=== PATIENT | male | born 1990 | race American Indian/Alaskan Native ===

== ENCOUNTER 2021-04-01 15:13 | Emergency (ER) | payer SELFPAY ==
--- OUTSIDE RECORDS SUMMARY | 2021-04-01 15:16 | XMS REPORT | Continuity of Care Document ---
:1990 Author Organization [facility] t Address [address] [place] [address] Care Team Providers Name Role Phone UNKNOWN, REFFERING Primary Care Physician Unavailable ADINA RYAN M.D., ADINA Ash M.D. Attending Clinician Unavailable ADINA RYAN M.D., ADINA Ash Admitting Clinician Lobo giang Problems This patient has no known problems. Allergies, Adverse Reactions, Alerts This patient has no known allergies or adverse reactions. Medications This patient has no known medications. Procedures This patient has no known procedures. Results Test Description Test Time Test Comments Results Result Comments Source Ceruloplasmin 2017-08-17 08:36:00 Test Item Value Reference Range Interpretation Comme nts Ceruloplasmin (test code = 496429) 24.9 mg/dL 16.0-31.0 N Treponema Pallidum [id number] 22:05:00 Test Item Value Reference Range Interpretation Comments Treponemal Antibody IgG (test Non-reactive Non-reactive N code = TREPAB) [id number] 07:39:00 Test Item Value Reference Range Interpretation Comments Phosphorus (test code = PO4) 4.2 mg/dL 2.70-4.50 N Thyroid Stimulating Hormone (TSH)2017-08-07 07:51:00 Test Item Value Reference Range Interpretation Comments TSH (test code = TSH) 1.33 mIU/mL 0.270-4.200 N Lipid [id number] 07:46:00 Test Item Value Reference Range Interpretation Comments Cholesterol (test 177 mg/dL 0-200 N code = CHOL) Triglycerides (test 71 mg/dL 9-200 N code = TRIG) HDL (test code = 39 mg/dL 40-60 L HDL) Chol/HDL (test code 4.5 Ratio 0.0-5.0 N = CHOLPHDL) LDL, Calculated 124 0-130 N (NOTE)RISK O F HEART (test code = LDLC) DISEASEPu blished by Russian Heart AssociationAnal yte Optim al Boderline Increased RiskC HOL <200 200-239 >240TRI G <150 150-199 >200HDL Male: >60 <40HDL Female: >60 <50 LDL < 100 130-15 9 >160 LDL NEAR OPTIMAL IS 100- 129 VLDL (test code = 14 mg/dL 5-40 N VLDL) LDL/HDL (test code = 3 LDLPHDL) RPR, [id number] 06:55:00 Test Item Value Reference Range Interpretation Comments RPR (test code = RPR) Non-Reactive Non-Reactive N [id number] 22:21:00 Test Item Value Reference Range Interpretation Comments Amphetamine (test Negative Negative N For diagno stic code = AMPH) purposes only, positive result s should always b e assessedin conjunctionwith the patient's medic al history,clinica l examination and otherfindings.T o fulfill legal requirements, a more specific altern ate chemical method must be used inorder to obtain a Confirmed aliyah lytical result. GC/MS i s the preferred confi rmatory method. Barbiturates (test Negative Negative N code = JESSE) Benzodiazepine (test Negative Negative N code = LOW) Cocaine (test code = Negative Negative N COCA) Methadone (test code Negative Negative N = MTHD) Opiates (test code = Negative Negative N OPIA) PCP (test code = PCP) Negative Negative N Propoxyphene (test Negative Negative N code = PROPOX) THC (test code = THC) Negative Negative N Alcohol, Urine (test <0.01 g/dL 0.00-0.01 N code = ETOHU) Urinalysis [id number] 22:13:00 Test Item Value Reference Range Interpretation Comments Color (test code = Yellow Yellow,Straw,Pl N COLOR) yellow Clarity (test code = Clear Clear N CLAR) Specific [place] (test 1.019 1.001-1.035 N code = SPGR) pH (test code = PH) 5.0 5.0-9.0 N Ketone (test code = 150 mg/dL Negative A KET) Glucose (test code = Negative mg/dL Negative N GLUCUR) Protein (test code = Negative mg/dL Negative N PROT) Bilirubin (test code = See IctoTest mg/dL Negative A BILI) Occult Blood (test code Small Negative A = UDOB) Urobilinogen (test code 0.2 mg/dL 0.2-1.0 N = UROB) Nitrite (test code = Negative Negative N NIT) Leuk Esterase (test Negative Negative N code = LEUK) Ictotest (test code = Confirmed Negative Negative,Confirmed N ICTOTEST) Negative Micros Exam (test code Indicated = MEXAM) Epithelial Cells (test 0-2 /LPF 0-30 A code = EPI) WBC, Urine (test code = 0-5 /HPF 0-5 N UWBC) RBC, Urine (test code = 0-3 /HPF 0-5 A URBC) Mucous, Urine (test Few /HPF code = UMUC) Bacteria (test code = None /HPF BACT) Comprehensive Metabolic [id number] 20:50:00 Test Item Value Reference Range Interpretation Comments Sodium (test code = 133 mmol/L 135-145 L NA) Potassium (test 3.8 mmol/L 3.5-5.1 N code = K) Chloride (test code 96 mmol/L 98-105 L = CL) Carbon Dioxide 26 mmol/L 22-29 N (test code = CO2) Glucose (test code 88 mg/dL 70-115 N = GLU) Blood Urea Nitrogen 10 mg/dL 6-20 N (test code = BUN) Creatinine (test 0.9 mg/dL 0.7-1.2 N code = CREAT) Calcium (test code 9.8 mg/dL 8.3-10.5 N = CA) Prot Total (test 8.0 g/dL 6.4-8.3 N code = TP) Albumin (test code 4.5 g/dL 3.5-5.2 N = ALB) A/G Ratio (test 1.3 Ratio code = AGRATIO) Globulin (test code 3.5 2.9-3.1 H = GLOB) Bili Total (test 0.6 mg/dL 0.1-0.9 N code = TBIL) Alk Phos (test code 91 U/L 40-129 N = APHOS) AST (test code = 18 U/L 1-40 N AST) ALT (test code = 24 U/L 1-41 N ALT) BUN/Creatinine 11.1 Ratio (test code = BCRATIO) Anion Gap (test 11 mmol/L 7-16 N code = AGAP) Estimated GFR (test >60 eGFR (es timated code = GFR) mL/min/1.73m2 Glomerular Phong tration Rate) is an est imated value,calculate d from the patient's s noelle creatinine usin g the MDRD equation.I t is NOT the patient 's actual GFR. The eGFR provides a more clinicallyusefu l measure of kidn ey disease than se rum creatinine alone.This calculation rudolph es sex and race into account, if the informationis provided. If th e race is not provided , and the patient isAfrican-Ameri can, multiply by 1.2 12. If sex is not prov ided, and thepatient is female, multipl y by 0.742. Results for patients <18 ye ars ofage have not been validated by th e MDRD study and shoul d be interpretedwith caution.eGFR Re sult Interpretation: eGFR > or = 60 is in t he Normal RangeeGF R < 60 may mean kidney diseaseeGFR < 1 5 may mean kidney failureRange s recommended by the National Kidney Foundation,http ://nkd ep.nih.gov CBC with [id number] 20:36:00 Test Item Value Reference Range Interpretation Comments WBC (test code = WBC) 7.7 K/cumm 4.4-10.5 N RBC (test code = RBC) 5.64 M/cumm 4.10-5.70 N Hemoglobin (test code = HGB) 16.6 gm/dL 13.4-17.4 N Hematocrit (test code = HCT) 49.2 % 38.7-52.0 N MCV (test code = MCV) 87.2 fL 80-100 N MCH (test code = MCH) 29.4 pg 27.0-32.5 N MCHC (test code = MCHC) 33.8 g/dL 32.0-37.5 N RDW (test code = RDW) 12.3 % 11.5-14.5 N Platelet Count (test code = 184 K/cumm 140-440 N PLTCT) MPV (test code = MPV) 7.7 fL Diff Method (test code = DIFFM) Auto Neutrophil (test code = NEUT) 70.9 % 36-70 H Lymphocyte (test code = LYMPH) 19.1 % 12-44 N Monocyte (test code = MONO) 8.8 % 0-11 N Eosinophil (test code = EOS) 0.8 % 0-7 N Basophil (test code = BASO) 0.4 % 0-2 N Neutro Abs (test code = ANEUT) 5.4 K/cumm 1.6-7.4 N Lymph Abs (test code = ALYMPH) 1.5 K/cumm 0.5-4.6 N Webb Abs (test code = AMONO) 0.7 K/cumm 0.0-1.2 N Eos Abs (test code = AEOS) 0.06 K/cumm 0.00-0.74 N Baso Abs (test code = ABASO) 0.0 K/cumm 0.00-0.21 N
[2021-04-01 15:46] LABS: Absolute Lymphocytes (CBC) 2.5 K/uL (0.7-4.9); Basophils % 0.5 % (0-1.3); Hematocrit 53.8 % (39.6-49.0); Lymphocytes % 26.9 % (15.3-44.8); MPV 8.9 fL (7.6-11.3)
[2021-04-01 16:06] LABS: ALT/SGPT 39 U/L (12-78); AST/SGOT 19 U/L (15-37); Albumin 3.9 g/dL (3.4-5.0); Alkaline Phosphatase 97 U/L (45-117); BUN Blood Urea Nitrogen 13 mg/dL (7-18); Bicarbonate 26 mmol/L (21-32); Bilirubin Direct 0.2 mg/dL (0-0.2); Bilirubin Total 0.6 mg/dL (0.2-1.0); Glucose Level 94 mg/dL (74-106); Lipase 64 U/L (73-393); Potassium 4.6 mmol/L (3.5-5.1); Protein, Total 7.7 g/dL (6.4-8.2); Sodium Level 140 mmol/L (136-145)
[2021-04-01] MEDS ORDERED: ONDANSETRON 4 MG/2 ML VIAL ONE (16:16)
[2021-04-01] MEDS ORDERED: NA CHLORIDE 0.9% 1,000 ML ONE (16:17)
[2021-04-01] MEDS ORDERED: FAMOTIDINE 20 MG/2 ML VIAL IV ONE (16:17)
--- NOTE | 2021-04-01 17:06 | RAD REPORT ---
EXAM DESCRIPTION: US - Abdomen Exam Limited - 04/01/2021 4:30 pm CLINICAL HISTORY: abdominal pain COMPARISON: CT ABD PELVIS W CONTRAST dated 07/07/2014 FINDINGS: The gallbladder demonstrates no gallstones. No pericholecystic fluid or gallbladder wall t hickening. The common bile duct is normal measuring 4 mm. The liver demonstrates no findings of intrahepatic biliary dilatation. IMPRESSION: Negative for cholelithiasis or sonographic evidence of acute cholecystitis.
--- NOTE | 2021-04-01 17:16 | EDPHYS ---
Physician Documentation [facility] Name: Brad Recinos Jr Age: 30 yrs Sex: Male : 1990 Arrival Date: 04/01/2021 Time: 15:14 Bed 12 Private MD: ED Physician Jomar Haro HPI: 04/01 15:45 This 30 yrs old Other Male presents to ER via Ambulatory with complaints of Abdominal cp Pain. 15:45 The patient presents with abdominal pain mid abdomen. cp 15:45 Onset: The symptoms/episode began/occurred 1 month(s) ago. cp 15:45 The symptoms do not radiate. Associated signs and symptoms: Pertinent positives: nausea cp and vomiting, Pertinent negatives: chest pain, constipation, diarrhea, dysuria, fever, testicular pain. The symptoms are described as sharp. 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 - Social history:: Smoking status: Patient reports the use of cigarette tobacco products, smokes one-half pack cigarettes per day, Patient uses alcohol, occasionally. ROS: 15:50 Constitutional: Negative for body aches, chills, fever, poor PO intake. cp 15:50 Eyes: Negative for injury, pain, redness, and discharge. cp 15:50 Abdomen/GI: Positive for abdominal pain, Negative for vomiting, diarrhea, constipation, anorexia. Exam: 15:55 Constitutional: The patient appears in no acute distress, alert, awake, non-toxic, well cp developed, well nourished, obese. 15:55 Head/Face: Normocephalic, atraumatic. cp 15:55 Eyes: Periorbital structures: appear normal, Conjunctiva: normal, no exudate, no injection, Sclera: no appreciated abnormality, Lids and lashes: appear normal, bilaterally. 15:55 ENT: External ear(s): are unremarkable, Nose: is normal, Mouth: Lips: moist, Oral mucosa: moist, Posterior pharynx: Airway: no evidence of obstruction, patent. 15:55 Neck: ROM/movement: is normal, is supple, without pain, no range of motions limitations. 15:55 Chest/axilla: Inspection: normal. 15:55 Cardiovascular: Rate: normal, Rhythm: regular. 15:55 Respiratory: the patient does not display signs of respiratory distress, Respirations: normal, no use of accessory muscles, no retractions, labored breathing, is not present, Breath sounds: are clear throughout, no decreased breath sounds, no stridor, no wheezing. 15:55 Abdomen/GI: Inspection: abdomen appears normal, Bowel sounds: active, all quadrants, Palpation: soft, in all quadrants, moderate abdominal tenderness, in the epigastric area, umbilical area and right upper quadrant, rebound tenderness, is not appreciated, involuntary guarding, is not appreciated. 15:55 Back: pain, is absent, ROM is normal. Vital Signs: 15:27 BP 119 / 80; Pulse 88; Resp 20; Temp 97.5(TE); Pulse Ox 99% on R/A; Weight 113.4 kg kg (R); Height 6 ft. 0 in. (182.88 cm) (R); Pain 6/10; 15:27 Body Mass Index 33.91 (113.40 kg, 182.88 cm) kg MDM: 15:40 Patient medically screened. 17:15 Data reviewed: vital signs, nurses notes, lab test result(s), radiologic studies, cp ultrasound. 04/01 15:33 Order name: Basic Metabolic Panel; Complete Time: 16:07 kg 04/01 16:07 Interpretation: Normal except: CL 110. 04/01 15:33 Order name: CBC with Diff; Complete Time: 16:07 kg 04/01 16:07 Interpretation: Normal except: RBC 6.10; HGB 18.2; HCT 53.8. 04/01 15:33 Order name: Hepatic Function; Complete Time: 16:07 kg 04/01 16:07 Interpretation: Normal except: GLOB 3.8; A/G 1.0. 04/01 15:33 Order name: Lipase; Complete Time: 16:07 kg 04/01 16:07 Interpretation: LIP 64; Reviewed. 04/01 15:44 Order name: US Abdomen Limited: epigastric/RUQ; Complete Time: 17:11 cp 04/01 17:11 Interpretation: Report reviewed. cp 04/01 15:33 Order name: IV Saline Lock; Complete Time: 15:52 kg 04/01 15:33 Order name: Labs collected and sent; Complete Time: 15:52 kg 04/01 17:12 Order name: PO challenge; Complete Time: 17:27 cp Administered Medications: 16:01 Drug: NS 0.9% 1000 ml Route: IV; Rate: 1 bolus; Site: right antecubital; ss 17:24 Follow up: IV Status: Completed infusion; IV Intake: 1000ml vg1 16:02 Drug: Pepcid (famotidine) 20 mg Route: IVP; Site: right antecubital; ss 16:55 Follow up: Response: No adverse reaction; Marked relief of symptoms vg1 16:04 Drug: Zofran (Ondansetron) 4 mg Route: IVP; Site: right antecubital; ss 16:55 Follow up: Response: No adverse reaction; Marked relief of symptoms vg1 Disposition: 18:06 Co-signature as Attending Physician, Jomar Haro MD. rn Disposition Summary: 04/01/21 17:16 Discharge Ordered Location: Home cp Problem: an ongoing problem cp Symptoms: have improved cp Condition: Stable cp Diagnosis - Abdominal pain, unspecified cp Followup: cp - With: Private Physician - When: 1 - 2 days - Reason: Recheck today's complaints Discharge Instructions: - Discharge Summary Sheet cp - Abdominal Pain, Adult cp - Gallbladder Nuclear Scan cp Forms: - Medication Reconciliation Form cp - Thank You Letter cp - Antibiotic Education cp - Prescription Opioid Use cp Prescriptions: - Protonix 40 mg Oral Tablet - take 1 tablet by ORAL route once daily; 30 tablet; Refills: 0, Product cp Selection Permitted - Zofran 4 mg Oral Tablet - take 1 tablet by ORAL route every 12 hours As needed; 20 tablet; Refills: 0, cp Product Selection Permitted Signatures: Dispatcher [employer] Jomar Hood MD MD rn Smirch, Shelby, RN RN ss Page, Corey, PA PA cp Sia Kellogg RN RN kg Garcia, Victoria RN vg1
--- NOTE | 2021-04-01 17:16 | ER ---
Nurse's Notes [facility] Name: Brad Recinos Jr Age: 30 yrs Sex: Male : 1990 Arrival Date: 04/01/2021 Time: 15:14 Bed 12 Private MD: Diagnosis: Abdominal pain, unspecified Presentation: 04/01 15:27 Chief complaint: Patient states: Abdominal pain. Pt stated, " My stomach is hurting and kg has been for a long time." Pt stated that he has been to ER before and they told him he has gallbladder problems. Coronavirus screen: Client denies travel out of the [place] in the last 14 days. At this time, unable to obtain information related to travel outside the [place] At this time, the client does not indicate any symptoms associated with coronavirus-19. Ebola Screen: Patient negative for fever greater than or equal to 101.5 degrees Fahrenheit, and additional compatible Ebola Virus Disease symptoms Patient denies exposure to infectious person. Patient denies travel to an Ebola-affected area in the 21 days before illness onset. Initial Sepsis Screen: Does the patient meet any 2 criteria? No. Patient's initial sepsis screen is negative. Does the patient have a suspected source of infection? No. Patient's initial sepsis screen is negative. Risk Assessment: Do you want to hurt yourself or someone else? Patient reports no desire to harm self or others. Onset of symptoms is unknown. 15:27 Method Of Arrival: Ambulatory kg 15:27 Acuity: ANABELLE 3 kg Triage Assessment: 15:30 General: Appears in no apparent distress. Behavior is calm, cooperative, appropriate kg for age, quiet. Pain: Complains of pain in epigastric area, umbilical area, right upper quadrant and left upper quadrant Pain currently is 6 out of 10 on a pain scale. at worst was 8 out of 10 on a pain scale. level that patient reports is acceptable is 3 out of 10 on a pain scale. Quality of pain is described as "tightening" Pain began Unknown. GI: Reports nausea. 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 - Social history:: Smoking status: Patient reports the use of cigarette tobacco products, smokes one-half pack cigarettes per day, Patient uses alcohol, occasionally. Screenin:03 Abuse screen: Denies threats or abuse. Nutritional screening: No deficits noted. vg1 Tuberculosis screening: No symptoms or risk factors identified. Fall Risk No fall in past 12 months (0 pts). No secondary diagnosis (0 pts). IV access (20 points). Ambulatory Aid- None/Bed Rest/Nurse Assist (0 pts). Gait- Normal/Bed Rest/Wheelchair (0 pts) Mental Status- Oriented to own ability (0 pts). Total Valdes Fall Scale indicates No Risk (0-24 pts). Assessment: 15:32 Pain:. ap3 15:50 General: Appears in no apparent distress. comfortable, Behavior is calm, cooperative. vg1 Pain: Complains of pain in epigastric area and right upper quadrant Pain currently is 6 out of 10 on a pain scale. Quality of pain is described as aching, Pain began about a week ago. Neuro: Level of Consciousness is awake, alert, obeys commands, Oriented to person, place, time, situation. Cardiovascular: Patient's skin is warm and dry. Respiratory: Airway is patent Respiratory effort is even, unlabored. GI: Bowel sounds present X 4 quads. Abdomen is tender to palpation in epigastric area and right upper quadrant Reports diarrhea, nausea, Patient currently denies vomiting. : No signs and/or symptoms were reported regarding the genitourinary system. EENT: No signs and/or symptoms were reported regarding the EENT system. Derm: Skin is intact, is healthy with good turgor. Musculoskeletal: Circulation, motion, and sensation intact. 16:55 Reassessment: Patient appears in no apparent distress at this time. No changes from vg1 previously documented assessment. Patient and/or family updated on plan of care and expected duration. Pain level reassessed. Patient is alert, oriented x 3, equal unlabored respirations, skin warm/dry/pink. 17:33 Reassessment: Patient appears in no apparent distress at this time. Patient and/or vg1 family updated on plan of care and expected duration. Pain level reassessed. Patient is alert, oriented x 3, equal unlabored respirations, skin warm/dry/pink. Vital Signs: 15:27 BP 119 / 80; Pulse 88; Resp 20; Temp 97.5(TE); Pulse Ox 99% on R/A; Weight 113.4 kg kg (R); Height 6 ft. 0 in. (182.88 cm) (R); Pain 6/10; 15:27 Body Mass Index 33.91 (113.40 kg, 182.88 cm) kg ED Course: 15:14 Patient arrived in ED. as 15:29 Triage completed. kg 15:30 Arm band placed on right wrist. kg 15:33 Inserted saline lock: 20 gauge in right antecubital area, using aseptic technique. kg ,using aseptic technique. BY Roula Blood collected. 15:34 Joce White PA is PHCP. cp 15:34 Jomar Haro MD is Attending Physician. cp 15:43 Hina Harris, AUGUST is Primary Nurse. ss 16:04 Patient has correct armband on for positive identification. Bed in low position. Call vg1 light in reach. 16:30 US Abdomen Limited: epigastric/RUQ In Process Unspecified. EDMS 16:55 No provider procedures requiring assistance completed. vg1 17:15 Diet: Patient given juice. Tolerated well. jp3 17:33 IV discontinued, intact, bleeding controlled, No redness/swelling at site. Pressure vg1 dressing applied. Administered Medications: 16:01 Drug: NS 0.9% 1000 ml Route: IV; Rate: 1 bolus; Site: right antecubital; ss 17:24 Follow up: IV Status: Completed infusion; IV Intake: 1000ml vg1 16:02 Drug: Pepcid (famotidine) 20 mg Route: IVP; Site: right antecubital; ss 16:55 Follow up: Response: No adverse reaction; Marked relief of symptoms vg1 16:04 Drug: Zofran (Ondansetron) 4 mg Route: IVP; Site: right antecubital; ss 16:55 Follow up: Response: No adverse reaction; Marked relief of symptoms vg1 Intake: 17:24 IV: 1000ml; Total: 1000ml. vg1 Outcome: 17:16 Discharge ordered by . cp 17:33 Discharged to home ambulatory. vg1 17:33 Condition: stable 17:33 Discharge instructions given to patient, Instructed on discharge instructions, follow up and referral plans. medication usage, Demonstrated understanding of instructions, follow-up care, medications, Prescriptions given X 2. 17:34 Patient left the ED. vg1 Signatures: Dispatcher [employer] EDMarian Patel Shelby, RN RN ss Joce White PA PA cp Prokisch, Amanda, RN RN ap3 Dharmesh Kenney jp3 Peyton Callaway RN RN vg1 Sia Kellogg, RN RN kg
[2021-04-01 17:41] VITALS: BP 119/80; TEMP 97.5; O2SAT 99
== END 2021-04-01 17:34 | disposition home or self-care (01) ==
LOC: ER 15:13
DX: R10.9 Unspecified abdominal pain (principal); Z87.820 Personal history of traumatic brain injury
CPT/HCPCS: 36415; 76705; 80048; 80076; 83690; 85025; 96361; 96374; 96375; 99284; J2405; J7030

== ENCOUNTER 2022-09-28 09:57 | Emergency (ER) | payer SELFPAY ==
--- OUTSIDE RECORDS SUMMARY | 2022-09-28 10:01 | XMS REPORT | Continuity of Care Document ---
:1990 Author Organization [facility] t Address [address] [place] [address] Care Team Providers Name Role Phone UNKNOWN, REFFERING Primary Care Physician Unavailable ADINA RYAN M.D., ADINA Ahs M.D. Attending Clinician Unavailable ADINA RYAN M.D., [...] Interpretation Comme nts Ceruloplasmin (test code = 398499) 24.9 mg/dL 16.0-31.0 N Treponema Pallidum [id number] 22:05:00 Test Item Value Reference Range Interpretation Comments Treponemal Antibody IgG (test Non-reactive Non-reactive N code = TREPAB) [id number] 07:39:00 Test Item Value Reference Range Interpretation Comments Phosphorus (test code = PO4) 4.2 mg/dL 2.70-4.50 N Thyroid Stimulating Hormone (TSH)2017-08-07 07:51:00 Test Item Value Reference Range Interpretation Comments TSH (test code = TSH) 1.33 mIU/mL 0.270-4.200 N Lipid [id number] 07:46:00 Test Item Value Reference Range Interpretation Comments Cholesterol (test 177 mg/dL 0-200 N code = CHOL) Triglycerides (test 71 mg/dL 9-200 N code = TRIG) HDL (test code = 39 mg/dL 40-60 L HDL) Chol/HDL (test code 4.5 Ratio 0.0-5.0 N = CHOLPHDL) LDL, Calculated 124 0-130 N (NOTE)RISK O F HEART (test code = LDLC) DISEASEPu blished by [place]wandan Heart AssociationAnal yte Optimal Boderli ne Increased RiskC HOL <200 200-239 >240TR IG <150 150-199 >200HDL Male: >60 <40HDL Fema le: >60 <50LDL < 100 130-159 >160LDL NEAR OPTIMAL IS 100- 129 VLDL (test code = 14 mg/dL 5-40 N VLDL) LDL/HDL (test code = 3 LDLPHDL) RPR, [id number] 06:55:00 Test Item Value Reference Range Interpretation Comments RPR (test code = RPR) Non-Reactive Non-Reactive N [id number] 22:21:00 Test Item Value Reference Range Interpretation [...] g/dL 0.00-0.01 N code = ETOHU) Urinalysis [id number] 22:13:00 Test Item Value Reference Range Interpretation Comments Color (test code = Yellow Yellow,Straw,Pl N COLOR) yellow Clarity (test code = Clear Clear N CLAR) Specific [place] (test 1.019 1.001-1.035 N code = SPGR) [...] code = None /HPF BACT) Comprehensive Metabolic [id number] 20:50:00 Test Item Value Reference Range Interpretation [...] National Kidney Foundation,http ://nkd ep.nih.gov CBC with [id number] 20:36:00 Test Item Value Reference Range Interpretation [...] code = ALYMPH) 1.5 K/cumm 0.5-4.6 N Jack Abs (test code = AMONO) 0.7 K/cumm 0.0-1.2 N Eos Abs (test code = AEOS) 0.06 K/cumm 0.00-0.74 N Baso Abs (test code = ABASO) 0.0 K/cumm 0.00-0.21 N
[2022-09-28] MEDS ORDERED: LORazepam 2 MG/ML VIAL ONE (12:46)
[2022-09-28] MEDS ORDERED: NA CHLORIDE 0.9% 1,000 ML ONE (12:46)
[2022-09-28 12:55] LABS: Absolute Lymphocytes (CBC) 2.5 K/uL (0.7-4.9); Hematocrit 47.5 % (39.6-49.0); Lymphocytes % 29.3 % (15.3-44.8); MCV 87.4 fL (80-100); MPV 9.4 fL (7.6-11.3); RBC Red Blood Cell Count 5.43 M/uL (4.33-5.43)
[2022-09-28 13:04] LABS: Potassium 4.3 mmol/L (3.5-5.1)
--- NOTE | 2022-09-28 14:03 | ER ---
Nurse's Notes [facility] Name: Brad Recinos Jr Age: 31 yrs Sex: Male : 1990 Arrival Date: 09/28/2022 Time: 10:01 Bed 11 Private MD: Diagnosis: Tinea cruris;Insomnia Presentation: 09/28 10:13 Chief complaint: Patient states: Unable to sleep x 1 week post nicotine patch and rash jl7 to groin area. Coronavirus screen: At this time, the client does not indicate any symptoms associated with coronavirus-19. Ebola Screen: No symptoms or risks identified at this time. Initial Sepsis Screen: Does the patient meet any 2 criteria? No. Patient's initial sepsis screen is negative. Does the patient have a suspected source of infection? No. Patient's initial sepsis screen is negative. Risk Assessment: Do you want to hurt yourself or someone else? Patient reports no desire to harm self or others. Onset of symptoms is unknown. 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 - Social history:: Smoking status: Patient reports the use of cigarette tobacco products. Screenin:14 [facility] ED Fall Risk Assessment (Adult) History of falling in the last 3 months, ss including since admission. Abuse screen: Denies threats or abuse. Denies injuries from another. Nutritional screening: No deficits noted. Tuberculosis screening: Never had TB. Assessment: 13:30 General: Appears in no apparent distress. comfortable, Behavior is calm, cooperative. ss Neuro: Level of Consciousness is awake, alert, obeys commands, Oriented to person, place, time, situation. Respiratory: Airway is patent Respiratory effort is even, unlabored, Respiratory pattern is regular, symmetrical. Derm: Skin is intact, is healthy with good turgor, Skin is dry, Skin is pink, warm \\T\\ dry. normal. Musculoskeletal: Circulation, motion, and sensation intact. Range of motion: intact in all extremities, Swelling absent. 14:14 Reassessment: Patient appears in no apparent distress at this time. Patient and/or ss family updated on plan of care and expected duration. Pain level reassessed. Patient is alert, oriented x 3, equal unlabored respirations, skin warm/dry/pink. Vital Signs: 10:13 BP 118 / 88; Pulse 84; Resp 17; Temp 97.9; Pulse Ox 97% ; jl7 ED Course: 10:01 Patient arrived in ED. rg4 10:02 Cristiana Davison FNP-C is PHCP. kb 10:02 Jomar Haro MD is Attending Physician. kb 10:14 Triage completed. jl7 10:14 Arm band placed on right wrist. Patient placed in waiting room, Patient notified of jl7 wait time. 12:45 Inserted saline lock: 20 gauge in right antecubital area, using aseptic technique. zm Blood collected. 12:45 Basic Metabolic Panel Sent. zm 12:45 CBC with Diff Sent. zm 13:30 Patient has correct armband on for positive identification. ss 13:30 No provider procedures requiring assistance completed. ss 14:14 Hina Harris, AUGUST is Primary Nurse. ss 14:15 IV discontinued, intact, bleeding controlled, No redness/swelling at site. Pressure ss dressing applied. Administered Medications: 12:45 Drug: Ativan (LORazepam) 0.5 mg Route: IVP; Site: right antecubital; ss 14:15 Follow up: Response: No adverse reaction ss 12:46 Drug: NS 0.9% 1000 ml Route: IV; Rate: 1000 ml; Site: right antecubital; ss 14:15 Follow up: IV Status: Completed infusion; IV Intake: 1000ml ss Medication: 14:14 VIS not applicable for this client. ss Intake: 14:15 IV: 1000ml; Total: 1000ml. ss Outcome: 14:03 Discharge ordered by . kb 14:15 Patient left the ED. ss 14:15 Discharged to home ambulatory. ss 14:15 Condition: good 14:15 Discharge instructions given to patient, family, Instructed on discharge instructions, follow up and referral plans. medication usage, Demonstrated understanding of instructions, follow-up care, medications. Signatures: Cristiana Davison FNP-C MOTHER TESTER-Ckb Hina Harris, RN RN Chelsea Barahona rg4 Austin Wilkerson, RN RN jl7 Nati Koenig zm
--- NOTE | 2022-09-28 14:03 | EDPHYS ---
Physician Documentation [facility] Name: Brad Recinos Jr Age: 31 yrs Sex: Male : 1990 Arrival Date: 09/28/2022 Time: 10:01 Bed 11 Private MD: ED Physician Jomar Haro HPI: 09/28 13:57 This 31 yrs old Male presents to ER via Ambulatory with complaints of Rash. kb 13:57 The patient's rash thought to be caused by an unknown cause. The rash is located on the kb groin. The rash can be described as erythematous. Onset: The symptoms/episode began/occurred 1 week(s) ago. Associated signs and symptoms: Pertinent positives: itching. Severity of symptoms: At their worst the symptoms were mild in the emergency department the symptoms are unchanged. The patient has not experienced similar symptoms in the past. The patient has not recently seen a physician. Patient is a 31-year-old male who presents for rash to genital area and insomnia for 2 days due to use of nicotine patch. States he feels dehydrated and shaky because he has not slept.. 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 - Social history:: Smoking status: Patient reports the use of cigarette tobacco products. ROS: 13:55 Constitutional: Negative for fever, chills, and weight loss. kb 13:55 Skin: Positive for rash, of the groin. 13:55 Psych: Positive for insomnia. 13:55 All other systems are negative. Exam: 13:56 Constitutional: This is a well developed, well nourished patient who is awake, alert, kb and in no acute distress. Head/Face: Normocephalic, atraumatic. ENT: Moist Mucous membranes Cardiovascular: Regular rate and rhythm with a normal S1 and S2. No gallops, murmurs, or rubs. No pulse deficits. Respiratory: Respirations even and unlabored. No increased work of breathing. Talking in full sentences Abdomen/GI: Soft, non-tender. No distention MS/ Extremity: Pulses equal, no cyanosis. Neurovascular intact. Full, normal range of motion. Neuro: Awake and alert, GCS 15, oriented to person, place, time, and situation. Moves all extremities. Normal gait. Psych: Awake, alert, with orientation to person, place and time. Behavior, mood, and affect are within normal limits. 13:56 Skin: rash a mild rash is noted, rash can be described as erythematous, on the groin. Vital Signs: 10:13 BP 118 / 88; Pulse 84; Resp 17; Temp 97.9; Pulse Ox 97% ; jl7 MDM: 10:11 Patient medically screened. 13:58 Differential diagnosis: Tinea cruris, contact dermatitis, candidiasis, adverse reaction kb to nicotine patch, insomnia. Data reviewed: vital signs, nurses notes. Counseling: I had a detailed discussion with the patient and/or guardian regarding: the historical points, exam findings, and any diagnostic results supporting the discharge/admit diagnosis, lab results, the need for outpatient follow up, a family practitioner, to return to the emergency department if symptoms worsen or persist or if there are any questions or concerns that arise at home. ED course: Patient is a 31-year-old male who presents for rash to groin, insomnia. Exam reveals rash consistent with tinea cruris. Patient complained of feeling extremely dehydrated so serum labs were obtained and reviewed, within normal limits. Patient educated to avoid nicotine patches and to use [id number] cream for rash. Verbal understanding received.. 14:03 I considered the following discharge prescriptions or medication management in the emergency department I discussed and recommended Over The Counter medications, Antibiotics: At this time antibiotics are not recommended. 09/28 11:42 Order name: CBC with Diff 09/28 11:42 Order name: Basic Metabolic Panel 09/28 13:04 Order name: Basic Metabolic Panel; Complete Time: 13:06 EDIA 09/28 13:26 Order name: CBC with Automated Diff; Complete Time: 13:29 EDIA 09/28 11:42 Order name: IV Start; Complete Time: 12:45 kb Administered Medications: 12:45 Drug: Ativan (LORazepam) 0.5 mg Route: IVP; Site: right antecubital; ss 14:15 Follow up: Response: No adverse reaction ss 12:46 Drug: NS 0.9% 1000 ml Route: IV; Rate: 1000 ml; Site: right antecubital; ss 14:15 Follow up: IV Status: Completed infusion; IV Intake: 1000ml ss Disposition: 15:46 Co-signature as Attending Physician, Jomar Haro MD I reviewed the patient's care rn provided by the Advanced Practice Provider and agree with the diagnosis and treatment plan. Disposition Summary: 09/28/22 14:03 Discharge Ordered Location: Home kb Condition: Stable kb Diagnosis - Tinea cruris kb - Insomnia kb Followup: kb - With: Emergency Department - When: As needed - Reason: Worsening of condition Followup: kb - With: Private Physician - When: 2 - 3 days - Reason: Recheck today's complaints, Continuance of care, Re-evaluation by your physician Discharge Instructions: - Discharge Summary Sheet kb - Insomnia kb - Jock Itch, [id number] kb Forms: - Medication Reconciliation Form kb - Thank You Letter kb - Antibiotic Education kb - Prescription Opioid Use kb Signatures: Dispatcher [employer] EDCristiana Gee, HYDRO PLANT SITE MANAGER-C HYDRO PLANT SITE MANAGER-Jomar Martin MD MD rn Smirch, Shelby, RN RN ss Leal, Jahala RN RN jl7
[2022-09-28 16:25] VITALS: BP 118/88; TEMP 97.9; O2SAT 97
== END 2022-09-28 14:15 | disposition home or self-care (01) ==
LOC: ER 09:57
DX: B35.6 Tinea cruris (principal); G47.00 Insomnia, unspecified; F17.210 Nicotine dependence, cigarettes, uncomplicated
CPT/HCPCS: 36415; 80048; 85025; 96361; 96374; 99283; J7030

== ENCOUNTER 2023-04-20 11:05 | Emergency (ER) | payer SELFPAY ==
--- OUTSIDE RECORDS SUMMARY | 2023-04-20 11:08 | XMS REPORT | Continuity of Care Document ---
:1990 Author Organization [facility] t Address [address] [facility] [address] [place] [id number] Care Team Providers Name Role Phone UNKNOWN, REFFERING Primary Care Physician Unavailable ADINA GOODRICH M.D., ADINA Ash M.D. Attending Clinician Unavailable ADINA GOODRICH M.D., ADINA Ash Admitting Clinician Lobo giang [...] Interpretation Comme nts Ceruloplasmin (test code = 137622) 24.9 mg/dL 16.0-31.0 N Treponema Pallidum [id number] 22:05:00 Test Item Value Reference Range Interpretation Comments Treponemal Antibody IgG (test Non-reactive Non-reactive N code = TREPAB) [id number] 07:39:00 Test Item Value Reference Range Interpretation Comments Phosphorus (test code = PO4) 4.2 mg/dL 2.70-4.50 N Thyroid Stimulating Hormone (TSH)2017-08-07 07:51:00 Test Item Value Reference Range Interpretation Comments TSH (test code = TSH) 1.33 mIU/mL 0.270-4.200 N Lipid [id number] 07:46:00 Test Item Value Reference Range Interpretation Comments Cholesterol (test 177 mg/dL 0-200 N code = CHOL) Triglycerides (test 71 mg/dL 9-200 N code = TRIG) HDL (test code = 39 mg/dL 40-60 L HDL) Chol/HDL (test code 4.5 Ratio 0.0-5.0 N = CHOLPHDL) LDL, Calculated 124 0-130 N (NOTE)RISK O F HEART (test code = LDLC) DISEASEPu blished by Spanish Heart AssociationAnal yte Optimal Boderli ne Increased RiskC HOL <200 200-239 >240TR IG <150 150-199 >200HDL Male: >60 <40HDL Fema le: >60 <50LDL <100 130 -159 >160LDL NEAR OP TIMAL IS 100-129 VLDL (test code = 14 mg/dL 5-40 N VLDL) LDL/HDL (test code = 3 LDLPHDL) RPR, [id number] 06:55:00 Test Item Value Reference Range Interpretation Comments RPR (test code = RPR) Non-Reactive Non-Reactive N [id number] 22:21:00 Test Item Value Reference Range Interpretation [...] g/dL 0.00-0.01 N code = ETOHU) Urinalysis [id number] 22:13:00 Test Item Value Reference Range Interpretation Comments Color (test code = Yellow Yellow,Straw,Pl N COLOR) yellow Clarity (test code = Clear Clear N CLAR) Specific [place] (test 1.019 1.001-1.035 N code = SPGR) [...] code = None /HPF BACT) Comprehensive Metabolic [id number] 20:50:00 Test Item Value Reference Range Interpretation [...] National Kidney Foundation,http ://nkd ep.nih.gov CBC with [id number] 20:36:00 Test Item Value Reference Range Interpretation [...] code = ALYMPH) 1.5 K/cumm 0.5-4.6 N Cross Abs (test code = AMONO) 0.7 K/cumm 0.0-1.2 N Eos Abs (test code = AEOS) 0.06 K/cumm 0.00-0.74 N Baso Abs (test code = ABASO) 0.0 K/cumm 0.00-0.21 N Notes Date/Time Note Provider Source 2017-09-08 17:53:42-00:00 [facility] Discharge Summary PATIENT NAME: IVELISSE SCHUMACHER PHYSICIAN: Deb Bianchi MD Admitted: MR NUMBER: [id number] DISCHARGED: 08/13/2017 02:0 2:00 REASON FOR ADMISSION: Mr. Schumacher is a 26-year-old male with n o past psychiatric history, presenting for a 5-day history of new onset para noia, confusion, labile mood and verbal aggression in the context of psychoso cial stressors (his left him 2 weeks ago and has cut off all communicatio n. He lives with his mom 1 to 2 weeks of the month. She recently lost her h ouse and they have been living now at a hotel). This is also in the cont ext of a UDS that is negative x9. He is positive for delusions, "I'm going to and have STDs". He thinks his sister is going to shoot him. He thinks the FBI put a tap on his phone. He is positive for confusion. He does not recognize his family members. He had agitation and started slamming t he cabinets. He was also verbally aggressive. He had a labile mood and wa s one minute crying, next minute irritable. He stated that he may have bee n on acid on 08/02/2017, the day before the onset of this presentation, but t hen he came back on this claim. He was evaluated at [facility] [place], got a CT head which was within normal limits, and a UDS which was ne guillermo x9. He was sent home. During my discussion with the patient, he was ed adrian, asking about some immigration services, if we had gotten rid of hi s Allyn, if the FBI was coming. He states he has been worried about the FBI for the last 3 weeks. Family states that he has been a slightl y more isolative and talking less with family since [place] which is about 1 month prior. Other than that, family denies any other delusio ns, AVH, disorganized speech, behavior or negative symptoms of schizophrenia. They state that his hygiene is good. He has a good heart. He is responsible. 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 ADMITTING DIAGNOSIS: Brief psychotic disorder with marked stressor ve rsus substance-induced psychotic disorder versus psychotic disorder sec ondary to medical condition. Most medical causes were ruled out as CT head sh owed no acute changes, CBC wnls, vital signs were stable throughout admissi on, CMP and phosphorus levels unremarkable. UDS was negative x9 making substan ce use less likely, though it did not test for LSD. Case was discussed with ne urology who did not believe there was a neurologic pathology such as complex partial seizures causing this presentation. RPR and FTA-AB S were non-reactive and patient denies transporting hazardous materials at work as assembler truck trailer. His presentation is in the context of stressors and is of duration less than one month making acute psychotic disorder possib le, we had resolution of paranoia with medications. There is some concern for negative symptoms of schizophrenia 1 month prior, this may be a first psychotic break and part of a larger picture of schizophreniform disorder or s chizophrenia, only time will help elucidate this picture. As there is inadequ ate information due to the timing of events and the dis ease processes considered, we gave this patient the diagnosis of unspecified dale izophrenia spectrum and other psychotic disorder as his final diagnosis. FINAL DIAGNOSES: AXIS I: Unspecified schizophrenia spectrum and o ther psychotic disorder. AXIS II: None. 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 AXIS IV: Lives with mother in [place]. 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 [place] who visit him on a daily basis while in the unit. LEGAL HISTORY: [facility] Discharge Summary PATIENT NAME: IVELISSE SCHUMACHER PHYSICIAN: Deb Bianchi MD Admitted: MR NUMBER: [id number] DISCHARGED: 08/13/2017 02:0 2:00 REASON FOR ADMISSION: Mr. Schumacher is a 26-year-old male with n o past psychiatric history, presenting for a 5-day history of new onset para noia, confusion, labile mood and verbal aggression in the context of psychoso cial stressors (his left him 2 weeks ago and has cut off all communicatio n. He lives with his mom 1 to 2 weeks of the month. She recently lost her h ouse and they have been living now at a hotel). This is also in the cont ext of a UDS that is negative x9. He is positive for delusions, "I'm going to and have STDs". He thinks his sister is going to shoot him. He thinks the FBI put a tap on his phone. He is positive for confusion. He does not recognize his family members. He had agitation and started slamming t he cabinets. He was also verbally aggressive. He had a labile mood and wa s one minute crying, next minute irritable. He stated that he may have bee n on acid on 08/02/2017, the day before the onset of this presentation, but t hen he came back on this claim. He was evaluated at [facility] [place], got a CT head which was within normal limits, and a UDS which was ne guillermo x9. He was sent home. During my discussion with the patient, he was ed adrian, asking about some immigration services, if we had gotten rid of hi s Allyn, if the FBI was coming. He states he has been worried about the FBI for the last 3 weeks. Family states that he has been a slightl y more isolative and talking less with family since Thanks which is about 1 month prior. Other than that, family denies any other delusio ns, AVH, disorganized speech, behavior or negative symptoms of schizophrenia. They state that his hygiene is good. He has a good heart. He is responsible. 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 ADMITTING DIAGNOSIS: Brief psychotic disorder with marked stressor ve rsus substance-induced psychotic disorder versus psychotic disorder sec ondary to medical condition. Most medical causes were ruled out as CT head sh owed no acute changes, CBC wnls, vital signs were stable throughout admissi on, CMP and phosphorus levels unremarkable. UDS was negative x9 making substan ce use less likely, though it did not test for LSD. Case was discussed with ne urology who did not believe there was a neurologic pathology such as complex partial seizures causing this presentation. RPR and FTA-AB S were non-reactive and patient denies transporting hazardous materials at work as assembler truck trailer. His presentation is in the context of stressors and is of duration less than one month making acute psychotic disorder possib le, we had resolution of paranoia with medications. There is some concern for negative symptoms of schizophrenia 1 month prior, this may be a first psychotic break and part of a larger picture of schizophreniform disorder or s chizophrenia, only time will help elucidate this picture. As there is inadequ ate information due to the timing of events and the dis ease processes considered, we gave this patient the diagnosis of unspecified dale izophrenia spectrum and other psychotic disorder as his final diagnosis. FINAL DIAGNOSES: AXIS I: Unspecified schizophrenia spectrum and o ther psychotic disorder. AXIS II: None. 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 AXIS IV: Lives with mother in [place]. 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 Has supportive family in the [facility] who visit him on a daily basis while in the unit. LEGAL HISTORY: [facility] Discharge Summary None. High school is his highest level of education. PRINCIPAL PROCEDURES: Psychopharmacotherapy. SPECIAL PROCEDURE: None. [facility] Discharge Summary None. High school is his highest level of education. PRINCIPAL PROCEDURES: Psychopharmacotherapy. SPECIAL PROCEDURE: None. [facility] Discharge Summary HOSPITAL COURSE: Mr. Ivelisse Schumacher is a 26-year-old male that was admitted to Dr. Goodrich's team from 08/05/2017 to 08/13/2017. The patient was on unit restriction along with elopement and standard PI CU precautions. The patient was started on Risperdal 2 mg p.o. at bedtime fo r his psychotic symptoms; however, he experienced nausea and vomiting. He was also started on Vistaril 50 mg p.o. at bedtime p.r.n. for anxiety and tra zodone 50 mg p.o. at bedtime p.r.n. for sleep. Since the patient did experien ce nausea and vomiting with the Risperdal, we changed him to Zyprexa 10 mg p .o. at bedtime. We eventually increased this to Zyprexa 10 mg p.o. q. 12 hours, as the patient was still psychotic and paranoid. The patient re ceived multiple emergency medications while on the unit. We will give him 10-2-50, (10 mg Haldol IM, 2 mg Ativan IM and 50 mg Benadryl IM). These were administered on 08/06/2017, 08/08/2017, 08/09/2017 and 08/11/2017. He would either be grabbing urine samples and trying to escape. Another time, he w as going into female patient's room and was not redirectable. He has been involved in taking chairs and throwing chairs. Another time, he kic ked the door that came off the hinges and ran down the torres. Due to the par anoia plus these acts of agitation and violence, we did file on the patie nt. We are granted the OPC. Eventually the patient became less paranoid. The patient was med-compliant. Family visited on a regular basis. Family confir med that he has a history of acting out, destroying property when he becomes mad. He is regretful after they say that all of the episodes that have occu rred on the unit are 100% his baseline. After this, staff realized that they c ould eventually redirect him and no more emergency medications were given at the request of the family. Some labs were ordered to rule out medical cause s. Neurology was called. They do not believe the presentation sounded lik e a neurologic pathology. They did not come and see the patient after we s poke and discussed that it was most likely not necessary at this time. The patient did show symptom improvement. He attended daily assessments. He a ttended group, but was distracted and would rarely participate. On the day of discharge, the patient was deemed suitable for discharge based on no SI, HI, AVH, paranoia, improved mood and affect. He was sleeping well w ith relief from the trazodone. His insight is poor, as he could not remember why or what caused the psychosis. He was regretful though of his mo re aggressive acts while on the unit. His judgment was fair to poor, but angelika adkins assured us that this was his baseline and they felt safe taking him home. The patient's affect became less blunted. His thought process became more or ganized and less limited. He was able to speak about his hobbies and his w ork and plans for work when he left. He became a little bit less agitated an d had fewer episodes of trying to escape. He was no longer paranoid on d ischarge. The patient's family visited him on a daily basis and stated t hat they thought he was back to his baseline as far as communication and cogn ition, that he was talking with them as normal, that he was no longer expre ssing any paranoid thoughts, that they felt safe taking him home and did not feel like him or they would be in danger. The patient plans to return home, continue his psychotropic medications and follow up with his outpatient ps ychiatrist. [facility] Discharge Summary HOSPITAL COURSE: Mr. Ennes Gigic is a 26-year-old male that was admitted to Dr. Goodrich's team from 08/05/2017 to 08/13/2017. The patient was on unit restriction along with elopement and standard PI CU precautions. The patient was started on Risperdal 2 mg p.o. at bedtime fo r his psychotic symptoms; however, he experienced nausea and vomiting. He was also started on Vistaril 50 mg p.o. at bedtime p.r.n. for anxiety and tra zodone 50 mg p.o. at bedtime p.r.n. for sleep. Since the patient did experien ce nausea and vomiting with the Risperdal, we changed him to Zyprexa 10 mg p .o. at bedtime. We eventually increased this to Zyprexa 10 mg p.o. q. 12 hours, as the patient was still psychotic and paranoid. The patient re ceived multiple emergency medications while on the unit. We will give him 10-2-50, (10 mg Haldol IM, 2 mg Ativan IM and 50 mg Benadryl IM). These were administered on 08/06/2017, 08/08/2017, 08/09/2017 and 08/11/2017. He would either be grabbing urine samples and trying to escape. Another time, he w as going into female patient's room and was not redirectable. He has been involved in taking chairs and throwing chairs. Another time, he kic ked the door that came off the hinges and ran down the torres. Due to the par anoia plus these acts of agitation and violence, we did file on the patie nt. We are granted the OPC. Eventually the patient became less paranoid. The patient was med-compliant. Family visited on a regular basis. Family confir med that he has a history of acting out, destroying property when he becomes mad. He is regretful after they say that all of the episodes that have occu rred on the unit are 100% his baseline. After this, staff realized that they c ould eventually redirect him and no more emergency medications were given at the request of the family. Some labs were ordered to rule out medical cause s. Neurology was called. They do not believe the presentation sounded lik e a neurologic pathology. They did not come and see the patient after we s poke and discussed that it was most likely not necessary at this time. The patient did show symptom improvement. He attended daily assessments. He a ttended group, but was distracted and would rarely participate. On the day of discharge, the patient was deemed suitable for discharge based on no SI, HI, AVH, paranoia, improved mood and affect. He was sleeping well w ith relief from the trazodone. His insight is poor, as he could not remember why or what caused the psychosis. He was regretful though of his mo re aggressive acts while on the unit. His judgment was fair to poor, but angelika adkins assured us that this was his baseline and they felt safe taking him home. The patient's affect became less blunted. His thought process became more or ganized and less limited. He was able to speak about his hobbies and his w ork and plans for work when he left. He became a little bit less agitated an d had fewer episodes of trying to escape. He was no longer paranoid on d ischarge. The patient's family visited him on a daily basis and stated t hat they thought he was back to his baseline as far as communication and cogn ition, that he was talking with them as normal, that he was no longer expre ssing any paranoid thoughts, that they felt safe taking him home and did not feel like him or they would be in danger. The patient plans to return home, continue his psychotropic medications and follow up with his outpatient ps ychiatrist. [facility] Discharge Summary MENTAL STATUS EXAMINATION ON DISCHARGE: The patient is well appearing and borderline field education coordinator perative with interview, as he continually asks to go home and will follow u s as we walk away from the interview, continuing to ask if he will go home. He does have good eye contact. No psychomotor retardation, activation, tics, tardive dyskinesia or tremor. His speech is regular rate, rhythm and v olume. His mood is "good". His affect is euthymic though still mildly const ricted. He denies any audiovisual hallucinations. His thought process is linear and goal directed though is still somewhat limited and focused on whether he was going to be able to leave or not. Thought content: The patie nt denies any SI, HI, paranoia. He does not think that the FBI is out to get him or that patients are out to get him. His insight is poor to fair as he is regretful of his violent acts. He states he will continue his med ications. His judgment is fair as he is able to stay more calm and not hav e any episodes of agitation overnight though he had some the day before. Cog nition: The patient is alert and oriented to person, place, time and ci rcumstance. Gait is normal. LABORATORY DATA: None relevant to discharge. DRUG REACTIONS AND INTERACTIONS: The patient did have some nausea and vomiting an d belly pain in response to Risperdal. DISCHARGE MEDICATIONS: 1. Zyprexa 10 mg p.o. q. 12 hours. 2. Vistaril 50 mg p.o. q. 6 hours p.r.n. for an xiety. 3. Trazodone 50 mg p.o. at bedtime p.r.n. for i nsomnia. DISCHARGE INSTRUCTIONS: Provided to the patient. PHYSICAL ACTIVITY: As tolerated. DRIVING RESTRICTIONS: Do not drive after taking sedating medications s uch as Zyprexa, Vistaril and trazodone. DIET RESTRICTIONS: None. FOLLOWUP: The patient has a followup appointment scheduled with [facility] in [place], [place] on 08/18/[address] Pappas. The patient has been given specific instructions on how to get to the appointment. [facility] Discharge Summary MENTAL STATUS EXAMINATION ON DISCHARGE: The patient is well appearing and borderline field education coordinator perative with interview, as he continually asks to go home and will follow u s as we walk away from the interview, continuing to ask if he will go home. He does have good eye contact. No psychomotor retardation, activation, tics, tardive dyskinesia or tremor. His speech is regular rate, rhythm and v olume. His mood is "good". His affect is euthymic though still mildly const ricted. He denies any audiovisual hallucinations. His thought process is linear and goal directed though is still somewhat limited and focused on whether he was going to be able to leave or not. Thought content: The patie nt denies any SI, HI, paranoia. He does not think that the FBI is out to get him or that patients are out to get him. His insight is poor to fair as he is regretful of his violent acts. He states he will continue his med ications. His judgment is fair as he is able to stay more calm and not hav e any episodes of agitation overnight though he had some the day before. Cog nition: The patient is alert and oriented to person, place, time and ci rcumstance. Gait is normal. LABORATORY DATA: None relevant to discharge. DRUG REACTIONS AND INTERACTIONS: The patient did have some nausea and vomiting an d belly pain in response to Risperdal. DISCHARGE MEDICATIONS: 1. Zyprexa 10 mg p.o. q. 12 hours. 2. Vistaril 50 mg p.o. q. 6 hours p.r.n. for an xiety. 3. Trazodone 50 mg p.o. at bedtime p.r.n. for i nsomnia. DISCHARGE INSTRUCTIONS: Provided to the patient. PHYSICAL ACTIVITY: As tolerated. DRIVING RESTRICTIONS: Do not drive after taking sedating medications s uch as Zyprexa, Vistaril and trazodone. DIET RESTRICTIONS: None. FOLLOWUP: The patient has a followup appointment scheduled with [facility] in [place], [place] on 08/18/[address] Pappas. The patient has been given specific instructions on how to get to the appointment. [facility] Discharge Summary DISPOSITION: Mr. Ivelisse Schumacher is currently stable and tolerati ng all his medications. We are discharging the patient to home with family. The patient's prognosis is poor, as he initially did not want to take his m edications and we are unsure if he will continue; however, if he is able to b e compliant with his psychotropic medications and consistent with his outpatient followup, he should do very well. He has been encouraged to a bstain from illicit drug use and to not discontinue any of his psychotropic m edications without the guidance of his outpatient psychiatrist. The pat fred has also met with his social service worker to obtain the appropriate followup paperwork. The importance of following through with this plan had been rev iewed with the patient, with the understanding that compliance would be cruci al to his recovery. He has been given the [facility] crisis hotline number and information about [facility] if he wishes to obtain therapy. MD Adina Knutson MD LK/SABA TD: 08/13/2017 21:44 CC:Adina Goodrich MD Electronically Authenticated and Edited by: Deb Bianchi MD On 08/16/2017 03:31 PM RADIOLOGIST CHIEF OF BREAST IMAGING [facility] Discharge Summary DISPOSITION: Mr. Ivelisse Schumacher is currently stable and tolerati ng all his medications. We are discharging the patient to home with family. The patient's prognosis is poor, as he initially did not want to take his m edications and we are unsure if he will continue; however, if he is able to b e compliant with his psychotropic medications and consistent with his outpatient followup, he should do very well. He has been encouraged to a bstain from illicit drug use and to not discontinue any of his psychotropic m edications without the guidance of his outpatient psychiatrist. The pat ient has also met with his social service worker to obtain the appropriate followup paperwork. The importance of following through with this plan had been rev iewed with the patient, with the understanding that compliance would be cruci al to his recovery. He has been given the [facility] crisis hotline number and information about [facility] if he wishes to obtain therapy. MD Adina Knutson MD LK/SABA TD: 08/13/2017 21:44 CC:Adina Goodrich MD Electronically Authenticated and Edited by: Deb Bianchi MD On 08/16/2017 03:31 PM RADIOLOGIST CHIEF OF BREAST IMAGING Electronically Authenticated by: Adina Goodrich MD On 09/08/2017 05:53 PM RADIOLOGIST CHIEF OF BREAST IMAGING 2017-09-08 17:53:18-00:00 [facility] Psych Eval PATIENT NAME: IVELISSE SCHUMACHER PHYSICIAN: Deb Bianchi MD Admitted: MR NUMBER: [id number] DISCHARGED: Psych Eval Patient Name: IVELISSE SCHUMACHER Date of Service: Date of : 1990 Clinician: eDb Bianchi MD User Field 1: J Encounter Visit: [facility] User Field 3: J Referring Adina Goodrich MD Clinician: ATTENDING PHYSICIAN: Adina Goodrich MD. The patient was admitted on 08/05/2017 to the in take and 08/06/2017 to the inpatient psych floor. INFORMANTS: Patient, the patient's family including the sist er-in-law and his mother as well as an EAD. CHIEF COMPLAINT: Per EAD, delusional, paranoid activity, behavior escalating to verbal aggression. Thinks Tate and dzaouh-ly-sis wants to shoot and stab him. HISTORY OF PRESENT ILLNESS: Ivelisse Schumacher is a 26-year-old male with no past psychiatric history presenting for a 5-day history of paranoid delus ions, confusion, labile mood, and verbal aggression in the context of psychoso cial stressors (his left him 2 weeks ago and has been blocking any commun ication with her as well as his mother whom he lived for 1-2 weeks out of lost her home and has been living in a hotel). His UDS is negative x9. The patient was brought in by [facility]'s office and did not sign in voluntarily. On interview, the patient is positive for paranoid delusions stating "did I shoot someone?" The FBI is tapping my phone. He also asked if I was with immigration services and stated he was scared be cause of his illegal marriage with a woman from [place]. He is also positive fo r confusion, thinking that he infected someone. He is positive for labile m ood and moving from scared to irritable when talking about how he wanted to go home. When speaking with family, we got more of a timeline of events star ting at Thanksgiving. Family started to notice how he easily forgot things. S amber then when he talked on the phone with his mom he was more easily distra ctible and absent minded. However, he came home about 7-10 days ago and wa s healthy enough to make a trip to [place] on the Wednesday before [place], 3 days prior. Then on 08/02/2017, , the patient stated he may have used some acid at a friend's house though he said this was a joke qu ickly after saying that. On 08/03/2017, he showed up to his family's house. He was asking where his siblings were even though he knew they were in [facility]. He was down and crying and then became very aggressive and was l abile. He did not recognize his family including his xjwfch-ko-wgn and bernarda augustine. He believes that his ilxvzt-hw-wdq was wanting to pull a gun on him a nd became verbally aggressive, screaming and yelling and slamming c abinet doors. He also stated [facility] Psych Eval PATIENT NAME: IVELISSE SCHUMACHER PHYSICIAN: Deb Bianchi MD Admitted: MR NUMBER: [id number] DISCHARGED: Psych Eval Patient Name: IVELISSE SCHUMACHER Date of Service: Date of : 1990 Clinician: Deb Bianchi MD User Field 1: J Encounter Visit: [facility] User Field 3: J Referring Adina Goodrich MD Clinician: ATTENDING PHYSICIAN: Adina Goodrich MD. The patient was admitted on 08/05/2017 to the in take and 08/06/2017 to the inpatient psych floor. INFORMANTS: Patient, the patient's family including the sist er-in-law and his mother as well as an EAD. CHIEF COMPLAINT: Per EAD, delusional, paranoid activity, behavior escalating to verbal aggression. Thinks Tate and ktggyp-nx-[id number] wants to shoot and stab him. HISTORY OF PRESENT ILLNESS: Ivelisse Schumacher is a 26-year-old male with no past psychiatric history presenting for a 5-day history of paranoid delus ions, confusion, labile mood, and verbal aggression in the context of psychoso cial stressors (his left him 2 weeks ago and has been blocking any commun ication with her as well as his mother whom he lived for 1-2 weeks out of month lost her home and has been living in a hotel). His UDS is negative x9. The patient was brought in by [facility]'s office and did not sign in voluntarily. On interview, the patient is positive for paranoid delusions stating "did I shoot someone?" The FBI is tapping my phone. He also asked if I was with immigration services and stated he was scared be cause of his illegal marriage with a woman from [place]. He is also positive fo r confusion, thinking that he infected someone. He is positive for labile m ood and moving from scared to irritable when talking about how he wanted to go home. When speaking with family, we got more of a timeline of events star ting at [facility]. Family started to notice how he easily forgot things. S amber then when he talked on the phone with his mom he was more easily distra ctible and absent minded. However, he came home about 7-10 days ago and wa s healthy enough to make a trip to [place] on the Wednesday before , 3 days prior. Then on 08/02/2017, , the patient stated he may have used some acid at a friend's house though he said this was a joke qu ickly after saying that. On 08/03/2017, he showed up to his family's house. He was asking where his siblings were even though he knew they were in [facility]. He was down and crying and then became very aggressive and was l abile. He did not recognize his family including his noatbq-wa-iuk and bernarda r. He believes that his nsklrd-na-rep was wanting to pull a gun on him a nd became verbally aggressive, screaming and yelling and slamming c abinet doors. He also stated Patient Name: IVELISSE SCHUMACHER [id number] "I am going to , I don't want to and star maximo hitting himself on the head." He also stated "I had a meeting with pres yossi Roberson" and became very paranoid when the TV was on. The patient was rudolph en to [facility] on 08/03/[address] he got a CT of the head showing no acute changes. A UDS was not done at that time. He said he became agitate d. He went home and on 08/04/2017, he went back to the hospital and got a UDS that was negative at [facility]. Family states that nothing like this has ever happened before. Mom does state that in the last 2 months , he has been talking less with her and not paying as much attention to peo ple when they talked to him; however, his hygiene has been regular. He has be en taking care of himself and taking showers. He did not have an odor. On exam, his primary delusions are that I have g ot AIDS and STDs and I am dying. He thinks people are poisoning his food. He thinks that FBI has put a tap on his phone. He thinks that his sister-in -law is going to shoot him. He does state that he has a named Juanita from [place] and that he is afraid immigration services are here. It turns out that he does have a named Juanita; however, she is from [facility]. She does not have her papers and family believes that she him just to get citize nship and has disappeared from his life in the last 2 weeks and blocked [employer] communications. On psych review of systems, the patient denies a ny delusions saying all these things were just pranks. He refuses to sign in v oluntarily. He denies any depressive symptoms. Denies any history of yaniv . Denies any current manic symptoms. Denies any anxiety. Denies any PTSD sy mptoms. Denies any AVH, suicidal ideations or homicidal ideations. PAST PSYCHIATRIC HISTORY: PAST DIAGNOSES: None. PSYCHIATRIST: None. THERAPIST: None. CURRENT PSYCHOTROPIC MEDICATIONS: None. PAST MEDICATION TRIALS: None. HOSPITALIZATIONS: None. Patient Name: IVELISSE SCHUMACHER [id number] "I am going to , I don't want to and star maximo hitting himself on the head." He also stated "I had a meeting with pres yossi Roberson" and became very paranoid when the TV was on. The patient was rudolph en to [facility] on 08/03/[address] where he got a CT of the head showing no acute changes. A UDS was not done at that time. He said he became agitate d. He went home and on 08/04/2017, he went back to the hospital and got a UDS that was negative at [facility]. Family states that nothing like this has ever happened before. Mom does state that in the last 2 months , he has been talking less with her and not paying as much attention to peo ple when they talked to him; however, his hygiene has been regular. He has be en taking care of himself and taking showers. He did not have an odor. On exam, his primary delusions are that I have g ot AIDS and STDs and I am dying. He thinks people are poisoning his food. He thinks that FBI has put a tap on his phone. He thinks that his sister-in -law is going to shoot him. He does state that he has a named Juanita from [place] and that he is afraid immigration services are here. It turns out that he does have a named Juanita; however, she is from [facility]. She does not have her papers and family believes that she him just to get citize nship and has disappeared from his life in the last 2 weeks and blocked al [employer] communications. On psych review of systems, the patient denies a ny delusions saying all these things were just pranks. He refuses to sign in v oluntarily. He denies any depressive symptoms. Denies any history of yaniv . Denies any current manic symptoms. Denies any anxiety. Denies any PTSD sy mptoms. Denies any AVH, suicidal ideations or homicidal ideations. PAST PSYCHIATRIC HISTORY: PAST DIAGNOSES: None. PSYCHIATRIST: None. THERAPIST: None. CURRENT PSYCHOTROPIC MEDICATIONS: None. PAST MEDICATION TRIALS: None. HOSPITALIZATIONS: None. Patient Name: IVELISSE SCHUMACHER [id number] SUICIDE ATTEMPTS: None. SUBSTANCE USE: Alcohol. He does socially a drink or 2 a week. T lucien, denies. Illicit drugs: He states did MDMA in May 2017. His l ast LSD use may have been on 08/02/2017, as he mentioned this to mother. T he patient denies any other prescription or illicit drug use. PSYCHIATRIC FAMILY HISTORY: None. 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 PAST SURGICAL HISTORY: Appendectomy at 9 years old. HOME MEDICATIONS: None. ALLERGIES: NO KNOWN DRUG ALLERGIES. SOCIAL HISTORY: Recent stressors include his mother whom he live s with 1 to 2 weeks out of the year, lost her home and now they are living in a hotel. He also had a , who recently left him and blocked all comm unication with him. He believes she him just to get residency a s she is from [facility] and does not have papers. Household, he lives in [facility] that is where his ivy job is based out of. However, when he i s off which is usually 1-2 weeks out of the month, he lives with his mother in a hotel at [place] as they recently lost their house. He has a lot of social support in the area including his mother and his dgleme-jb-swa. 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 LEGAL HISTORY: None. EDUCATION: Highest level is high school. REVIEW OF SYSTEMS: Patient Name: IVELISSE SCHUMACHER [id number] SUICIDE ATTEMPTS: None. SUBSTANCE USE: Alcohol. He does socially a drink or 2 a week. T lucien, denies. Illicit drugs: He states did MDMA in May 2017. His l ast LSD use may have been on 08/02/2017, as he mentioned this to mother. T he patient denies any other prescription or illicit drug use. PSYCHIATRIC FAMILY HISTORY: None. 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 PAST SURGICAL HISTORY: Appendectomy at 9 years old. HOME MEDICATIONS: None. ALLERGIES: NO KNOWN DRUG ALLERGIES. SOCIAL HISTORY: Recent stressors include his mother whom he live s with 1 to 2 weeks out of the year, lost her home and now they are living in a hotel. He also had a , who recently left him and blocked all comm unication with him. He believes she him just to get residency a s she is from [place] and does not have papers. Household, he lives in [facility] [place] that is where his ivy job is based out of. However, when he i s off which is usually 1-2 weeks out of the month, he lives with his mother in a hotel at [place] as they recently lost their house. He has a lot of social support in the area including his mother and his zqyzop-xr-blv. 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 LEGAL HISTORY: None. EDUCATION: Highest level is high school. REVIEW OF SYSTEMS: Patient Name: IVELISSE SCHUMACHER [id number] GENERAL: Denies. HEENT: Has congestion and cough for the last 3 d ays. CARDIOVASCULAR: Denies. RESPIRATORY: Denies. GASTROINTESTINAL: Denies. GENITOURINARY: Denies. MUSCULOSKELETAL: Has left-sided weakness since and hand contracture of his left hand. NEUROLOGIC: See musculoskeletal above. ENDOCRINE: Denies. SKIN: Denies. PHYSICAL EXAMINATION: VITAL SIGNS: Temperature 98.1, pulse 113, respir atory rate 18, blood pressure 123/85. MENTAL STATUS EXAMINATION ON ADMISSION: He is a disheveled male who is uncoope rative with the interview and easily irritable. He states he does not want to be here. His speech is regular rate and rhythm and volume most of the t marsha, but can become mumbled and pressured when he gets irritable. Mood "good , okay." Affect is constricted, blunted even. Perception, denies an y audiovisual hallucinations, is positive for paranoid delusio ns and other delusions concerning him having STDs, being to a w rajwinder from [place]. Thought content denies any SI or HI. Thought process is disorganized and tangential. Insight is poor. Judgment is poor as he believe s nothing is wrong and wants to leave. His gait is normal. Cognition, he is a lert and oriented x4. His abstraction, recall, memory and concentration ar e grossly intact. He has appropriate fund of knowledge per education leve l. LABORATORIES: CBC within normal limits. CMP: Sodium 133, low p otassium 3.8, chloride 96, low carbon dioxide 26. BUN 10, creatinine 0.9, b lood glucose 88. UDS negative x9. Urine alcohol undetectable. UA posi tive for ketones, positive for occult blood. He did have a CT head at [facility], which was within normal limits per family. His UDS on 05/10 was negative x9 at outside hospital. TSH 1.3. RPR nonreactive. Lipi d profile within normal limits except for HDL 39, low. ASSESSMENT: Ivelisse Schumacher is a 26-year-old male with no past psychiatric history presenting for a 5-day history of paranoid delus ions, confusion, labile mood and verbal aggression in the context of psychoso cial stressors including his leaving him and his mother with whom he shahram es losing her house. His UDS is negative x9. His CT head was unremarkable. Radha lockett does state a period of some prodromal symptoms and schizophrenia includ ing memory problems since , being less social and distractible during interpersonal Patient Name: IVELISSE SCHUMACHER [id number] GENERAL: Denies. HEENT: Has congestion and cough for the last 3 d ays. CARDIOVASCULAR: Denies. RESPIRATORY: Denies. GASTROINTESTINAL: Denies. GENITOURINARY: Denies. MUSCULOSKELETAL: Has left-sided weakness since and hand contracture of his left hand. NEUROLOGIC: See musculoskeletal above. ENDOCRINE: Denies. SKIN: Denies. PHYSICAL EXAMINATION: VITAL SIGNS: Temperature 98.1, pulse 113, respir atory rate 18, blood pressure 123/85. MENTAL STATUS EXAMINATION ON ADMISSION: He is a disheveled male who is uncoope rative with the interview and easily irritable. He states he does not want to be here. His speech is regular rate and rhythm and volume most of the t marsha, but can become mumbled and pressured when he gets irritable. Mood "good , okay." Affect is constricted, blunted even. Perception, denies an y audiovisual hallucinations, is positive for paranoid delusio ns and other delusions concerning him having STDs, being to a w rajwinder from [place]. Thought content denies any SI or HI. Thought process is disorganized and tangential. Insight is poor. Judgment is poor as he believe s nothing is wrong and wants to leave. His gait is normal. Cognition, he is a lert and oriented x4. His abstraction, recall, memory and concentration ar e grossly intact. He has appropriate fund of knowledge per education leve l. LABORATORIES: CBC within normal limits. CMP: Sodium 133, low p otassium 3.8, chloride 96, low carbon dioxide 26. BUN 10, creatinine 0.9, b lood glucose 88. UDS negative x9. Urine alcohol undetectable. UA posi tive for ketones, positive for occult blood. He did have a CT head at [facility], which was within normal limits per family. His UDS on 05/10 was negative x9 at outside hospital. TSH 1.3. RPR nonreactive. Lipi d profile within normal limits except for HDL 39, low. ASSESSMENT: Ivelisse Schumacher is a 26-year-old male with no past psychiatric history presenting for a 5-day history of paranoid delus ions, confusion, labile mood and verbal aggression in the context of psychoso cial stressors including his leaving him and his mother with whom he shahram es losing her house. His UDS is negative x9. His CT head was unremarkable. Radha lockett does state a period of some prodromal symptoms and schizophrenia includ ing memory problems since [place], being less social and distractible during interpersonal Patient Name: IVELISSE SCHUMACHER [id number] interactions. However, his hygiene has remained intact. He takes care of himself. He is positive for paranoid delusions o f the FBI tapping his phone, him having AIDS and STDs and thinking that he is going to , people poisoning his food, his sister going to kill him . He denies any audio or visual hallucinations currently and does not see m like he is internally responding. He does have disorganized thought an d disorganized behavior as he will go into other patient's room and lie on the bed and refuse to move when staff tries to redirect. He also tried to t surendra the urine sample out of the nurse's hand and had to be ordered emergency medications for this. Due the acute onset of psychosis w/ no prior pas t psych history, on our differential we are considering brief psychotic disorder, substance induced psychotic disorder, schizophreniform disorder an d psychotic disorder due to another medical condition. This is most likely b rief psychotic disorder given the temporal relationship of the onset of stressors and symptoms. Though UDS is negative for 9 substances, he has a questionable history of recent drug use including LSD and MJ that ma y have been lace with unknown substances. Therefore a substance induced psychotic disorder can not b e definitively ruled out at this time. Paranoid delusions of FBI taping phon e and family members out to hurt him lasting only 5 days does not meet crite henny for Schizophreniform at this time. If symptoms progress and persist long er than one month, this diagnosis will need to be reconsidered. Given hi s unremarkable CBC, CMP, TSH, RPR, UA and CT head, SWING SAW OPERATOR infection, neurosyphili s, brain tumor, metabolic abnormalities, nutritional deficiencies and thyroid disorders are less likely. 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 Will order HIV screening test, phosphate levels and ceruloplasmin to rule out HIV, parathyroid issues and Deven's di sease. 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 AXIS II: None. AXIS III: Brain injury at 16 months with residua l left-sided weakness and left hand contracture. AXIS IV: Lives with mother in [place] in a hotel as they recently lost their house, has supportive family in the area. 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 Legal history none. Highest educat ion level, high school. Family members include Alyssa Cerda, his sis ter-in-law, her number is [phone]. His mother is Ann Schumacher, her n umber is [phone] from [facility]. She prefers that we speak with sister-i n-law as she states that her level of [place] can make it hard to communicate . PLAN: Ivelisse Schumacher will be admitted to Dr. Goodrich's serv ice on the [facility] Inpatient Unit and placed on suicide, elopement, standard PICU precautions, and unit restriction. He will be started on Risp erdal 2 mg p.o. at bedtime for his diagnosis of psychosis of unknown origin as of now. He will also be started on Vistaril 50 mg p.o. q. 6 hours p.r.n. for anxiety and Trazodone 50 mg p.o. at bedtime p.r.n. for insomnia. Internal Medicine has been consulted for current medical needs. He will be monitored daily while in the unit. We plan to d ischarge to home with family. He will be encouraged to attend all group thera py sessions to participate in his treatment, to bring any concerns to the atte ntion of the treatment team. Deb Bianchi MD Patient Name: IVELISSE SCHUMACHER [id number] interactions. However, his hygiene has remained intact. He takes care of himself. He is positive for paranoid delusions o f the FBI tapping his phone, him having AIDS and STDs and thinking that he is going to , people poisoning his food, his sister going to kill him . He denies any audio or visual hallucinations currently and does not see m like he is internally responding. He does have disorganized thought an d disorganized behavior as he will go into other patient's room and lie on the bed and refuse to move when staff tries to redirect. He also tried to t surendra the urine sample out of the nurse's hand and had to be ordered emergency medications for this. Due the acute onset of psychosis w/ no prior pas t psych history, on our differential we are considering brief psychotic disorder, substance induced psychotic disorder, schizophreniform disorder an d psychotic disorder due to another medical condition. This is most likely b rief psychotic disorder given the temporal relationship of the onset of stressors and symptoms. Though UDS is negative for 9 substances, he has a questionable history of recent drug use including LSD and MJ that ma y have been lace with unknown substances. Therefore a substance induced psychotic disorder can not b e definitively ruled out at this time. Paranoid delusions of FBI taping phon e and family members out to hurt him lasting only 5 days does not meet crite henny for Schizophreniform at this time. If symptoms progress and persist long er than one month, this diagnosis will need to be reconsidered. Given hi s unremarkable CBC, CMP, TSH, RPR, UA and CT head, SWING SAW OPERATOR infection, neurosyphili s, brain tumor, metabolic abnormalities, nutritional deficiencies and thyroid disorders are less likely. 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 Will order HIV screening test, phosphate levels and ceruloplasmin to rule out HIV, parathyroid issues and Deven's di sease. DIAGNOSTIC IMPRESSION: AXIS I: Brief psychotic disorder with marked str essor versus substance-induced psychotic disorder versus a pr odromal phase of schizophrenia. AXIS II: None. AXIS III: Brain injury at 16 months with residua l left-sided weakness and left hand contracture. AXIS IV: Lives with mother in [place] in a hotel as they recently lost their house, has supportive family in the area. 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 Legal history none. Highest educat ion level, high school. Family members include Alyssa Cerda, his sis ter-in-law, her number is [phone]. His mother is Ann Schumacher, her n umber is [phone] from [facility]. She prefers that we speak with sister-i n-law as she states that her level of [place] can make it hard to communicate . PLAN: Ivelisse Schumacher will be admitted to Dr. Goodrich's serv ice on the [facility] Inpatient Unit and placed on suicide, elopement, standard PICU precautions, and unit restriction. He will be started on Risp erdal 2 mg p.o. at bedtime for his diagnosis of psychosis of unknown origin as of now. He will also be started on Vistaril 50 mg p.o. q. 6 hours p.r.n. for anxiety and Trazodone 50 mg p.o. at bedtime p.r.n. for insomnia. Internal Medicine has been consulted for current medical needs. He will be monitored daily while in the unit. We plan to di scharge to home with family. He will be encouraged to attend all group thera py sessions to participate in his treatment, to bring any concerns to the atte ntion of the treatment team. MD Adina Knutson MD Michael M. Stone, MD Patient Name: IVELISSE SCHUMACHER [id number] Date Dictated: 08/07/2017 Date 08/07/2017 Transcribed: CARLOS/CADEN/LAKISHA cc:Adina Goodrich MD Edited by: Deb Bianchi MD On 08/10/2017 03:03 PM RADIOLOGIST CHIEF OF BREAST IMAGING Electronically Authenticated and Edited by: Deb Bianchi MD On 08/16/2017 04:36 PM RADIOLOGIST CHIEF OF BREAST IMAGING Patient Name: IVELISSE SCHUMACHER [id number] Date Dictated: 08/07/2017 Date 08/07/2017 Transcribed: WANDA/LAKISHA cc:Adina Goodrich MD Edited by: Deb Bianchi MD On 08/10/2017 03:03 PM RADIOLOGIST CHIEF OF BREAST IMAGING Electronically Authenticated and Edited by: Deb Bianchi MD On 08/16/2017 04:36 PM RADIOLOGIST CHIEF OF BREAST IMAGING Electronically Authenticated by: Adina Goodrich MD On 09/08/2017 05:53 PM RADIOLOGIST CHIEF OF BREAST IMAGING 2017-08-31 21:43:11-00:00 [facility] History and Physical PATIENT NAME: IVELISSE SCHUMACHER PHYSICIAN: Shar ibarra MD Admitted: MR NUMBER: [id number] DISCHARGED: DATE OF SERVICE: 08/07/2017 TIME SEEN: Approximately around 1355. REASON FOR EVALUATION: Medical management. REQUESTING PHYSICIAN: Adina Goodrich MD DICTATING PHYSICIAN: Shar Ambriz MD. HISTORY OF PRESENT ILLNESS: This is a 26-year-old male, who has no known pas t medical problems; however, there is a document here with the patient's sist er-in-law and mother with a history. 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 He has not had any surgeries in the past, either. It ap peared that around Thanksgiving time, he started to have issues wit h memory. That was a noticeable by family. 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 However, the last 5 days, it appears that the patient had become even more as he was starting to appear confused and becoming more mood labile. Apparent ly, he did recognize some of the patient's family members. He was becoming mo re aggressive with family members. He was apparently very paranoid about d sonali and apparently meeting President Karol. He had delusions of this. Appar ently, he was evaluated at an outlying facility twice and was released home . He apparently had a negative urine drug screen during one of his hos pital ER stays. Apparently, this is a new issue for him. Currently, he has n ot been hospitalized, because of his decompensation he was brought int o our hospital under psychiatrist care here. Currently, he is very much slow with his thought process, somewhat confused. His latency speech was quite noted and his thoug ht process is very altered. He was not engaging during my interview with him . Apparently, he has been fixated on having SCDs tested for, however, he c ould not endorse any sort of complex history taking with me. REVIEW OF SYSTEMS: Other than what is documented limited secondary to his presumed psychotic state, otherwise, limited 10-point review of sys tems asked negative. HOME MEDICATIONS: Apparently none. PAST MEDICAL HISTORY: As stated above. PAST SURGICAL HISTORY: Patient Name: IVELISSE SCHUMACHER [id number] None. ALLERGIES: NONE KNOWN. SOCIAL HISTORY: Apparently, he smokes cigarettes. Denies alcohol use. According to this telephone note in the chart he may be using drug s, though his urine drug screen was negative when he came in. There may b e concern that she may be to a woman from another country, he has had a convenience with. FAMILY HISTORY: Unknown as the patient is unable to give me this history. PHYSICAL EXAMINATION: VITAL SIGNS: Temperature 99.9 degrees Fahrenheit , heart rate 120, respiratory rate 20, blood pressure 123/78, and pulse ox 98% on room air. GENERAL: This patient is lying in bed, appears c omfortable, in no acute distress, though appears to be internally preocc upied and engaging with my interview with him. HEENT: Mucous membranes are moist. Normocephalic , atraumatic. EOMI. NECK: Midline supple. No adenopathy. No JVD. CHEST: Clear to auscultation bilaterally. No whe ezes, rhonchi or rales. CARDIOVASCULAR SYSTEM: S1, S2 audible. Rhythm is regular. No gallops. ABDOMEN: Soft, nontender, normoactive bowel soun ds, nondistended. GENITOURINARY: Deferred. BACK: No spinal or paraspinal tenderness. No CVA tenderness. Good range of motion, otherwise: EXTREMITIES: No cyanosis, clubbing, or edema. Di stal extremities are warm. NEUROLOGIC: Limited secondary to his confused st ate, however, he moves all 4 extremities. His tongue is midline, he appears t o have a contracted left upper extremity and his left wrist is preferenti ally hyperflexed, somewhat contracted. 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 LABORATORY DATA: His urine drug screen was negative here. No alco hol was picked up in the system. White count 7.7, hemoglobin 16.6, platelet count 184,000. Sodium 133, chloride of 96, BUN of 10, creatinin e 0.9. LDL calculated at 124. RPR nonreactive. Urinalys is was negative for infection. ASSESSMENT AND PLAN: Patient Name: IVELISSE SCHUMACHER [id number] This is a 26-year-old male, who appears to have from what it seems like a new onset psychosis of unclear etiology. He may be d eveloping a new organic mood disorder, which is being worked up by the psychi atric service. At this point, he is not manifesting much in the way of any sort of neurologic signs to suggest any sort of neurodegenerative disorde r at this point, his left upper extremity findings appear to be chronic fr om his history of a traumatic brain injury. At this point, we will defer treatment to the ps ychiatric service. If he is able to give us any more relevant information an d if there are any new findings from internal medicine standpoin, mei langley feel free to give us a call and we will be happy to reevaluate this patient. MD ILIANA Garcia/MIK TD: 08/07/2017 17:40 Electronically Authenticated by: Shar Ambriz MD On 08/11/2017 11:34 AM RADIOLOGIST CHIEF OF BREAST IMAGING
[2023-04-20] MEDS ORDERED: NA CHLORIDE 0.9% 1,000 ML ONE (11:32)
[2023-04-20 11:36] LABS: Absolute Lymphocytes (CBC) 2.6 K/uL (0.7-4.9); Hematocrit 48.1 % (39.6-49.0); Lymphocytes % 25.9 % (15.3-44.8); MCV 87.3 fL (80-100); MPV 8.6 fL (7.6-11.3); Platelets 192 thou/uL (152-406); RBC Red Blood Cell Count 5.51 M/uL (4.33-5.43)
[2023-04-20 11:47] LABS: Protime INR 1.04
[2023-04-20 12:04] LABS: ALT/SGPT 42 U/L (16-61); AST/SGOT 21 U/L (15-37); Albumin 3.6 g/dL (3.4-5.0); Alkaline Phosphatase 89 U/L (45-117); BUN Blood Urea Nitrogen 13 mg/dL (7-18); Bicarbonate 23 mEq/L (21-32); Bilirubin Direct 0.2 mg/dL (0-0.2); Bilirubin Indirect, Calculated 0.4 mg/dL (0.2-0.8); Bilirubin Total 0.6 mg/dL (0.2-1.0); Glomerular Filtration Rate 119 ml/min (=/>90); Glucose Level 127 mg/dL (74-106); Potassium 3.6 mEq/L (3.5-5.1); Protein, Total 7.1 g/dL (6.4-8.2); Sodium Level 136 mEq/L (136-145)
[2023-04-20 12:19] LABS: Specific Gravity 1.014 (1.005-1.030); Urine Bilirubin NEGATIVE (Negative); Urine Blood Negative (Negative); Urine Clarity Clear (Clear); Urine Color Light-Yellow (Yellow); Urine Glucose NEGATIVE (Negative); Urine Protein NEGATIVE (Negative); Urine Urobilinogen Normal (Normal); Urine pH 5.5 (5.0-7.0)
[2023-04-20] MEDS ORDERED: WATER FOR INJ,STERILE 10 ML ONE (12:27)
[2023-04-20] MEDS ORDERED: ZIPRASIDONE MESYLA 20 MG/VIAL IM ONE (12:27)
[2023-04-20 12:28] LABS: Barbiturates NEGATIVE (NEGATIVE); Benzodiazepines NEGATIVE (NEGATIVE); Cocaine NEGATIVE (NEGATIVE); METHAMPHETAM NEGATIVE (NEGATIVE); Methadone NEGATIVE (NEGATIVE); Opiates NEGATIVE (NEGATIVE); Phencyclidine NEGATIVE (NEGATIVE); THC Cannibis NEGATIVE (NEGATIVE)
--- NOTE | 2023-04-20 12:49 | ER ---
Nurse's Notes [facility] Name: Brad Recinos Jr Age: 32 yrs Sex: Male : 1990 Arrival Date: 04/20/2023 Time: 11:05 Bed 6 Private MD: Diagnosis: Acute psychosis, insomnia Presentation: 04/20 11:13 Chief complaint: EMS states: "pt took Rx dose of Seroquel, 1 pill 300 mg, and pt became mb9 lethargic. Pt has been on medication for 2 months. BGL 117.". Coronavirus screen: Vaccine status: Patient reports being unvaccinated. Ebola Screen: No symptoms or risks identified at this time. Initial Sepsis Screen: Does the patient meet any 2 criteria? HR > 90 bpm. Does the patient have a suspected source of infection? No. Patient's initial sepsis screen is negative. Risk Assessment: Do you want to hurt yourself or someone else? Patient reports no desire to harm self or others. Onset of symptoms was April 20, 2023. 11:13 Acuity: ANABELLE 2 mb9 11:13 Method Of Arrival: EMS: [facility] mb9 Triage Assessment: 11:16 General: Appears in no apparent distress. Behavior is drowsy. Pain: Denies pain. Neuro: mb9 Santos Agitation-Sedation Scale (RASS): 0 - Alert and Calm Level of Consciousness is awake, obeys commands, lethargic, Oriented to person, place, time, situation, Appropriate for age. Cardiovascular: Heart tones S1 S2 present Patient's skin is warm and dry. Rhythm is sinus tachycardia. Respiratory: Airway is patent Respiratory effort is even, unlabored, Respiratory pattern is regular, symmetrical, Breath sounds are clear bilaterally. GI: Abdomen is round obese, Bowel sounds present X 4 quads. Abd is soft and non tender X 4 quads. : No signs and/or symptoms were reported regarding the genitourinary system. Derm: Skin is pink, warm \\T\\ dry. Musculoskeletal: Range of motion: intact in all extremities. 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 - Social history:: Smoking status: Patient reports the use of cigarette tobacco products, smokes one pack cigarettes per day. Screenin:17 [facility] ED Fall Risk Assessment (Adult) History of falling in the last 3 months, mb9 including since admission No falls in past 3 months (0 pts) Confusion or Disorientation No (0 pts) Intoxicated or Sedated No (0 pts) Impaired Gait No (0 pts) Mobility Assist Device Used No (0 pt) Altered Elimination No (0 pt) Score/Fall Risk Level 0 - 2 = Low Risk Oriented to surroundings, Maintained a safe environment, Educated pt \\T\\ family on fall prevention, incl call for assistance when getting out of bed. Abuse screen: Denies threats or abuse. Nutritional screening: No deficits noted. Tuberculosis screening: No symptoms or risk factors identified. Assessment: 12:14 Reassessment: No changes from previously documented assessment. Patient and/or family mb9 updated on plan of care and expected duration. Pain level reassessed. Patient is alert, oriented x 3, equal unlabored respirations, skin warm/dry/pink. 12:20 Reassessment: Mom and mental health deputy at [facility]. mb9 Overdose: 11:17 [place] Suicide Severity Screening: "In the past month, have you wished you were mb9 or wished you could go to sleep and not wake up?" Patient responds "no." "In the past month, have you actually had any thoughts of killing yourself?" Patient responds "no." "In your lifetime, have you ever done anything, started to do anything, or prepared to do anything to end your life?" Patient responds "no.". Vital Signs: 11:13 BP 131 / 91; Pulse 123; Resp 18; Temp 98.3(O); Pulse Ox 100% on R/A; Weight 151.5 kg; mb9 Height 5 ft. 11 in. ; Pain 0/10; 12:14 BP 126 / 64; Pulse 102; Resp 16; Pulse Ox 100% on R/A; mb9 13:01 BP 122 / 74; Pulse 94; Resp 18; Pulse Ox 100% on R/A; mb9 11:13 Body Mass Index 46.58 (151.50 kg, 180.34 cm) mb9 11:13 Pain Scale: Adult mb9 ED Course: 11:07 Patient arrived in ED. jl7 11:10 Barbara Beebe MD is Attending Physician. sp3 11:15 Triage completed. mb9 11:15 Arm band placed on. mb9 11:17 Placed in gown. Bed in low position. Call light in reach. Side rails up X 1. Client mb9 placed on continuous cardiac and pulse oximetry monitoring. NIBP monitoring applied. residential monitor on. 11:17 EKG done, by ED staff, reviewed by Barbara Beebe MD. Inserted saline lock: 20 gauge in mb9 right antecubital area, using aseptic technique. 11:24 Juanita Phillips, RN is Primary Nurse. mb9 11:24 Acetaminophen Sent. mb9 11:24 Basic Metabolic Panel Sent. mb9 11:24 CBC with Diff Sent. mb9 11:24 ETOH Level Sent. mb9 11:24 Hepatic Function Sent. mb9 11:24 Ptt, Activated Sent. mb9 11:24 PT-INR Sent. mb9 11:24 Salicylate Sent. mb9 12:10 Straight cath inserted, using sterile technique, 16 Fr. Returned clear yellow urine. mb9 Patient tolerated well. 12:13 Urinalysis w/ reflexes Sent. mb9 12:14 Urine Drug Screen Sent. mb9 13:02 No provider procedures requiring assistance completed. IV discontinued, intact, mb9 bleeding controlled, No redness/swelling at site. Pressure dressing applied. Administered Medications: 11:24 Drug: NS 0.9% IV 1000 ml Route: IV; Rate: 1 bolus; Site: right antecubital; mb9 12:22 Drug: Geodon IM 20 mg Route: IM; Site: right deltoid; mb9 Medication: 11:17 VIS not applicable for this client. mb9 Outcome: 12:49 Discharge ordered by . sp3 13:02 Discharged to Law Enforcement mb9 13:02 Condition: stable 13:02 Discharge instructions given to patient, family, Instructed on discharge instructions, follow up and referral plans. Demonstrated understanding of follow-up care. 13:02 Patient left the ED. mb9 Signatures: Austin Wilkerson RN RN jl7 Barbara Beebe MD MD sp3 Juanita Phillips RN RN mb9 Corrections: (The following items were deleted from the chart) 12:22 12:14 BP 126 / 64; Pulse 118bpm; Resp 16bpm; Pulse Ox 100% RA; branden9 mb9
--- NOTE | 2023-04-20 12:49 | EDPHYS ---
Physician Documentation [facility] Name: Brad Recinos Jr Age: 32 yrs Sex: Male : 1990 Arrival Date: 04/20/2023 Time: 11:05 Bed 6 Private MD: ED Physician Barbara Beebe HPI: 04/20 12:42 This 32 yrs old Male presents to ER via EMS with complaints of hearing voices. sp3 12:42 . 32-year-old male with a history of psychosis currently on Seroquel presents to the ED sp3 for chief complaint "possible side effects of Seroquel" and insomnia. Patient has had multiple episodes of psychosis and psychiatric history in the past. He was recently discharged from local inpatient psychiatric facility. He is telling his mother that he can feel the demons from cheondoism and he wants to kill them. He came home and placed crossed on his mother's forehead and told her the demons were coming. She reported this to the police and the police got involved and brought him here. He is currently under NATE. He denies suicidality or homicidality but does endorse psychosis and hearing voices. No other somatic complaints other than insomnia. He denies any pain, headache, trauma, chest pain, shortness of breath, abdominal pain, nausea, vomiting, diarrhea, syncope, neurological defect, or any other signs or symptoms on ROS at this time. Due to his psychosis however, history physical and ROS is somewhat limited.. 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 - Social history:: Smoking status: Patient reports the use of cigarette tobacco products, smokes one pack cigarettes per day. ROS: 12:45 Constitutional: Negative for fever, chills, and weight loss, Eyes: Negative for injury, sp3 pain, redness, and discharge, Neck: Negative for injury, pain, and swelling, Respiratory: Negative for shortness of breath, cough, wheezing, and pleuritic chest pain, Abdomen/GI: Negative for abdominal pain, nausea, vomiting, diarrhea, and constipation, Back: Negative for injury and pain, MS/Extremity: Negative for injury and deformity, Skin: Negative for injury, rash, and discoloration, Neuro: Negative for headache, weakness, numbness, tingling, and seizure, Allergy/Immunology: Negative for hives, rash, and allergies, Endocrine: Negative for neck swelling, polydipsia, polyuria, polyphagia, and marked weight changes, Hematologic/Lymphatic: Negative for swollen nodes, abnormal bleeding, and unusual bruising. 12:45 All other systems are negative. Exam: 12:45 Constitutional: This is a well developed, well nourished patient who is awake, alert, sp3 and in no acute distress. Head/Face: Normocephalic, atraumatic. ENT: Nares patent. No nasal discharge, no septal abnormalities noted. External auditory canals are clear. Oropharynx with no redness, swelling, or masses, exudates, or evidence of obstruction, uvula midline. Mucous membranes moist. Neck: Trachea midline, no thyromegaly or masses palpated, and no cervical lymphadenopathy. Supple, full range of motion without nuchal rigidity, or vertebral point tenderness. No Meningismus. Chest/axilla: Normal chest wall appearance and motion. Nontender with no deformity. No lesions are appreciated. Respiratory: Lungs have equal breath sounds bilaterally, clear to auscultation and percussion. No rales, rhonchi or wheezes noted. No increased work of breathing, no retractions or nasal flaring. Abdomen/GI: Soft, non-tender, with normal bowel sounds. No distension or tympany. No guarding or rebound. No evidence of tenderness throughout. Back: No spinal tenderness. No costovertebral tenderness. Full range of motion. Skin: Warm, dry with normal turgor. Normal color with no rashes, no lesions, and no evidence of cellulitis. MS/ Extremity: Pulses equal, no cyanosis. Neurovascular intact. Full, normal range of motion. Neuro: Awake and alert, GCS 15, oriented to person, place, time, and situation. Cranial nerves II-XII grossly intact. Motor strength 5/5 in all extremities. Sensory grossly intact. Cerebellar exam normal. Normal gait. 12:45 Eyes: Spontaneous nystagmus noted bilateral eyes.. 12:45 Cardiovascular: Initially tachycardic in the 120s to 130s. Patient appeared agitated and responding to internal stimuli.. Vital Signs: 11:13 BP 131 / 91; Pulse 123; Resp 18; Temp 98.3(O); Pulse Ox 100% on R/A; Weight 151.5 kg; mb9 Height 5 ft. 11 in. ; Pain 0/10; 12:14 BP 126 / 64; Pulse 102; Resp 16; Pulse Ox 100% on R/A; mb9 13:01 BP 122 / 74; Pulse 94; Resp 18; Pulse Ox 100% on R/A; mb9 11:13 Body Mass Index 46.58 (151.50 kg, 180.34 cm) mb9 11:13 Pain Scale: Adult mb9 MDM: 11:10 Patient medically screened. sp3 12:46 Data reviewed: vital signs, nurses notes, lab test result(s), EKG. ED course: sp3 32-year-old male with acute psychosis. Patient's tachycardia improved with Geodon 20 mg IM and he is now resting comfortably. Patient is medically clear with all laboratory values, urine drug screen, UA now within normal limits. Prior EKG before the Geodon demonstrated sinus tachycardia at 123 bpm with normal intervals, normal QRS, normal axis, normal ST/T-segment's without evidence of acute ischemia. Family patient is at overdose on his Seroquel and his symptoms are really due to psychosis and insomnia induced yaniv. Mental health deputy is here and he states he will be able to take patient to the inpatient psych facility now that he is medically clear.. 04/20 11:11 Order name: Acetaminophen; Complete Time: 12:41 [facility] 04/20 11:11 Order name: Basic Metabolic Panel; Complete Time: 12:41 [facility] 04/20 11:11 Order name: CBC with Diff; Complete Time: 12: [facility] 04/20 11:11 Order name: ETOH Level; Complete Time: 12: [facility] 04/20 11:11 Order name: Hepatic Function; Complete Time: 12:41 [facility] 04/20 11:11 Order name: PT-INR; Complete Time: 12: [facility] 04/20 11:11 Order name: Ptt, Activated; Complete Time: 12: [facility] 04/20 11:11 Order name: Salicylate; Complete Time: 12:41 sp3 04/20 11:11 Order name: Urinalysis w/ reflexes; Complete Time: 12:41 sp3 04/20 11:11 Order name: Urine Drug Screen; Complete Time: 12:41 sp3 04/20 11:11 Order name: EKG; Complete Time: 11:12 sp3 04/20 11:11 Order name: EKG - Nurse/Tech; Complete Time: 11:13 sp3 04/20 11:11 Order name: IV Saline Lock; Complete Time: 11:13 sp3 04/20 11:11 Order name: Labs collected and sent; Complete Time: 11: sp3 04/20 11:11 Order name: Suicide Screening ([place]); Complete Time: : sp3 04/20 11:11 Order name: Straight Cath: If pt cannot give sample in 30 mins; Complete Time: 11:36 sp3 Administered Medications: 11:24 Drug: NS 0.9% IV 1000 ml Route: IV; Rate: 1 bolus; Site: right antecubital; mb9 12:22 Drug: Geodon IM 20 mg Route: IM; Site: right deltoid; mb9 Disposition Summary: 04/20/23 12:49 Discharge Ordered Location: Law Enforcement sp3 Condition: Stable sp3 Diagnosis - Acute psychosis, insomnia sp3 Followup: sp3 - With: Private Physician - When: Today - Reason: Continuance of care Discharge Instructions: - Discharge Summary Sheet sp3 - Psychosis sp3 Forms: - Medication Reconciliation Form sp3 - Thank You Letter sp3 - Antibiotic Education sp3 - Prescription Opioid Use sp3 - Patient Portal Instructions sp3 - Leadership Thank You Letter sp3 Signatures: Dispatcher [employer] Barbara Holloway MD MD sp3 Juanita Phillips RN RN mb9
[2023-04-20 14:06] VITALS: TEMP 98.3; O2SAT 100
[2023-04-20 14:09] VITALS: BP 122/74
--- NOTE | 2023-04-21 14:58 | EKG ---
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
== END 2023-04-20 13:02 ==
LOC: ER 11:05
DX: F23 Brief psychotic disorder (principal); G47.00 Insomnia, unspecified
CPT/HCPCS: 36415; 51702; 80048; 80076; 80143; 80179; 80307; 81003; 82077; 85025; 85610; 85730; 93005; 96372; 99285; J3486; J7030

== ENCOUNTER 2023-05-25 10:09 | Emergency (ER) | payer SELFPAY ==
--- OUTSIDE RECORDS SUMMARY | 2023-05-25 10:22 | XMS REPORT | Continuity of Care Document ---
:1990 Author Organization [facility] t Address [address] [place] [address] Care Team Providers Name Role Phone PCP, PATIENT DOES NOT HAVE A Primary Care Physician Unavaila SHEILA Jimenez Attending Clinician Unavailable Sheila Alexandra DO Attending Clinician SUKHJINDER CORRALES Attending Clinician Unavailable SUKHJINDER CORRALES Attending Clinician Unavailable ADINA RYAN M.D., ADINA Ash M.D. Attending Clinician Unavailable ADINA RYAN M.D., ADINA Ash Admitting Clinician Lobo giang Payers Payer Name Policy Type Policy Number Effective Date Expiration Date S [facility] [place]ICA[place] PENDING PENDING 2023 00:00:00 Problems This patient has no known problems. Allergies, Adverse Reactions, Alerts Allergy Allergy Status Severity Reaction(s) Onset Inactive Treating Comm ents Source Name Type Date Date Clinician NO KNOWN Drug Active Univers ALLERGIE Class ity [facility] Social History Social Habit Start Date Stop Date Quantity Comments Source Sexual orientation [facility] Sex Assigned At [birth year] [facility] 00:00:00 00:00:00 [facility] Branch Smoking Status Start Date Stop Date Source Tobacco smoking consumption [facility] Medications Ordered Filled Start Stop Current Ordering Indication Dosage Frequency Signature Comments Components Source Medication Medication Date Date Medication? Clinician (SIG) Name Name maalox:diph 2023-1 2023- No 15mL 15 mL, Uni vers enhydrAMINE 005-21 Oral, ity of :lidocaine 20:15: 20:15 ONCE, 1 Binh as 2 % viscous 00 :00 dose, On Medi ramo 1:1:1 Fri Branch (FIRST-MOUT 05/21/23 [facility]) at 1515, oral Routine suspension 15 mL omeprazole 2022-08 Yes [id number] 40mg Take 1 U nivers 40 mg 0 capsule by ity of capsule 00:00: mouth in [place] 00 the Medical morning. Branch Vital Signs Vital Name Observation Time Observation Value Comments Source Systolic blood 2023-05-21 21:26:06 128 mm[Hg] Univer sity of [facility] Diastolic blood 2023-05-21 21:26:06 94 mm[Hg] Unive rsity of [facility] Heart rate 2023-05-21 21:26:06 86 /min [facility] Body temperature 2023-05-21 21:26:[address] [facility] Respiratory rate 2023-05-21 21:26:06 18 /min [facility] Oxygen saturation in 2023-05-21 21:26:06 100 /min [facility] Arterial blood by [facility] Pulse oximetry Branch Body height 2023-05-21 19:31:00 182.9 cm [facility] Body weight 2023-05-21 19:31:00 156.491 kg [facility] BMI 2023-05-21 19:31:00 46.79 kg/m2 [facility] Systolic blood 2023-05-21 16:40:00 128 mm[Hg] Univer sity of [facility] Diastolic blood 2023-05-21 16:40:00 95 mm[Hg] Unive rsity of [facility] Heart rate 2023-05-21 16:40:00 92 /min [facility] Body temperature 2023-05-21 16:40:00 37 Marcela [facility] Res[facility] rate 2023-05-21 16:40:00 18 /min [facility] Body height 2023-05-21 16:40:00 182.9 cm [facility] Body weight 2023-05-21 16:40:00 156.627 kg Universi ty of [facility] BMI 2023-05-21 16:40:00 46.83 kg/m2 Universi ty [facility] Oxygen saturation in 2023-05-21 16:40:00 100 /min [facility] blood by [facility] Pulse oximetry Branch Procedures Procedure Date / Time Performed Performing Clinician Sour e ASSIGNMENT OF BENEFITS 2023-05-21 20:39:33 Doctor Unassigned, No [facility] Name Medical Branch CONSENT/REFUSAL FOR 2023-05-21 19:14:42 Doctor Unassigned, No [facility] Name Medical Branch TREATMENT NOTICE OF PRIVACY 2023-05-21 16:34:41 Doctor Unassigned, No [facility] Name Medical Branch CONSENT/REFUSAL FOR 2023-05-21 16:30:50 Doctor Unassigned, No [facility] AND Name Medical Branch TREATMENT Encounters Start End Encounter Admission Attending Care Care Encounter Source Date/Time Date/Time Type Type Clinicians Facility Department ID 2023-05-21 2023-05-21 Emergency X KADY [facility] ERT [id number] Univers 14:33:00 16:29:00 SHEILA martinez [facility] 2023-05-21 2023-05-21 [facility] [id number] Univers 14:33:00 16:29:00 Sheila COLLADO [id number] ity [facility] [id number] [facility] [id number] [place] [address] Branch 2023-05-21 2023-05-21 Emergency X SUKHJINDER CORRALES [facility] ERT 1 [id number] Univers 11:40:00 12:58:00 SUKHJINDER CORRALES [facility] 2023-05-21 2023-05-21 Emergency Emily [facility] [id number] Univers 11:40:00 12:58:00 Sukhjinder COLLADO [id number] i ty [facility] [id number] [facility] [id number] [address] Results Test Description Test Time Test Comments Results Result Comments Source Ceruloplasmin 2017-08-17 08:36:00 Test Item Value Reference Range Interpretation Comme nts Ceruloplasmin (test code = 965789) 24.9 mg/dL 16.0-31.0 N Treponema Pallidum [id number] 22:05:00 Test Item Value Reference Range Interpretation Comments Treponemal Antibody IgG (test Non-reactive Non-reactive N code = TREPAB) [id number] 07:39:00 Test Item Value Reference Range Interpretation Comments Phosphorus (test code = PO4) 4.2 mg/dL 2.70-4.50 N Thyroid Stimulating Hormone (TSH)2017-08-07 07:51:00 Test Item Value Reference Range Interpretation Comments TSH (test code = TSH) 1.33 mIU/mL 0.270-4.200 N Lipid [id number] 07:46:00 Test Item Value Reference Range Interpretation Comments Cholesterol (test 177 mg/dL 0-200 N code = CHOL) Triglycerides (test 71 mg/dL 9-200 N code = TRIG) HDL (test code = 39 mg/dL 40-60 L HDL) Chol/HDL (test code 4.5 Ratio 0.0-5.0 N = CHOLPHDL) LDL, Calculated 124 0-130 N (NOTE)RISK O F HEART (test code = LDLC) DISEASEPu blished by [place] Heart AssociationAnal yte Optimal Boderli ne Increased RiskC HOL <200 200-239 >240TRI G <150 150-199 >200HDL Male: >60 <40HDL Fema le: >60 <50LDL <100 13 0-159 >160LDL NEAR OP [facility] IS 100-129 VLDL (test code = 14 mg/dL 5-40 N VLDL) LDL/HDL (test code = 3 LDLPHDL) RPR, [id number] 06:55:00 Test Item Value Reference Range Interpretation Comments RPR (test code = RPR) Non-Reactive Non-Reactive N [id number] 22:21:00 Test Item Value Reference Range Interpretation [...] g/dL 0.00-0.01 N code = ETOHU) Urinalysis [id number] 22:13:00 Test Item Value Reference Range Interpretation Comments Color (test code = Yellow Yellow,Straw,Pl N COLOR) yellow Clarity (test code = Clear Clear N CLAR) Specific [place] (test 1.019 1.001-1.035 N code = SPGR) [...] code = None /HPF BACT) Comprehensive Metabolic [id number] 20:50:00 Test Item Value Reference Range Interpretation [...] National Kidney Foundation,http ://nkd ep.nih.gov CBC with [id number] 20:36:00 Test Item Value Reference Range Interpretation [...] code = ALYMPH) 1.5 K/cumm 0.5-4.6 N [place] Abs (test code = AMONO) 0.7 K/cumm 0.0-1.2 N Eos Abs (test code = AEOS) 0.06 K/cumm 0.00-0.74 N Baso Abs (test code = ABASO) 0.0 K/cumm 0.00-0.21 N
--- NOTE | 2023-05-25 10:55 | RAD REPORT ---
EXAM DESCRIPTION: US - Abdomen Exam Limited - 05/25/2023 10:48 am CLINICAL HISTORY: ABD PAIN COMPARISON: Abdomen Exam Limited dated 04/01/2021 FINDINGS: The gallbladder demonstrates no gallstones. No pericholecystic fluid or gallbladder wall t hickening. The common bile duct is normal measuring 4 mm. The liver demonstrates no findings of intrahepatic biliary dilatation. IMPRESSION: Unremarkable examination.
[2023-05-25 11:55] LABS: Absolute Lymphocytes (CBC) 2.2 K/uL (0.7-4.9); Hematocrit 48.5 % (39.6-49.0); MCV 87.5 fL (80-100); MPV 8.5 fL (7.6-11.3); Platelets 196 thou/uL (152-406); RBC Red Blood Cell Count 5.55 M/uL (4.33-5.43)
[2023-05-25 12:06] LABS: Albumin 3.4 g/dL (3.4-5.0); Bilirubin Total 0.4 mg/dL (0.2-1.0); Potassium 4.5 mEq/L (3.5-5.1); Protein, Total 7.2 g/dL (6.4-8.2)
--- NOTE | 2023-05-25 13:05 | EDPHYS ---
Physician Documentation [facility] Name: Brad Recinos Jr Age: 32 yrs Sex: Male : 1990 Arrival Date: 05/25/2023 Time: : Bed 20 Private MD: ED Physician Jomar Haro HPI: 05/25 13:35 This 32 yrs old Male presents to ER via Ambulatory with complaints of Abdominal Pain. kb 13:35 The patient presents with abdominal pain in the upper abdomen. Onset: The kb symptoms/episode began/occurred this morning. The symptoms do not radiate. Associated signs and symptoms: Pertinent positives: nausea. The symptoms are described as constant. Modifying factors: The symptoms are alleviated by nothing, the symptoms are aggravated by nothing. Severity of pain: At its worst the pain was moderate in the emergency department the pain is unchanged. The patient has experienced similar episodes in the past. The patient has not recently seen a physician. Pt reports upper abd pain and nausea that started this morning. STates the last time this happened, he went [facility] and was diangosed with gastritis. States he hasn't followed up with GI yet. 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 - Social history:: Smoking status: Patient reports the use of cigarette tobacco products, smokes one pack cigarettes per day. ROS: 13:35 Constitutional: Negative for fever, chills, and weight loss, kb 13:35 Abdomen/GI: Positive for abdominal pain, nausea, 13:35 All other systems are negative, Exam: 13:35 Constitutional: This is a well developed, well nourished patient who is awake, alert, kb and in no acute distress. Head/Face: Normocephalic, atraumatic. ENT: Moist Mucous membranes Cardiovascular: Regular rate Respiratory: Respirations even and unlabored. No increased work of breathing. Talking in full sentences Skin: Warm, dry with normal turgor. Normal color. MS/ Extremity: Pulses equal, no cyanosis. Neurovascular intact. Full, normal range of motion. Neuro: Awake and alert, GCS 15, oriented to person, place, time, and situation. Moves all extremities. Normal gait. 13:35 Abdomen/GI: Inspection: abdomen appears normal, Bowel sounds: normal, Palpation: soft, in all quadrants, mild abdominal tenderness, in the epigastric area and right upper quadrant, Vital Signs: 10:50 BP 115 / 82; Pulse 76; Resp 18; Temp 98.6(O); Pulse Ox 99% ; Weight 154.22 kg; Height 6 nj1 ft. 0 in. ; Pain 9/10; 13:04 BP 115 / 77; Pulse 73; Resp 17; Pulse Ox 96% ; Pain 9/10; nj1 13:56 BP 115 / 74; Pulse 74; Resp 17; Pulse Ox 95% ; Pain 6/10; nj1 10:50 Body Mass Index 46.11 (154.22 kg, 182.88 cm) nj1 10:50 Pain Scale: Adult nj1 13:04 Pain Scale: Adult nj1 13:56 Pain Scale: Adult nj1 MDM: 10:10 Patient medically screened. kb 13:36 Differential diagnosis: cholecystitis, Cholelithiasis, gastritis, gastroesophageal kb reflux disease, non-specific abd pain, pancreatitis. Data reviewed: vital signs, nurses notes. I considered the following discharge prescriptions or medication management in the emergency department I discussed and recommended Over The Counter medications, Antibiotics: At this time antibiotics are not recommended. Test considered but Not performed: CT: CT considered, but pt is nontoxic in appearance, tolerating po intake, vss, labs wnl. Given return precautions and educated to follow up with GI. Historians other than the Patient: Parent: mother. 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 05/25 10:21 Order name: CBC with Diff; Complete Time: 12:02 kb 05/25 10:21 Order name: CMP; Complete Time: 12:07 kb 05/25 10:21 Order name: Lipase; Complete Time: 12:07 kb 05/25 10: Order name: Abdomen Limited US; Complete Time: 10:55 kb 05/25 10:21 Order name: IV Saline Lock; Complete Time: 11:29 kb 05/25 10: Order name: Labs collected and sent; Complete Time: 11:29 kb Administered Medications: 13:00 Drug: NS 0.9% IV 1000 ml IV at 1 bolus Per protocol; 1000 mL bolus Route: IV; Rate: 1 nj1 bolus; Site: right antecubital; 14:15 Follow up: Response: No adverse reaction; IV Status: Completed infusion; IV Intake: nj1 1000ml 13:00 Drug: Famotidine IVP 20 mg IVP once; dilute with 10 mL 0.9% NaCl; give over 2 minutes nj1 Route: IVP; Site: right antecubital; 13:30 Follow up: Response: No adverse reaction nj1 13:00 Drug: Ondansetron IVP 4 mg IVP once; over 2 minutes Route: IVP; Site: right antecubital;nj1 13:30 Follow up: Response: No adverse reaction; Nausea is increased nj1 13:39 Drug: Dicyclomine PO 20 mg PO once Route: PO; nj1 14:35 Follow up: Response: No adverse reaction nj1 14:34 Drug: GI Cocktail without - (Maalox PO 30 ml, Lidocaine Mucous Membrane 2 % 15 nj1 ml) PO once {Note: No lidocaine viscous available, given maalox po 30ml).} Route: PO; Disposition: 14:56 Co-signature as Attending Physician, Jomar Haro MD I reviewed the patient's care rn provided by the Advanced Practice Provider and agree with the diagnosis and treatment plan. Disposition Summary: 05/25/23 13:04 Discharge Ordered Notes: Location: Home Condition: Stable kb Diagnosis - Upper abdominal pain, unspecified kb Followup: kb - With: Emergency Department - When: As needed - Reason: Worsening of condition Followup: kb - With: Private Physician - When: 2 - 3 days - Reason: Recheck today's complaints, Continuance of care, Re-evaluation by your physician Discharge Instructions: - Discharge Summary Sheet kb - Abdominal Pain, Adult, [id number] kb Forms: - Medication Reconciliation Form kb - Thank You Letter kb - Antibiotic Education kb - Prescription Opioid Use kb - Patient Portal Instructions kb - Leadership Thank You Letter kb Prescriptions: - Zofran 4 mg Oral tablet - take 1 tablet ORAL route every 6 hours As needed; 12 tablet; Refills: 0, kb Product Selection Permitted - dicyclomine 20 mg Oral tablet - take 1 tablet ORAL route 4 times per day As needed; 20 tablet; Refills: 0, kb Product Selection Permitted Signatures: Dispatcher [employer] EDCristiana Gee, PRINCIPAL JAVA SOFTWARE ENGINEER-C PRINCIPAL JAVA SOFTWARE ENGINEER-Jomar Martin MD MD rn Allyssa Chou RN RN nj1
--- NOTE | 2023-05-25 13:05 | ER ---
Nurse's Notes [facility] Name: Brad Recinos Jr Age: 32 yrs Sex: Male : 1990 Arrival Date: 05/25/2023 Time: 10:09 Bed 20 Private MD: Diagnosis: Upper abdominal pain, unspecified Presentation: 05/25 10:31 Note Not in WR when called for triage. [facility] 10:50 Chief complaint: Patient states: Abdominal pain since 5am this morning. Nauseous. nj1 Denies vomiting/diarrhea. Coronavirus screen: Vaccine status: Patient reports being unvaccinated. Ebola Screen: Patient denies travel to an Ebola-affected area in the 21 days before illness onset. Initial Sepsis Screen: Does the patient meet any 2 criteria? No. Patient's initial sepsis screen is negative. Does the patient have a suspected source of infection? No. Patient's initial sepsis screen is negative. Risk Assessment: Do you want to hurt yourself or someone else? Patient reports no desire to harm self or others. Onset of symptoms was May 25, 2023 at 05:00. 10:50 Method Of Arrival: Ambulatory nj1 10:50 Acuity: ANABELLE 3 nj1 Triage Assessment: 11:00 General: Appears in no apparent distress. uncomfortable, Behavior is calm, cooperative, nj1 appropriate for age. Pain: Complains of pain in abdomen Pain currently is 9 out of 10 on a pain scale. Neuro: No deficits noted. Level of Consciousness is awake, alert, obeys commands, Oriented to person, place, time, situation. Cardiovascular: No deficits noted. Patient's skin is warm and dry. Respiratory: No deficits noted. Airway is patent Respiratory effort is even, unlabored. GI: Reports upper abdominal pain, nausea. 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 - Social history:: Smoking status: Patient reports the use of cigarette tobacco products, smokes one pack cigarettes per day. Screenin:06 [facility] ED Fall Risk Assessment (Adult) Score/Fall Risk Level 0 - 2 = Low Risk [facility] Oriented to surroundings, Maintained a safe environment, Hourly rounding (assess needs \T\ fall precautionary measures) done. Abuse screen: Denies threats or abuse. Denies injuries from another. Nutritional screening: No deficits noted. Tuberculosis screening: No symptoms or risk factors identified. Assessment: 13:00 Reassessment: Patient appears in no apparent distress at this time. No changes from [facility] previously documented assessment. Patient and/or family updated on plan of care and expected duration. Pain level reassessed. Patient is alert, oriented x 3, equal unlabored respirations, skin warm/dry/pink. 14:15 Reassessment: Patient appears in no apparent distress at this time. Patient and/or nj1 family updated on plan of care and expected duration. Pain level reassessed. Patient is alert, oriented x 3, equal unlabored respirations, skin warm/dry/pink. Vital Signs: 10:50 BP 115 / 82; Pulse 76; Resp 18; Temp 98.6(O); Pulse Ox 99% ; Weight 154.22 kg; Height 6 nj1 ft. 0 in. ; Pain 9/10; 13:04 BP 115 / 77; Pulse 73; Resp 17; Pulse Ox 96% ; Pain 9/10; nj1 13:56 BP 115 / 74; Pulse 74; Resp 17; Pulse Ox 95% ; Pain 6/10; nj1 10:50 Body Mass Index 46.11 (154.22 kg, 182.88 cm) nj1 10:50 Pain Scale: Adult nj1 13:04 Pain Scale: Adult nj1 13:56 Pain Scale: Adult ks1 ED Course: 10:10 Patient arrived in ED. rg4 10:10 Cristiana Davison FNP-C is PHCP. kb 10:10 Jomar Haro MD is Attending Physician. kb 10:50 Abdomen Limited US In Process Unspecified. EDMS 10:51 Triage completed. nj1 10:52 Arm band placed on right wrist. nj1 12:51 Allyssa Chou RN is Primary Nurse. nj1 13:00 Patient has correct armband on for positive identification. Bed in low position. Call nj1 light in reach. Side rails up X 1. Adult w/ patient. Provided Education on: call light, fall precautions. 13:11 No provider procedures requiring assistance completed. nj1 14:15 IV discontinued, intact, bleeding controlled. nj1 Administered Medications: 13:00 Drug: NS 0.9% IV 1000 ml IV at 1 bolus Per protocol; 1000 mL bolus Route: IV; Rate: 1 nj1 bolus; Site: right antecubital; 14:15 Follow up: Response: No adverse reaction; IV Status: Completed infusion; IV Intake: nj1 1000ml 13:00 Drug: Famotidine IVP 20 mg IVP once; dilute with 10 mL 0.9% NaCl; give over 2 minutes nj1 Route: IVP; Site: right antecubital; 13:30 Follow up: Response: No adverse reaction nj1 13:00 Drug: Ondansetron IVP 4 mg IVP once; over 2 minutes Route: IVP; Site: right antecubital;nj1 13:30 Follow up: Response: No adverse reaction; Nausea is increased nj1 13:39 Drug: Dicyclomine PO 20 mg PO once Route: PO; nj1 14:35 Follow up: Response: No adverse reaction nj1 14:34 Drug: GI Cocktail without - (Maalox PO 30 ml, Lidocaine Mucous Membrane 2 % 15 nj1 ml) PO once {Note: No lidocaine viscous available, given maalox po 30ml).} Route: PO; Medication: 13:12 VIS not applicable for this client. nj1 Intake: 14:15 IV: 1000ml; Total: 1000ml. nj1 Outcome: 13:04 Discharge ordered by MD. langston 14:30 Discharged to home ambulatory, with family, nj1 14:30 Condition: stable 14:30 Discharge instructions given to patient, Instructed on discharge instructions, follow up and referral plans. medication usage, Demonstrated understanding of instructions, follow-up care, medications, Prescriptions given X 2, 14:37 Patient left the ED. nj1 Signatures: Dispatcher [employer] EDMS Cristiana Davison FNP-C FNP-Ckb Garcia, Rubi rg4 Allyssa Chou, RN RN nj1 Corrections: (The following items were deleted from the chart) 10:53 10:50 Pulse 76bpm; Resp 18bpm; Pulse Ox 99%; Temp 98.6F Oral; 154.22 kg; Height 6 ft.; nj1 BMI: 46.1; Pain 9/10, Adult; nj1 13:06 13:00 Reassessment: Patient appears in no apparent distress at this time. Patient nj1 and/or family updated on plan of care and expected duration. Pain level reassessed. Patient is alert, oriented x 3, equal unlabored respirations, skin warm/dry/pink. nj1 14:36 13:56 BP 115 / 74; Pulse 74bpm; Resp 17bpm; Pulse Ox 95%; nj1 nj1
[2023-05-25] MEDS ORDERED: ONDANSETRON 4 MG/2 ML VIAL ONE (13:08)
[2023-05-25] MEDS ORDERED: FAMOTIDINE 20 MG/2 ML VIAL IV ONE (13:08)
[2023-05-25] MEDS ORDERED: NA CHLORIDE 0.9% 1,000 ML ONE (13:08)
[2023-05-25] MEDS ORDERED: DICYCLOMINE HCL 10 MG CAP ONE (13:48)
[2023-05-25] MEDS ORDERED: MAGNES/ALUMIN/SIMET 30ML UCUP ONE (14:42)
[2023-05-25 14:57] VITALS: TEMP 98.6
[2023-05-25 14:59] VITALS: BP 115/74; O2SAT 95
== END 2023-05-25 14:37 | disposition home or self-care (01) ==
LOC: ER 10:09
DX: R10.11 Right upper quadrant pain (principal)
CPT/HCPCS: 36415; 76705; 80053; 83690; 85025; 96361; 96374; 96375; 99284; J2405; J7030

== ENCOUNTER 2023-05-25 20:18 | Emergency (ER) | payer SELFPAY ==
--- OUTSIDE RECORDS SUMMARY | 2023-05-25 20:21 | XMS REPORT | Continuity of Care Document ---
:1990 Author Organization [facility] t Address [address] [place] [address] Care Team Providers Name Role Phone PCP, [...] Policy Number Effective Date Expiration Date S [facility] MEDICAID PENDING PENDING 2023 00:00:00 Problems This patient has no known problems. Allergies, Adverse Reactions, Alerts Allergy Allergy Status Severity Reaction(s) Onset Inactive Treating Comm ents Source Name Type Date Date Clinician NO KNOWN Drug Active Univers ALLERGIE Class ity [facility] Social History Social Habit Start Date Stop Date Quantity Comments Source Sexual orientation [facility] Sex Assigned At [birth year] [facility] 00:00:00 00:00:00 [facility] Branch Smoking Status Start Date Stop Date Source Tobacco smoking consumption [facility] Branch Medications Ordered Filled Start Stop Current Ordering Indication Dosage Frequency Signature Comments Components Source Medication Medication Date Date Medication? Clinician (SIG) Name Name maalox:diph 2023-1 2023- No 15mL 15 mL, Uni vers enhydrAMINE 005-21 Oral, ity of :lidocaine 20:15: 20:15 ONCE, 1 Binh as 2 % viscous 00 :00 dose, On Medi ramo 1:1:1 Fri Branch ([facility] 05/21/23 [facility]) at 1515, oral Routine suspension 15 mL omeprazole 2022-08 Yes [id number] 40mg Take 1 U nivers 40 mg 0 capsule by ity of capsule 00:00: mouth in [place] 00 the Medical morning. Branch Vital Signs Vital Name Observation Time Observation Value Comments Source Systolic blood 2023-05-21 21:26:06 128 mm[Hg] [facility] Diastolic blood 2023-05-21 21:26:06 94 mm[Hg] [facility] Heart rate 2023-05-21 21:26:06 86 /min [facility] Body temperature 2023-05-21 21:26:06 37.06 Marcela [facility] Respiratory rate 2023-05-21 21:26:06 18 /min [facility] Oxygen saturation in 2023-05-21 21:26:06 100 /min [facility] Arterial blood by [facility] Pulse oximetry Branch Body height 2023-05-21 19:31:00 182.9 cm [facility] Body weight 2023-05-21 19:31:00 156.491 kg [facility] BMI 2023-05-21 19:31:00 46.79 kg/m2 [facility] Systolic blood 2023-05-21 16:40:00 128 mm[Hg] [facility] Diastolic blood 2023-05-21 16:40:00 95 mm[Hg] [facility] Heart rate 2023-05-21 16:40:00 92 /min [facility] Body temperature 2023-05-21 16:40:00 37 Marcela [facility] Res[facility] rate 2023-05-21 16:40:00 18 /min [facility] Body height 2023-05-21 16:40:00 182.9 cm [facility] Body weight 2023-05-21 16:40:00 156.627 kg [facility] BMI 2023-05-21 16:40:00 46.83 kg/m2 Univers[facility] ty [facility] Oxygen saturation in 2023-05-21 16:40:00 100 /min [facility] blood by [facility] Pulse oximetry Branch Procedures Procedure Date / Time Performed Performing Clinician Sour e ASSIGNMENT OF BENEFITS 2023-05-21 20:39:33 Doctor Unassigned, No [facility] Name Medical Branch CONSENT/REFUSAL FOR 2023-05-21 19:14:42 [facility] Branch TREATMENT NOTICE OF PRIVACY 2023-05-21 16:34:41 Doctor Unassigned, No [facility] Name Medical Branch CONSENT/REFUSAL FOR 2023-05-21 16:30:50 [facility], [facility] Name Medical Branch TREATMENT Encounters Start End Encounter Admission Attending Care Care Encounter Source Date/Time Date/Time Type Type Clinicians Facility Department ID 2023-05-21 2023-05-21 Emergency X KADY [facility] ERT [id number] Univers 14:33:00 16:29:00 SHEILA martinez [facility] 2023-05-21 2023-05-21 [id number] Univers 14:33:00 16:29:00 Sheila COLLADO [id number] ity [facility] [id number] [facility] [id number] [place] [id number] Branch 2023-05-21 2023-05-21 Emergency X SUKHJINDER CORRALES [facility] 1 [id number] Univers 11:40:00 12:58:00 SUKHJINDER CORRALES [facility] 2023-05-21 2023-05-21 Emergency Emily [facility] [id number] Univers 11:40:00 12:58:00 Sukhjinder COLLADO [id number] i ty [facility] [id number] [facility] [id number] [address] Results Test Description Test Time Test Comments Results Result Comments Source Ceruloplasmin 2017-08-17 08:36:00 Test Item Value Reference Range Interpretation Comme nts Ceruloplasmin (test code = 458921) 24.9 mg/dL 16.0-31.0 N Treponema Pallidum [id number] 22:05:00 Test Item Value Reference Range Interpretation Comments Treponemal Antibody IgG (test Non-reactive Non-reactive N code = TREPAB) [id number] 07:39:00 Test Item Value Reference Range Interpretation Comments Phosphorus (test code = PO4) 4.2 mg/dL 2.70-4.50 N Thyroid Stimulating Hormone (TSH)2017-08-07 07:51:00 Test Item Value Reference Range Interpretation Comments TSH (test code = TSH) 1.33 mIU/mL 0.270-4.200 N Lipid [id number] 07:46:00 Test Item Value Reference Range Interpretation Comments Cholesterol (test 177 mg/dL 0-200 N code = CHOL) Triglycerides (test 71 mg/dL 9-200 N code = TRIG) HDL (test code = 39 mg/dL 40-60 L HDL) Chol/HDL (test code 4.5 Ratio 0.0-5.0 N = CHOLPHDL) LDL, Calculated 124 0-130 N (NOTE)RISK O F HEART (test code = LDLC) DISEASEPu blished by [place] Heart AssociationAnal yte Optimal Boderli ne Increased RiskC HOL <200 200-239 >240TRI G <150 150-199 >200HDL Male: >60 <40HDL Fema le: >60 <50LDL <100 13 0-159 >160LDL NEAR OP [facility] IS 100-129 VLDL (test code = 14 mg/dL 5-40 N VLDL) LDL/HDL (test code = 3 LDLPHDL) RPR, [id number] 06:55:00 Test Item Value Reference Range Interpretation Comments RPR (test code = RPR) Non-Reactive Non-Reactive N [id number] 22:21:00 Test Item Value Reference Range Interpretation [...] g/dL 0.00-0.01 N code = ETOHU) Urinalysis [id number] 22:13:00 Test Item Value Reference Range Interpretation Comments Color (test code = Yellow Yellow,Straw,Pl N COLOR) yellow Clarity (test code = Clear Clear N CLAR) Specific [place] (test 1.019 1.001-1.035 N code = SPGR) [...] code = None /HPF BACT) Comprehensive Metabolic [id number] 20:50:00 Test Item Value Reference Range Interpretation [...] [employer] Foundation,http :[email or web address] ep.nih.gov CBC with [id number] 20:36:00 Test Item Value Reference Range Interpretation [...] code = ALYMPH) 1.5 K/cumm 0.5-4.6 N Tucker Abs (test code = AMONO) 0.7 K/cumm 0.0-1.2 N Eos Abs (test code = AEOS) 0.06 K/cumm 0.00-0.74 N Baso Abs (test code = ABASO) 0.0 K/cumm 0.00-0.21 N
== END 2023-05-25 21:08 | disposition left against medical advice (07) ==
LOC: ER 20:18
DX: Z02.9 Encounter for administrative examinations, unspecified (principal)

== ENCOUNTER 2023-07-16 21:35 | Emergency (ER) | payer SELFPAY ==
--- OUTSIDE RECORDS SUMMARY | 2023-07-16 21:39 | XMS REPORT | Continuity of Care Document ---
Author Name Unknown Address [address] [facility] [place] [address] [facility] thconnect Address [address] 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 Attendin Clinician Unavailable ADINA GOODRICH M.D., ADINA Ash Admitting Clin ician Unavailable Payers Payer Name Policy Type Policy Number Effective Date Expirati on Date Source MEDICAID PENDING PENDING 2023 00:00:00 Allergies, Adverse Reactions, Alerts Allergy Name Allergy Type Status Severity Reaction(s) Onset Date Inactive Date Treating Clinician Comments Source NO KNOWN ALLERGIE S Drug Class Active [facility] Social History Social Habit Start Date Stop Date Quantity Comments Source Sexual orientation [facility] Sex Assigned At 1990 00:00:00 1990 00:00:00 [facility] Smoking Status Start Date Stop Date Source Tobacco smoking consumption unknown [facility] Medications Ordered Medication Name Filled Medication Name Start Date Stop Date Current Medication? Ordering Clinician Indication Dosage Frequency Signature (SIG) Comments Components Source maalox:diph enhydrAMINE :lidocaine 2 % viscous 1:1:1 ([facility]) oral suspension 15 mL 2022-08 03:30: 00 05-26 03:23 :00 No 15mL 15 mL, Oral, ONCE, 1 dose, On Wed05/25/23 at 2230, Routine [facility] maalox:diph enhydrAMINE :lidocaine 2 % viscous 1:1:1 ([facility]) oral suspension 15 mL 2022-08 20:15: 00 05-21 20:15 :00 No 15mL 15 mL, Oral, ONCE, 1 dose, On Wed05/21/23 at 1515, Routine [facility] omeprazole 40 mg capsule 2022-08 00:00: 00 Yes [id number] 40mg Take 1 capsule by mouth in the morning. [facility] omeprazole 40 mg capsule 2022-08 00:00: 00 Yes [id number] 40mg Take 1 capsule by mouth in the morning. [facility] Vital Signs Vital Name Observation Time Observation Value Comments S ource Systolic blood pressure 2023-05-26 03:47:00 129 mm[Hg] [facility] Diastolic blood pressure 2023-05-26 03:47:00 76 mm[Hg] [facility] Heart rate 2023-05-26 03:47:00 75 /min [facility] Body temperature 2023-05-26 03:47:00 37.28 Marcela [facility] Respiratory rate 2023-05-26 03:47:00 16 /min [facility] Oxygen saturation in Arterial blood by Pulse oximetry 2023-05-26 03:47:00 95 /min [facility] Body height 2023-05-26 02:24:00 182.9 cm [facility] Body weight 2023-05-26 02:24:00 154.223 kg [facility] BMI 2023-05-26 02:24:00 46.11 kg/m2 [facility] Systolic blood pressure 2023-05-21 21:26:06 128 mm[Hg] [place] [facility] Diastolic blood pressure 2023-05-21 21:26:06 94 mm[Hg] [facility] Heart rate 2023-05-21 21:26:06 86 /min Unive [facility] Body temperature 2023-05-21 21:26:06 37.06 Marcela [facility] Respiratory rate 2023-05-21 21:26:06 18 /min [facility] Oxygen saturation in Arterial blood by Pulse oximetry 2023-05-21 21:26:06 100 /min [facility] Body height 2023-05-21 19:31:00 182.9 cm [facility] Body weight 2023-05-21 19:31:00 156.491 kg [facility] BMI 2023-05-21 19:31:00 46.79 kg/m2 [facility] Systolic blood pressure 2023-05-21 16:40:00 128 mm[Hg] [place] [facility] Diastolic blood pressure 2023-05-21 16:40:00 95 mm[Hg] [place] [facility] Heart rate 2023-05-21 16:40:00 92 /min [facility] Body temperature 2023-05-21 16:40:00 37 Marcela [facility] Respiratory rate 2023-05-21 16:40:00 18 /min [facility] Body height 2023-05-21 16:40:00 182.9 cm [facility] Body weight 2023-05-21 16:40:00 156.627 kg [facility] BMI 2023-05-21 16:40:00 46.83 kg/m2 [facility] Oxygen saturation in Arterial blood by Pulse oximetry 2023-05-21 16:40:00 100 /min [place] [facility] Procedures Procedure Date / Time Performed Performing Clinicia n Source CONSENT/REFUSAL FOR DIAGNOSIS AND TREATMENT 2023-05-26 02:02:36 Doctor Unassigned, [place] [facility] ASSIGNMENT OF BENEFITS 2023-05-21 20:39:33 Docto r Unassigned, [place] [facility] CONSENT/REFUSAL FOR DIAGNOSIS AND TREATMENT 2023-05-21 19:14:42 Doctor Unassigned, [place] [facility] NOTICE OF PRIVACY PRACTICES 2023-05-21 16:34:41 Doctor Unassigned, [place] [facility] CONSENT/REFUSAL FOR DIAGNOSIS AND TREATMENT 2023-05-21 16:30:50 Doctor Unassigned, [place] [facility] Encounters Start Date/Time End Date/Time Encounter Type Admission Type Attending [facility] Care Department Encounter ID Source 2023-05-25 21:28:00 2023-05-25 22:49:00 Emergency X ISABEL BALLESTEROS [facility] ERT [id number] [facility] 2023-05-25 21:28:00 2023-05-25 22:49:00 Emergency Isabel Ballesteros [facility] [id number] [facility] 2023-05-21 14:33:00 2023-05-21 16:29:00 Emergency SHEILA WREN [facility] ERT [id number] [facility] 2023-05-21 14:33:00 2023-05-21 16:29:00 Emergency Sheila Hillman [facility] [id number] [facility] 2023-05-21 11:40:00 2023-05-21 12:58:00 Emergency Sukhjinder Diaz [facility] [id number] [facility] 2023-05-21 11:40:00 2023-05-21 12:58:00 Emergency X SUKHJINDER DIAZ TIMOTHY [facility] ERT [id number] [facility] Results Test Description Test Time Test Comments Results Result Co mments Source Treponema Pallidum [id number] 22:05:00* Test Item Value Reference Range Interpretation Comme nts Treponemal Antibody IgG (rody t code = TREPAB) Non-reactive Non-reactive N [id number] 07:39:00* Test Item Value Reference Range Interpretation Comme nts Phosphorus (test code = PO4) 4.2 mg/dL 2.70-4.50 N Thyroid Stimulating Hormone (TSH)2017-08-07 07:51:00* Test Item Value Reference Range Interpretation Comme nts TSH (test code = TSH) 1.33 mIU/mL 0.270-4.200 N Lipid [id number] 07:46:00* Test Item Value Reference Range Interpretation Comme nts Cholesterol (test code = CHOL) 177 mg/dL 0-200 N Triglycerides (test code = TRIG) 71 mg/dL 9-200 N HDL (test code = HDL) 39 mg/dL 40-60 L Chol/HDL (test code = CHOLPHDL) 4.5 Ratio 0.0-5.0 N LDL, Calculated (test code = LDLC) 124 0-130 N (NOTE)RISK OF HEART DISEASEPublished by Estonian Heart AssociationAnalyte Optimal Boderline Increased RiskCHOL <200 200-239 >240TRIG <150 150-199 >200HDL Male: >60 <40HDL Female: >60 <50LDL <100 130-159 >160LDL NEAR OPTIMAL IS 100-129 VLDL (test code = VLDL) 14 mg/dL 5-40 N LDL/HDL (test code = LDLPHDL) 3 RPR, [id number] 06:55:00* Test Item Value Reference Range Interpretation Comme nts RPR (test code = RPR) Non-Reactive Non-Reactive N [id number] 22:21:00* Test Item Value Reference Range Interpretation Comme nts Amphetamine (test code = AMPH) Negative Negative N For diagnostic purposes only, positive results should always be assessedin conjunctionwith the patient's medical history,clinical examination and otherfindings.To fulfill legal requirements, a more specific alternate chemical methodmust be used inorder to obtain a Confirmed analytical result. GC/MS is the preferred confirmatory method. Barbiturates (test code = JESSE) Negative Negative N Benzodiazepine (test code = LOW) Negative Negative N Cocaine (test code = COCA) Negative Negative N Methadone (test code = MTHD) Negative Negative N Opiates (test code = OPIA) Negative Negative N PCP (test code = PCP) Negative Negative N Propoxyphene (test code = PROPOX) Negative Negative N THC (test code = THC) Negative Negative N Alcohol, Urine (test code = ETOHU) <0.01 g/dL 0.00-0.01 N Urinalysis [id number] 22:13:00* Test Item Value Reference Range Interpretation Comme nts Color (test code = COLOR) Yellow Yellow,Straw,Pl yellow N Clarity (test code = CLAR) Clear Clear N Specific [place] (test code = SPGR) 1.019 1.001-1.035 N pH (test code = PH) 5.0 5.0-9.0 N Ketone (test code = KET) 150 mg/dL Negative A Glucose (test code = GLUCUR) Negative mg/dL Negative N Protein (test code = PROT) Negative mg/dL Negative N Bilirubin (test code = BILI) See IctoTest mg/dL Negative A Occult Blood (test code = UDOB) Small Negative A Urobilinogen (test code = UROB) 0.2 mg/dL 0.2-1.0 N Nitrite (test code = NIT) Negative Negative N Leuk Esterase (test code = LEUK) Negative Negative N Ictotest (test code = ICTOTEST) Confirmed Negative Negative,Confirmed Negative N Micros Exam (test code = MEXAM) Indicated Epithelial Cells (test code = EPI) 0-2 /LPF 0-30 A WBC, Urine (test code = UWBC) 0-5 /HPF 0-5 N RBC, Urine (test code = URBC) 0-3 /HPF 0-5 A Mucous, Urine (test code = UMUC) Few /HPF Bacteria (test code = BACT) None /HPF Comprehensive Metabolic [id number] 20:50:00* Test Item Value Reference Range Interpretation Comme nts Sodium (test code = NA) 133 mmol/L 135-145 L Potassium (test code = K) 3.8 mmol/L 3.5-5.1 N Chloride (test code = CL) 96 mmol/L 98-105 L Carbon Dioxide (test code = CO2) 26 mmol/L 22-29 N Glucose (test code = GLU) 88 mg/dL 70-115 N Blood Urea Nitrogen (test code = BUN) 10 mg/dL 6-20 N Creatinine (test code = CREAT) 0.9 mg/dL 0.7-1.2 N Calcium (test code = CA) 9.8 mg/dL 8.3-10.5 N Prot Total (test code = TP) 8.0 g/dL 6.4-8.3 N Albumin (test code = ALB) 4.5 g/dL 3.5-5.2 N A/G Ratio (test code = AGRATIO) 1.3 Ratio Globulin (test code = GLOB) 3.5 2.9-3.1 H Bili Total (test code = TBIL) 0.6 mg/dL 0.1-0.9 N Alk Phos (test code = APHOS) 91 U/L 40-129 N AST (test code = AST) 18 U/L 1-40 N ALT (test code = ALT) 24 U/L 1-41 N BUN/Creatinine Ratio (test code = BCRATIO) 11.1 Anion Gap (test code = AGAP) 11 mmol/L 7-16 N Estimated GFR (test code = GFR) >60 mL/min/1.73m2 eGFR (estimated Glomerular Filtration Rate) is an estimated value,calculated from the patient's serum creatinine using the MDRD equation.It is NOT the patient's actual GFR. The eGFR provides a more clinicallyuseful measure of kidney disease than serum creatinine alone.This calculation takes sex and race into account, if the informationis provided. If the race is not provided, and the patient isAfrican-Estonian, multiply by 1.212. If sex is not provided, and thepatient is female, multiply by 0.742. Results for patients <18 years ofage have not been validated by the MDRD study and should be interpretedwith caution.eGFR Result Interpretation:eGFR > or = 60 is in the Normal RangeeGFR < 60 may mean kidney diseaseeGFR < 15 may mean kidney failureRanges recommended by the National Kidney Foundation,http://nkdep .nih.gov CBC with [id number] 20:36:00* Test Item Value Reference Range Interpretation Comme nts WBC (test code = WBC) 7.7 K/cumm [...] 11.5-14.5 N Platelet Count (test code = PLTCT) 184 K/cumm 140-440 N MPV (test code = MPV) 7.7 fL [...] code = ALYMPH) 1.5 K/cumm 0.5-4.6 N Victoria Abs (test code = AMONO) 0.7 K/cumm 0.0-1.2 N Eos Abs (test code = AEOS) 0.06 K/cumm 0.00-0.74 N Baso Abs (test code = ABASO) 0.0 K/cumm 0.00-0.21 N Notes Date/Time Note Provider Source 2017-09-08 17:53:42 [id number] T17:53:42 [facility] Discharge SummaryPATIENT NAME: IVELISSE SCHUMACHER PHYSICIAN: Deb Bianchi MD Admitted: MR NUMBER: [id number] DISCHARGED: 08/13/2017 02:02:00 REASON FOR ADMISSION:Mr. Schumacher is a 26-year-old male with no past psychiatric history, presenting for a 5-day history of new onset paranoia, confusion, labile mood and verbal aggression in the context of psychosocial stressors (his lefthim 2 weeks ago and has cut off all communication. He lives with his mom 1 to 2 weeks of the month. She recently lost her house and they have been living now at a hotel). This is also in the context of a UDS that is negative x9. He is positive for delusions, "I'm going to and have STDs". He thinks his sister is going to shoot him. He thinks the FBI put a tap on his phone. He is positive for confusion. He does not recognize his family members. He had agitation and started slamming the cabinets. He was also verbally aggressive. He had a labile mood and was one minute crying, next minute irritable. He stated that he may have been on acid on 08/02/2017, theday before the onset of this presentation, but then he came back on this claim. He was evaluated at [facility] twice, got a CT head which was within normal limits, and a UDS which was negative x9. He was sent home. During my discussion with the patient, he was paranoid, asking about some immigration services, if we had gotten rid of his Allyn, if the FBI was coming. He states he has been worried about the FBI for the last 3 weeks. Family states that he has been a slightly more isolative and talking less with family since [place] which is about 1 month prior. Other than that, family denies any other delusions, AVH, disorganized speech,behavior or negative symptoms of schizophrenia. They state that his hygiene is good. He has a good heart. He is responsible. 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 Most medical causes were ruled out as CT head showed no acute changes, CBC wnls, vital signs were stable throughout admission, CMP and phosphorus levels unremarkable. UDS was negative x9 making substance use less likely, though it did not test for LSD. Case was discussed with neurology who did not believe there was a neurologic pathology such as complex partial seizures causing this presentation. RPR and FTA-ABS were non-reactive and patient denies transporting hazardous materials at work as national flatbed truck driver. His presentation is in the context of stressors and is of duration less than one month making acute psychotic disorder possible, we had resolution of paranoia with medications. There is some concern for negative symptoms of schizophrenia 1 month prior, this may be a first psychotic break and part of a larger picture of schizophreniform disorder or schizophrenia, only time will help elucidate this picture. As there is inadequate information due to the timing of events and the disease processes considered, we gave this patient the diagnosis of unspecified schizophrenia spectrum and other psychotic disorder as his final diagnosis. 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 Has supportive family in the area who visit him on a daily basis while in the unit.LEGAL HISTORY: [facility] Discharge SummaryPATIENT NAME: JENNYURIELIVELISSE PHYSICIAN: Deb Bianchi MD Admitted: MR NUMBER: [id number] DISCHARGED: 08/13/2017 02:02:00 REASON FOR ADMISSION:Mr. Schumacher is a 26-year-old male with no past psychiatric history, presenting for a 5-day history of new onset paranoia, confusion, labile mood and verbal aggression in the context of psychosocial stressors (his lefthim 2 weeks ago and has cut off all communication. He lives with his mom 1 to 2 weeks of the month. She recently lost her house and they have been living now at a hotel). This is also in the context of a UDS that is negative x9. He is positive for delusions, "I'm going to and have STDs". He thinks his sister is going to shoot him. He thinks the FBI put a tap on his phone. He is positive for confusion. He does not recognize his family members. He had agitation and started slamming the cabinets. He was also verbally aggressive. He had a labile mood and was one minute crying, next minute irritable. He stated that he may have been on acid on 08/02/2017, theday before the onset of this presentation, but then he came back on this claim. He was evaluated at [facility] twice, got a CT head which was within normal limits, and a UDS which was negative x9. He was sent home. During my discussion with the patient, he was paranoid, asking about some immigration services, if we had gotten rid of his Allyn, if the FBI was coming. He states he has been worried about the FBI for the last 3 weeks. Family states that he has been a slightly more isolative and talking less with family since [place] which is about 1 month prior. Other than that, family denies any other delusions, AVH, disorganized speech,behavior or negative symptoms of schizophrenia. They state that his hygiene is good. He has a good heart. He is responsible. 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 Most medical causes were ruled out as CT head showed no acute changes, CBC wnls, vital signs were stable throughout admission, CMP and phosphorus levels unremarkable. UDS was negative x9 making substance use less likely, though it did not test for LSD. Case was discussed with neurology who did not believe there was a neurologic pathology such as complex partial seizures causing this presentation. RPR and FTA-ABS were non-reactive and patient denies transporting hazardous materials at work as national flatbed truck driver. His presentation is in the context of stressors and is of duration less than one month making acute psychotic disorder possible, we had resolution of paranoia with medications. There is some concern for negative symptoms of schizophrenia 1 month prior, this may be a first psychotic break and part of a larger picture of schizophreniform disorder or schizophrenia, only time will help elucidate this picture. As there is inadequate information due to the timing of events and the disease processes considered, we gave this patient the diagnosis of unspecified schizophrenia spectrum and other psychotic disorder as his final diagnosis. 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 Has supportive family in the area who visit him on a daily basis while in the unit.LEGAL HISTORY: [facility] Discharge SummaryNone.High school is his highest level of education.PRINCIPAL PROCEDURES:Psychopharmacotherapy.SPECIAL PROCEDURE:None. [facility] Discharge SummaryNone.High school is his highest level of education.PRINCIPAL PROCEDURES:Psychopharmacotherapy.SPECIAL PROCEDURE:None. [facility] Discharge SummaryHOSPITAL COURSE:Mr. Ivelisse Schumacher is a 26-year-old male that was admitted to Dr. Goodrich's team from 08/05/2017 to 08/13/2017. The patient was on unit restriction along with elopement and standard PICU precautions. The patient was started on Risperdal 2 mg p.o. at bedtime for his psychotic symptoms; however, he experienced nausea and vomiting. He was also started on Rwczpkms67 mg p.o. at bedtime p.r.n. for anxiety and trazodone 50 mg p.o. at bedtime p.r.n. for sleep. Since the patient did experience nausea and vomiting with the Risperdal, we changed him to Zyprexa 10 mg p.o. at bedtime. We eventually increased this to Zyprexa 10 mg p.o. q. 12 hours, as the patient was still psychotic and paranoid. The patient received multiple emergency medications while on the unit. We will give him 10-2-50, (10 mg Haldol IM, 2mg Ativan IM and 50 mg Benadryl IM). These were administered on 08/06/2017, 08/08/2017, 08/09/2017 and 08/11/2017. He would either be grabbing urine samples and trying to escape. Another time, he was going into female patient's room and was not redirectable. He has been involved in taking chairs and throwing chairs. Another time, he kicked the door that came off the hinges and ran down the torres. Due to the paranoia plus these acts of agitation and violence, we did file on the patient. We are granted the OPC. Eventually the patient became less paranoid. The patient was med-compliant. Family visited on a regular basis. Family confirmed that he has a history of acting out, destroying property when he becomes mad. He is regretful after they say that all of the episodes that have occurred on the unit are 100% hisbaseline. After this, staff realized that they could eventually redirect himand no more emergency medications were given at the request of the family. Some labs were ordered to rule out medical causes. Neurology was called. They do not believe the presentation sounded like a neurologic pathology. They did not come and see the patient after we spoke and discussed that it was most likely not necessary at this time. The patient did show symptom improvement. He attended daily assessments. He attended group, but was distracted and would rarely participate. On the day of discharge, the patient was deemed suitable for discharge based on no SI, HI, AVH, paranoia, improved mood and affect. He was sleeping well with relief from the trazodone. His insight is poor, as he could not remember why or what caused the psychosis. He was regretful though of his more aggressive acts while on the unit. His judgment was fair to poor, but family assured us that this washis baseline and they felt safe taking him home. The patient's affect became less blunted. His thought process became more organized and less limited. He was able to speak about his hobbies and his work and plans for work when he left. He became a little bit less agitated and had fewer episodes of trying to escape. He was no longer paranoid on discharge. The patient's family visited him on a daily basis and stated that they thought he was back to his baseline as far as communication and cognition, that he was talking with them as normal, that he was no longer expressing any paranoid thoughts, that they felt safe taking him home and did not feel like him or they would be in danger. The patient plans to return home, continue his psychotropic medications and follow up with his outpatient psychiatrist. [facility] Discharge SummaryHOSPITAL COURSE:Mr. Ivelisse Schumacher is a 26-year-old male that was admitted to Dr. Goodrich's team from 08/05/2017 to 08/13/2017. The patient was on unit restriction along with elopement and standard PICU precautions. The patient was started on Risperdal 2 mg p.o. at bedtime for his psychotic symptoms; however, he experienced nausea and vomiting. He was also started on Grujoqbr47 mg p.o. at bedtime p.r.n. for anxiety and trazodone 50 mg p.o. at bedtime p.r.n. for sleep. Since the patient did experience nausea and vomiting with the Risperdal, we changed him to Zyprexa 10 mg p.o. at bedtime. We eventually increased this to Zyprexa 10 mg p.o. q. 12 hours, as the patient was still psychotic and paranoid. The patient received multiple emergency medications while on the unit. We will give him 10-2-50, (10 mg Haldol IM, 2mg Ativan IM and 50 mg Benadryl IM). These were administered on 08/06/2017, 08/08/2017, 08/09/2017 and 08/11/2017. He would either be grabbing urine samples and trying to escape. Another time, he was going into female patient's room and was not redirectable. He has been involved in taking chairs and throwing chairs. Another time, he kicked the door that came off the hinges and ran down the torres. Due to the paranoia plus these acts of agitation and violence, we did file on the patient. We are granted the OPC. Eventually the patient became less paranoid. The patient was med-compliant. Family visited on a regular basis. Family confirmed that he has a history of acting out, destroying property when he becomes mad. He is regretful after they say that all of the episodes that have occurred on the unit are 100% hisbaseline. After this, staff realized that they could eventually redirect himand no more emergency medications were given at the request of the family. Some labs were ordered to rule out medical causes. Neurology was called. They do not believe the presentation sounded like a neurologic pathology. They did not come and see the patient after we spoke and discussed that it was most likely not necessary at this time. The patient did show symptom improvement. He attended daily assessments. He attended group, but was distracted and would rarely participate. On the day of discharge, the patient was deemed suitable for discharge based on no SI, HI, AVH, paranoia, improved mood and affect. He was sleeping well with relief from the trazodone. His insight is poor, as he could not remember why or what caused the psychosis. He was regretful though of his more aggressive acts while on the unit. His judgment was fair to poor, but family assured us that this washis baseline and they felt safe taking him home. The patient's affect became less blunted. His thought process became more organized and less limited. He was able to speak about his hobbies and his work and plans for work when he left. He became a little bit less agitated and had fewer episodes of trying to escape. He was no longer paranoid on discharge. The patient's family visited him on a daily basis and stated that they thought he was back to his baseline as far as communication and cognition, that he was talking with them as normal, that he was no longer expressing any paranoid thoughts, that they felt safe taking him home and did not feel like him or they would be in danger. The patient plans to return home, continue his psychotropic medications and follow up with his outpatient psychiatrist. [facility] Discharge SummaryMENTAL STATUS EXAMINATION ON DISCHARGE:The patient is well appearing and borderline cooperative with interview, as he continually asks to go home and will follow us as we walk away from the interview, continuing to ask if he will go home. He does have good eye contact. No psychomotor retardation, activation, tics, tardive dyskinesia ortremor. His speech is regular rate, rhythm and volume. His mood is "good". His affect is euthymic though still mildly constricted. He denies any audiovisual hallucinations. His thought process is linear and goal directed though is still somewhat limited and focused on whether he was going to be able to leave or not. Thought content: The patient denies any SI, HI, paranoia. He does not think that the FBI is out to get him or that patients are out to get him. His insight is poor to fair as he is regretful of his violent acts. He states he will continue his medications. His judgment is fair as he is able to stay more calm and not have any episodes of agitation overnight though he had some the day before. Cognition: The patient is alert and oriented to person, place, time and circumstance. Gait is normal.LABORATORY DATA:None relevant to discharge.DRUG REACTIONS AND INTERACTIONS:The patient did have some nausea and vomiting and belly pain in response to Risperdal.DISCHARGE MEDICATIONS: 1. Zyprexa 10 mg p.o. q. 12 hours. 2. Vistaril 50 mg p.o. q. 6 hours p.r.n. for anxiety. 3. Trazodone 50 mg p.o. at bedtime p.r.n. for insomnia.DISCHARGE INSTRUCTIONS:Provided to the patient.PHYSICAL ACTIVITY:As tolerated.DRIVING RESTRICTIONS:Do not drive after taking sedating medications such as Zyprexa, Vistaril and trazodone.DIET RESTRICTIONS:None.FOLLOWUP:The patient has a followup appointment scheduled with [facility] in [place], [place] on 08/18/[address] Apodaca. The patient has been given specific instructions on how to get to the appointment. [facility] Discharge SummaryMENTAL STATUS EXAMINATION ON DISCHARGE:The patient is well appearing and borderline cooperative with interview, as he continually asks to go home and will follow us as we walk away from the interview, continuing to ask if he will go home. He does have good eye contact. No psychomotor retardation, activation, tics, tardive dyskinesia ortremor. His speech is regular rate, rhythm and volume. His mood is "good". His affect is euthymic though still mildly constricted. He denies any audiovisual hallucinations. His thought process is linear and goal directed though is still somewhat limited and focused on whether he was going to be able to leave or not. Thought content: The patient denies any SI, HI, paranoia. He does not think that the FBI is out to get him or that patients are out to get him. His insight is poor to fair as he is regretful of his violent acts. He states he will continue his medications. His judgment is fair as he is able to stay more calm and not have any episodes of agitation overnight though he had some the day before. Cognition: The patient is alert and oriented to person, place, time and circumstance. Gait is normal.LABORATORY DATA:None relevant to discharge.DRUG REACTIONS AND INTERACTIONS:The patient did have some nausea and vomiting and belly pain in response to Risperdal.DISCHARGE MEDICATIONS: 1. Zyprexa 10 mg p.o. q. 12 hours. 2. Vistaril 50 mg p.o. q. 6 hours p.r.n. for anxiety. 3. Trazodone 50 mg p.o. at bedtime p.r.n. for insomnia.DISCHARGE INSTRUCTIONS:Provided to the patient.PHYSICAL ACTIVITY:As tolerated.DRIVING RESTRICTIONS:Do not drive after taking sedating medications such as Zyprexa, Vistaril and trazodone.DIET RESTRICTIONS:None.FOLLOWUP:The patient has a followup appointment scheduled with [facility] in [place], [place] on 08/18/[address] Apodaca. The patient has been given specific instructions on how to get to the appointment. [facility] Discharge SummaryDISPOSITION:Mr. Ivelisse Schumacher is currently stable and tolerating all his medications. We are discharging the patient to home with family. The patient's prognosis is poor, as he initially did not want to take his medications and we are unsure if he will continue; however, if he is able to be compliant with his psychotropic medications and consistent with his outpatient followup, he should do very well. He has been encouraged to abstain from illicit drug useand to not discontinue any of his psychotropic medications without the guidance of his outpatient psychiatrist. The patient has also met with his community mental health social worker to obtain the appropriate followup paperwork. The importance of following through with this plan had been reviewed with the patient, with the understanding that compliance would be crucial to his recovery. He has been given the [facility] crisis hotline number and information about [facility] if he wishes to obtain therapy.Geneva Knutson MDLK/BEKAH/ADÁN/ISACC: 08/13/2017 18:32TD: 08/13/2017 21:44Job #: [id number]:Adina Goodrich MD Electronically Authenticated and Edited by:Deb Bianchi MD On 08/16/2017 03:31 PM [employer] [facility] Discharge SummaryDISPOSITION:Mr. Ivelisse Schumacher is currently stable and tolerating all his medications. We are discharging the patient to home with family. The patient's prognosis is poor, as he initially did not want to take his medications and we are unsure if he will continue; however, if he is able to be compliant with his psychotropic medications and consistent with his outpatient followup, he should do very well. He has been encouraged to abstain from illicit drug useand to not discontinue any of his psychotropic medications without the guidance of his outpatient psychiatrist. The patient has also met with his community mental health social worker to obtain the appropriate followup paperwork. The importance of following through with this plan had been reviewed with the patient, with the understanding that compliance would be crucial to his recovery. He has been given the [facility] crisis hotline number and information about [facility] if he wishes to obtain therapy.Geneva Knutson MDLK/BEKAH/ADÁN/SONADD: 08/13/2017 18:32TD: 08/13/2017 21:44Job #: [id number]:Adina Goodrich MD Electronically Authenticated and Edited by:Deb Bianchi MD On 08/16/2017 03:31 PM CSTElectronically Authenticated by:Adina Goodrich MD On 09/08/2017 05:53 PM CSTDSDischarge [id number] for patient [id number] [facility] 2017-09-08 17:53:18 [id number] T17:53:18 [facility] Psych EvalPATIENT NAME: IVELISSE SCHUMACHER PHYSICIAN: Deb Bianchi MD Admitted: MR NUMBER: [id number] DISCHARGED: Psych EvalPatient Name: IVELISSE SCHUMACHER Date ofService: Date of : 1990Clinician: Deb Bianchi MD User Field 1: JEncounter Visit: [facility] User Field 3: JRjai Goodrich [facility]:ATTENDING PHYSICIAN:Adina Goodrich MD.The patient was admitted on 08/05/2017 to the intake and 08/06/2017 to the inpatient psych floor.INFORMANTS:Patient, the patient's family including the abgxfe-ql-oyl and his mother as well as an EAD.CHIEF COMPLAINT:Per EAD, delusional, paranoid activity, behavior escalating to verbal aggression. Thinks Tate and sainae-xu-ruy wants to shoot and stab him.HISTORY OF PRESENT ILLNESS:Ivelisse Schumacher is a 26-year-old male with no past psychiatric history presenting for a 5-day history of paranoid delusions, confusion, labile mood,and verbal aggression in the context of psychosocial stressors (his lefthim 2 weeks ago and has been blocking any communication with her as well as his mother whom he lived for 1-2 weeks out of the month lost her home and hasbeen living in a hotel). His UDS is negative x9. The patient was brought [facility]by [facility] office and did not sign in voluntarily. On interview, the patient is positive for paranoid delusions stating "did I shoot someone?" The FBI is tapping my phone. He also asked if I was with immigration services and stated he was scared because of his illegal marriagewith a woman from [place]. He is also positive for confusion, thinking that he infected someone. He is positive for labile mood and moving from scared to irritable when talking about how he wanted to go home. When speaking withfamily, we got more of a timeline of events starting at [facility]. Familystarted to notice how he easily forgot things. Since then when he talked on the phone with his mom he was more easily distractible and absent minded. However, he came home about 7-10 days ago and was healthy enough to make a trip to [place] on the Wednesday before , 3 days prior. Then on 08/02/2017, , the patient stated he may have used some acid at [facility] though he said this was a joke quickly after saying that. On 08/03/2017, he showed up to his family's house. He was asking where his siblings were even though he knew they were in [facility]. He was down and crying and then became very aggressive and was labile. He did not recognize his family including his rygtzg-rg-xft and mother. He believes that his smebbi-bf-ryc was wanting to pull a gun on him and became verbally aggressive, screaming and yelling and slamming cabinet doors. He also stated [facility] Psych EvalPATIENT NAME: IVELISSE SCHUMACHER PHYSICIAN: Deb Bianchi MD Admitted: MR NUMBER: [id number] DISCHARGED: Psych EvalPatient Name: IVELISSE SCHUMACHER Date ofService: Date of : 1990Clinician: Deb Bianchi MD [facility]: [facility] User Field 3: Reva Goodrich [facility]:ATTENDING PHYSICIAN:Adina Goodrich MD.The patient was admitted on 08/05/2017 to the intake and 08/06/2017 to the inpatient psych floor.INFORMANTS:Patient, the patient's family including the gttluo-to-dbt and his mother as well as an EAD.CHIEF COMPLAINT:Per EAD, delusional, paranoid activity, behavior escalating to verbal aggression. Thinks Tate and kyowhb-ks-ptj wants to shoot and stab him.HISTORY OF PRESENT ILLNESS:Ivelisse Schumacher is a 26-year-old male with no past psychiatric history presenting for a 5-day history of paranoid delusions, confusion, labile mood,and verbal aggression in the context of psychosocial stressors (his lefthim 2 weeks ago and has been blocking any communication with her as well as his mother whom he lived for 1-2 weeks out of the month lost her home and hasbeen living in a hotel). His UDS is negative x9. The patient was brought inby [facility]'s office and did not sign in voluntarily. On interview, the patient is positive for paranoid delusions stating "did I shoot someone?" The FBI is tapping my phone. He also asked if I was with immigration services and stated he was scared because of his illegal marriagewith a woman from [place]. He is also positive for confusion, thinking that he infected someone. He is positive for labile mood and moving from scared to irritable when talking about how he wanted to go home. When speaking withfamily, we got more of a timeline of events starting at [facility]. Familystarted to notice how he easily forgot things. Since then when he talked on the phone with his mom he was more easily distractible and absent minded. However, he came home about 7-10 days ago and was healthy enough to make a trip to [place] on the Wednesday before , 3 days prior. Then on 08/02/2017, , the patient stated he may have [facility] some [facility] though he said this was a joke quickly after saying that. On 08/03/2017, he showed up to his family's house. He was asking where his siblings were even though he knew they were in [facility]. He was down and crying and then became very aggressive and was labile. He did not recognize his family including his wweimj-bp-non and mother. He believes that his euvdok-qb-vty was wanting to pull a gun on him and became verbally aggressive, screaming and yelling and slamming cabinet doors. He also stated Patient Name: IVELISSE SCHUMACHER "I am going to , I don't want to and started hitting himself on the head." He also stated "I had a meeting with president Karol" and became veryparanoid when the TV was on. The patient was taken to [facility] on 08/03/[address] he got a CT of the head showing no acute changes. A UDS wasnot done at that time. He said he became agitated. He went home and on 08/04/2017, he went back to the hospital and got a UDS that was negative at [facility]. Family states that nothing like this has ever happened before. Mom does state that in the last 2 months, he has been talking less with her and not paying as much attention to people when they talked to him; however, his hygiene has been regular. He has been taking care of himself and taking showers. He did not have an odor.On exam, his primary delusions are that I have got AIDS and STDs and I am dying. He thinks people are poisoning his food. He thinks that [facility] has put a tap on his phone. He thinks that his fwpwwp-bt-cpz is going to shoot him. He does state that he has a named Juanita from [place] and that he is afraidimmigration services are here. It turns out that he does have a named Juanita; however, she is from [facility]. She does not have her papers and family believes that she him just to get citizenship and has disappeared from his life in the last 2 weeks and blocked all communications.On psych review of systems, the patient denies any delusions saying all thesethings were just pranks. He refuses to sign in voluntarily. He denies any depressive symptoms. Denies any history of yaniv. Denies any current manic symptoms. Denies any anxiety. Denies any PTSD symptoms. Denies any AVH, suicidal ideations or homicidal ideations.PAST PSYCHIATRIC HISTORY:PAST DIAGNOSES:None.PSYCHIATRIST:None.THERAPIST:None.C URRENT PSYCHOTROPIC MEDICATIONS:None.PAST MEDICATION TRIALS:None.HOSPITALIZATIONS:None. Patient Name: IVELISSE SCHUMACHER "I am going to , I don't want to and started hitting himself on the head." He also stated "I had a meeting with president Karol" and became veryparanoid when the TV was on. The patient was taken to [facility] on 08/03/[address] where he got a CT of the head showing no acute changes. A UDS wasnot done at that time. He said he became agitated. He went home and on 08/04/2017, he went back to the hospital and got a UDS that was negative at [facility]. Family states that nothing like this has ever happened before. Mom does state that in the last 2 months, he has been talking less with her and not paying as much attention to people when they talked to him; however, his hygiene has been regular. He has been taking care of himself and taking showers. He did not have an odor.On exam, his primary delusions are that I have got AIDS and STDs and I am dying. He thinks people are poisoning his food. He thinks that [facility] has put a tap on his phone. He thinks that his hhbnda-re-kiu is going to shoot him. He does state that he has a named Juanita from [place] and that he is afraidimmigration services are here. It turns out that he does have a named Juanita; however, she is from [facility]. She does not have her papers and family believes that she him just to get citizenship and has disappeared from his life in the last 2 weeks and blocked all communications.On psych review of systems, the patient denies any delusions saying all thesethings were just pranks. He refuses to sign in voluntarily. He denies any depressive symptoms. Denies any history of yaniv. Denies any current manic symptoms. Denies any anxiety. Denies any PTSD symptoms. Denies any AVH, suicidal ideations or homicidal ideations.PAST PSYCHIATRIC HISTORY:PAST DIAGNOSES:None.PSYCHIATRIST:None.THERAPIST:None.C URRENT PSYCHOTROPIC MEDICATIONS:None.PAST MEDICATION TRIALS:None.HOSPITALIZATIONS:None. Patient Name: IVELISSE SCHUMACHER ATTEMPTS:None.SUBSTANCE USE:Alcohol. He does socially a drink or 2 a week. Tobacco, denies. Illicit drugs: He states did MDMA in May 2017. His last LSD use may have been on 08/02/2017, as he mentioned this to mother. 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 He also had a , who recently left him and blocked all communication with him. He believes she him just to get residency as she is from [place] and does not have papers. 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 However, when he is off which is usually 1-2 weeks out of the month, he lives with his mother in a hotel at [place] as they recently lost their house. 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 He does socially a drink or 2 a week. Tobacco, denies. Illicit drugs: He states did MDMA in May 2017. His last LSD use may have been on 08/02/2017, as he mentioned this to mother. 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 He also had a , who recently left him and blocked all communication with him. He believes she him just to get residency as she is from [place] and does not have papers. 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 However, when he is off which is usually 1-2 weeks out of the month, he lives with his mother in a hotel at [place] as they recently lost their house. 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.LEGAL HISTORY:None.EDUCATION:Highest level is high school.REVIEW OF SYSTEMS: Patient Name: IVELISSE SCHUMACHER : Denies.HEENT: Has congestion and cough for the last 3 days.CARDIOVASCULAR: Denies.RESPIRATORY: Denies.GASTROINTESTINAL: Denies.GENITOURINARY: Denies.MUSCULOSKELETAL: Has left-sided weakness since childhood and hand contracture of his left hand.NEUROLOGIC: See musculoskeletal above.ENDOCRINE: Denies.SKIN: Denies.PHYSICAL EXAMINATION:VITAL SIGNS: Temperature 98.1, pulse 113, respiratory rate 18, blood pressure 123/85.MENTAL STATUS EXAMINATION ON ADMISSION:He is a disheveled male who is uncooperative with the interview andeasily irritable. He states he does not want to be here. His speech is regular rate and rhythm and volume most of the time, but can become mumbled and pressured when he gets irritable. Mood "good, okay." Affect is constricted, blunted even. Perception, denies any audiovisual hallucinations, is positive for paranoid delusions and other delusions concerning him having STDs, being to a from [place]. Thought content denies any SI or HI. Thought process is disorganized and tangential. Insight is poor. Judgment is poor as he believes nothing is wrong and wantsto leave. His gait is normal. Cognition, he is alert and oriented x4. His abstraction, recall, memory and concentration are grossly intact. He has appropriate fund of knowledge per education level.LABORATORIES:CBC within normal limits. CMP: Sodium 133, low potassium 3.8, chloride 96, low carbon dioxide 26. BUN 10, creatinine 0.9, blood glucose 88. UDS negative x9. Urine alcohol undetectable. UA positive for ketones, positive for occult blood. He did have a CT head at an outside hospital, which was within normal limits per family. His UDS on 06/04/2017 was negative x9 at outside hospital. TSH 1.3. RPR nonreactive. Lipid profile within normal limits except for HDL 39, low.ASSESSMENT:Ivelisse Schumacher is a 26-year-old male with no past psychiatric history presenting for a 5-day history of paranoid delusions, confusion, labile mood and verbal aggression in the context of psychosocial stressors including his leaving him and his mother with whom he lives losing her house. His UDSis negative x9. His CT head was unremarkable. Family does state a period ofsome prodromal symptoms and schizophrenia including memory problems since Thanksgiving, being less social and distractible during interpersonal Patient Name: IVELISSE SCHUMACHER : Denies.HEENT: Has congestion and cough for the last 3 days.CARDIOVASCULAR: Denies.RESPIRATORY: Denies.GASTROINTESTINAL: Denies.GENITOURINARY: Denies.MUSCULOSKELETAL: Has left-sided weakness since childhood and hand contracture of his left hand.NEUROLOGIC: See musculoskeletal above.ENDOCRINE: Denies.SKIN: Denies.PHYSICAL EXAMINATION:VITAL SIGNS: Temperature 98.1, pulse 113, respiratory rate 18, blood pressure 123/85.MENTAL STATUS EXAMINATION ON ADMISSION:He is a disheveled male who is uncooperative with the interview andeasily irritable. He states he does not want to be here. His speech is regular rate and rhythm and volume most of the time, but can become mumbled and pressured when he gets irritable. Mood "good, okay." Affect is constricted, blunted even. Perception, denies any audiovisual hallucinations, is positive for paranoid delusions and other delusions concerning him having STDs, being to a from [place]. Thought content denies any SI or HI. Thought process is disorganized and tangential. Insight is poor. Judgment is poor as he believes nothing is wrong and wantsto leave. His gait is normal. Cognition, he is alert and oriented x4. His abstraction, recall, memory and concentration are grossly intact. He has appropriate fund of knowledge per education level.LABORATORIES:CBC within normal limits. CMP: Sodium 133, low potassium 3.8, chloride 96, low carbon dioxide 26. BUN 10, creatinine 0.9, blood glucose 88. UDS negative x9. Urine alcohol undetectable. UA positive for ketones, positive for occult blood. He did have a CT head at an outside hospital, which was within normal limits per family. His UDS on 06/04/2017 was negative x9 at outside hospital. TSH 1.3. RPR nonreactive. Lipid profile within normal limits except for HDL 39, low.ASSESSMENT:Ivelisse Schumacher is a 26-year-old male with no past psychiatric history presenting for a 5-day history of paranoid delusions, confusion, labile mood and verbal aggression in the context of psychosocial stressors including his leaving him and his mother with whom he lives losing her house. His UDSis negative x9. His CT head was unremarkable. Family does state a period ofsome prodromal symptoms and schizophrenia including memory problems since Thanksgiving, being less social and distractible during interpersonal Patient Name: IVELISSE SCHUMACHER . However, his hygiene has remained intact. He takes care of himself. He is positive for paranoid delusions of the FBI tapping his phone,him having AIDS and STDs and thinking that he is going to , people poisoning his food, his sister going to kill him. He denies any audio or visual hallucinations currently and does not seem like he is internally responding. He does have disorganized thought and disorganized behavior as he will go into other patient's room and lie on the bed and refuse to move when staff tries to redirect. He also tried to take the urine sample out of the nurse's hand and had to be ordered emergency medications for this. Due the acute onset of psychosis w/ no prior past psych history, on our differential we are considering brief psychotic disorder, substance induced psychotic disorder, schizophreniform disorder and psychotic disorder due to another medical condition. This is most likely brief psychotic disorder given the temporal relationship of the onset of stressors and symptoms. Though UDS is negative for 9 substances, he has a questionable history of recent drug use including LSD and MJ that may have been lace with unknown substances. Therefore a substance induced psychotic disorder can not be definitively ruled out at this time. Paranoid delusions of FBI taping phone and family members out to hurt him lasting only 5 days does not meet criteria for Schizophreniform at this time. If symptoms progress and persist longer than one month, this diagnosis will need to be reconsidered. Given his unremarkable CBC, CMP, TSH, RPR, UA and CT head, [employer] infection, neurosyphilis, brain tumor, metabolic abnormalities, nutritional deficiencies and thyroid disorders are less likely. 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 Will order HIV screening test, phosphate levels and ceruloplasmin to rule out HIV, parathyroid issues and Deven's disease. 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 Legal history none. Highest education level, high school. Family members include Alyssa Cerda, his [id number], her number is [phone]. His mother is Ann Schumacher, her number is [phone] from [facility]. She prefers that we speak with [id number] as she states that herlevel of [place] can make it hard to communicate.PLAN:Ivelisse Schumacher will be admitted to Dr. Goodrich's service on the [facility] Inpatient Unit and placed on suicide, elopement, standard PICU precautions, and unit restriction. He will be started on Risperdal 2 mg p.o. at bedtime for his diagnosis of psychosis of unknown origin as of now. He will also be started on Vistaril 50 mg p.o. q. 6 hours p.r.n. for anxiety and Trazodone 50mg p.o. at bedtime p.r.n. for insomnia.Internal Medicine has been consulted for current medical needs. He will be monitored daily while in the unit. We plan to discharge to home with family. He will be encouraged to attend all group therapy sessions to participate inhis treatment, to bring any concerns to the attention of the treatment team.Deb Bianchi MD Patient Name: IVELISSE SCHUMACHER . However, his hygiene has remained intact. He takes care of himself. He is positive for paranoid delusions of the FBI tapping his phone,him having AIDS and STDs and thinking that he is going to , people poisoning his food, his sister going to kill him. He denies any audio or visual hallucinations currently and does not seem like he is internally responding. He does have disorganized thought and disorganized behavior as he will go into other patient's room and lie on the bed and refuse to move when staff tries to redirect. He also tried to take the urine sample out of the nurse's hand and had to be ordered emergency medications for this. Due the acute onset of psychosis w/ no prior past psych history, on our differential we are considering brief psychotic disorder, substance induced psychotic disorder, schizophreniform disorder and psychotic disorder due to another medical condition. This is most likely brief psychotic disorder given the temporal relationship of the onset of stressors and symptoms. Though UDS is negative for 9 substances, he has a questionable history of recent drug use including LSD and MJ that may have been lace with unknown substances. Therefore a substance induced psychotic disorder can not be definitively ruled out at this time. Paranoid delusions of FBI taping phone and family members out to hurt him lasting only 5 days does not meet criteria for Schizophreniform at this time. If symptoms progress and persist longer than one month, this diagnosis will need to be reconsidered. Given his unremarkable CBC, CMP, TSH, RPR, UA and CT head, [employer] infection, neurosyphilis, brain tumor, metabolic abnormalities, nutritional deficiencies and thyroid disorders are less likely. 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 Will order HIV screening test, phosphate levels and ceruloplasmin to rule out HIV, parathyroid issues and Deven's disease. 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 Legal history none. Highest education level, high school. Family members include Alyssa Cerda, his [id number]-pyn, her number is [phone]. His mother is Ann Schumacher, her number is [phone] from [facility]. She prefers that we speak with [id number] as she states that herlevel of [place] can make it hard to communicate.PLAN:Ivelisse Schumacher will be admitted to Dr. Goodrich's service on the [facility] Inpatient Unit and placed on suicide, elopement, standard PICU precautions, and unit restriction. He will be started on Risperdal 2 mg p.o. at bedtime for his diagnosis of psychosis of unknown origin as of now. He will also be started on Vistaril 50 mg p.o. q. 6 hours p.r.n. for anxiety and Trazodone 50mg p.o. at bedtime p.r.n. for insomnia.Internal Medicine has been consulted for current medical needs. He will be monitored daily while in the unit. We plan to discharge to home with family. He will be encouraged to attend all group therapy sessions to participate inhis treatment, to bring any concerns to the attention of the treatment team.MD Adina Knutson MD Michael M. Stone, MD Patient Name: IVELISSE SCHUMACHER Dictated: 08/07/2017Date 08/07/2017Transcribed:Linsey #: [id number]:Adina Goodrich MD Edited by:Deb Bianchi MD On 08/10/2017 03:03 PM CSTElectronically Authenticated and Edited by:Deb Bianchi MD On 08/16/2017 04:36 PM CSTPatient Name: IVELISSE SCHUMACHER Dictated: 08/07/2017Date 08/07/2017Transcribed:CARLOS/CADEN/Kateyb #: [id number]:Adina Goodrich MD Edited by:Deb Bianchi MD On 08/10/2017 03:03 PM CSTElectronically Authenticated and Edited by:Deb Bianchi MD On 08/16/2017 04:36 PM CSTElectronically Authenticated by:Adina Goodrich MD On 09/08/2017 05:53 PM [id number] for patient [id number]:53:18 [facility] 2017-08-31 21:43:11 [id number] T21:43:11 [facility] [place] History and PhysicalPATIENT NAME: IVELISSE SCHUMACHER PHYSICIAN: Shar Ambriz MD Admitted: MR NUMBER: [id number] DISCHARGED: DATE OF SERVICE: 08/07/2017TIME SEEN: Approximately around 1355.REASON FOR EVALUATION:Medical management.REQUESTING PHYSICIAN:ADAM RamirezICTATING PHYSICIAN:Shar Ambriz MD.HISTORY OF PRESENT ILLNESS:This is a 26-year-old male, who has no known past medical problems; however, there is a document here with the patient's [id number] and mother with a history. Apparently, he does not have any chronic medical conditions, thoughhas a weakened left side and retracted hand on the left side secondary to what appears to be some form of traumatic brain injury as a child. He has not had any surgeries in the past, either. It appeared that around Thanksgiving time, he started to have issues with memory. That was a noticeable by family. 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 However, the last 5 days,it appears that the patient had become even more as he was starting to appearconfused and becoming more mood labile. Apparently, he did recognize some ofthe patient's family members. He was becoming more aggressive with family members. He was apparently very paranoid about dying and apparently meeting President Karol. He had delusions of this. Apparently, he was evaluated at an outlying facility twice and was released home. He apparently had a negative urine drug screen during one of his hospital ER stays. Apparently, this is a new issue for him. Currently, he has not been hospitalized, because of his decompensation he was brought into our hospital under psychiatrist care here.Currently, he is very much slow with his thought process, somewhat confused. His latency speech was quite noted and his thought process is very altered. He was not engaging during my interview with him. Apparently, he has been fixated on having SCDs tested for, however, he could not endorse any sort of complex history taking with me.REVIEW OF SYSTEMS:Other than what is documented limited secondary to his presumed psychotic state, otherwise, limited 10-point review of systems asked negative.HOME MEDICATIONS:Apparently none.PAST MEDICAL HISTORY:As stated above.PAST SURGICAL HISTORY:Patient Name: IVELISSE SCHUMACHER .ALLERGIES:NONE KNOWN.SOCIAL HISTORY:Apparently, he smokes cigarettes. Denies alcohol use. According to this telephone note in the chart he may be using drugs, though his urine drug screen was negative when he came in. There may be concern that she may be to a woman from another country, he has had a convenience with.FAMILY HISTORY:Unknown as the patient is unable to give me this history.PHYSICAL EXAMINATION:VITAL SIGNS: Temperature 99.9 degrees Fahrenheit, heart rate 120, respiratory rate 20, blood pressure 123/78, and pulse ox 98% on room air.GENERAL: This patient is lying in bed, appears comfortable, in no acute distress, though appears to be internally preoccupied and engaging with my interview with him.HEENT: Mucous membranes are moist. Normocephalic, atraumatic. EOMI.NECK: Midline supple. No adenopathy. No JVD.CHEST: Clear to auscultation bilaterally. No wheezes, rhonchi or rales.CARDIOVASCULAR SYSTEM: S1, S2 audible. Rhythm is regular. No gallops.ABDOMEN: Soft, nontender, normoactive bowel sounds, nondistended.GENITOURINARY: Deferred.BACK: No spinal or paraspinal tenderness. No CVA tenderness. Good range ofmotion, otherwise:EXTREMITIES: No cyanosis, clubbing, or edema. Distal extremities are warm.NEUROLOGIC: Limited secondary to his confused state, however, he moves all 4extremities. His tongue is midline, he appears to have a contracted left upper extremity and his left wrist is preferentially hyperflexed, somewhat contracted. He appears to have a little loss of head of sales promotion on the left side compared to the right.LABORATORY DATA:His urine drug screen was negative here. No alcohol was picked up in the system.White count 7.7, hemoglobin 16.6, platelet count 184,000.Sodium 133, chloride of 96, BUN of 10, creatinine 0.9.LDL calculated at 124. RPR nonreactive. Urinalysis was negative for infection.ASSESSMENT AND PLAN:Patient Name: IVELISSE SCHUMACHER is a 26-year-old male, who appears to have from what it seems like a newonset psychosis of unclear etiology. He may be developing a new organic mooddisorder, which is being worked up by the psychiatric service. At this point, he is not manifesting much in the way of any sort of neurologic signs to suggest any sort of neurodegenerative disorder at this point, his left upper extremity findings appear to be chronic from his history of a traumaticbrain injury.At this point, we will defer treatment to the psychiatric service. If he is able to give us any more relevant information and if there are any new findings from internal medicine standpoin, please feel free to give us a calland we will be happy to reevaluate this patient.MOIRA Garcia/VENDD: 08/07/2017 14:18TD: 08/07/2017 17:40Job #: [id number] Authenticated by:Shar Ambriz MD On 08/11/2017 11:34 AM CSTHPHistory and physical [id number] for patient [id number]:43:11 [facility]
[2023-07-16 23:48] LABS: Absolute Lymphocytes (CBC) 3.7 K/uL (0.7-4.9); Hematocrit 50.3 % (39.6-49.0); Lymphocytes % 19.9 % (15.3-44.8); MPV 8.2 fL (7.6-11.3); Platelets 240 thou/uL (152-406); RBC Red Blood Cell Count 5.65 M/uL (4.33-5.43)
[2023-07-17 00:10] LABS: Magnesium 1.9 mg/dL (1.6-2.4); Troponin High Sensitivity 6.2 pg/mL (<58.9)
[2023-07-17] MEDS ORDERED: NA CHLORIDE 0.9% 1,000 ML ONE (00:58)
--- NOTE | 2023-07-17 01:14 | ER ---
Nurse's Notes [facility] Name: Brad Recinos Jr Age: 32 yrs Sex: Male : 1990 Arrival Date: 07/16/2023 Time: 21:35 Bed 17 Private MD: Diagnosis: Edema, unspecified;Shortness of breath;Elevated white blood cell count, unspecified Presentation: 07/16 21:56 Chief complaint: Patient states: I have been having shortness of breath, fatigue, and a kd3 cough for the past couple of weeks. I haven't been around anyone who has been sick but last week I was in [place] and I felt like I had a fever but I had no way to check. Today I have noticed swelling in my ankles and I have felt nauseous. I hope its not diabetes. Coronavirus screen: Vaccine status: unknown. Ebola Screen: No symptoms or risks identified at this time. Initial Sepsis Screen: Does the patient meet any 2 criteria? No. Patient's initial sepsis screen is negative. Does the patient have a suspected source of infection? No. Patient's initial sepsis screen is negative. Risk Assessment: Do you want to hurt yourself or someone else? Patient reports no desire to harm self or others. Onset of symptoms was July 16, 2023. 21:56 Method Of Arrival: Ambulatory kd3 21:56 Acuity: ANABELLE 3 kd3 Triage Assessment: 21:58 General: Appears in no apparent distress. Behavior is calm, cooperative. Pain: Denies kd3 pain. Respiratory: Reports shortness of breath on exertion Onset: The symptoms/episode began/occurred at an unknown time. the patient has moderate shortness of breath. Historical: - PMHx: 21:58 fell on head as a baby; TBI; kd3 - PSHx: 21:58 Appendectomy; Pilonidal Cyst; kd3 - Immunization history:: Adult Immunizations up to date. - Social history:: Smoking status: Patient reports the use of cigarette tobacco products, smokes two packs cigarettes per day. Screenin:00 [facility] ED Fall Risk Assessment (Adult) History of falling in the last 3 months, ha1 including since admission No falls in past 3 months (0 pts) Confusion or Disorientation No (0 pts) Intoxicated or Sedated No (0 pts) Impaired Gait No (0 pts) Mobility Assist Device Used No (0 pt) Altered Elimination No (0 pt) Score/Fall Risk Level 0 - 2 = Low Risk Oriented to surroundings, Maintained a safe environment, Educated pt \\T\\ family on fall prevention, incl call for assistance when getting out of bed, Hourly rounding (assess needs \\T\\ fall precautionary measures) done. Abuse screen: Denies threats or abuse. Denies injuries from another. Nutritional screening: No deficits noted. Tuberculosis screening: No symptoms or risk factors identified. Assessment: 22:00 General: Appears comfortable, Behavior is calm, cooperative. Pain: Denies pain. Neuro: ha1 Level of Consciousness is awake, alert, obeys commands, Oriented to person, place, time, situation. Cardiovascular: Reports shortness of breath, Capillary refill Patient's skin is warm and dry. Pulses are all present. Rhythm is sinus rhythm. Cardiovascular:. Respiratory: Reports shortness of breath at rest Airway is patent Respiratory effort is even, unlabored, Respiratory pattern is regular, symmetrical, Breath sounds are clear bilaterally. GI: No signs and/or symptoms were reported involving the gastrointestinal system. Derm:. Musculoskeletal: Circulation, motion, and sensation intact. Musculoskeletal: Swelling present in right leg. 22:02 Reassessment: pt. states " I need to go smoke outside you will have to wait on the IV". ha1 23:00 Reassessment: Patient and/or family updated on plan of care and expected duration. Pain ha1 level reassessed. Patient is alert, oriented x 3, equal unlabored respirations, skin warm/dry/pink. 07/17 00:00 Reassessment: Patient and/or family updated on plan of care and expected duration. Pain ha1 level reassessed. Patient is alert, oriented x 3, equal unlabored respirations, skin warm/dry/pink. 01:00 Reassessment: pt. requesting to be discharged. pt. refused to complete the plan of ha1 care. Notified care provider. Vital Signs: 07/16 21:56 BP 118 / 68; Pulse 91; Resp 16; Temp 98.5(O); Pulse Ox 97% on R/A; Weight 161.03 kg; kd3 Height 6 ft. 0 in. ; 22:15 BP 126 / 76; Pulse 93; Resp 17 S; Pulse Ox 95% on R/A; ha1 23:00 BP 118 / 65; Pulse 90; Resp 18 S; Pulse Ox 98% on R/A; ha1 07/17 00:00 BP 121 / 73; Pulse 97; Resp 18 S; Pulse Ox 96% on R/A; ha1 01:00 BP 115 / 76; Pulse 98; Resp 18 S; Pulse Ox 95% on R/A; ha1 07/16 21:56 Body Mass Index 48.15 (161.03 kg, 182.88 cm) kd3 ED Course: 07/16 21:39 Patient arrived in ED. es 21:43 Joce White PA is PHCP. cp 21:43 Joce Bautista MD is Attending Physician. cp 21:49 Patient has correct armband on for positive identification. Placed in gown. Bed in low ha1 position. Call light in reach. Side rails up X 1. Adult w/ patient. 21:58 Triage completed. kd3 21:58 Arm band placed on right wrist. kd3 22:47 Barbara Cortes, RN is Primary Nurse. ha1 23:06 US Extremity Venous W Compression Brooks In Process Unspecified. EDMS 23:41 Basic Metabolic Panel Sent. km8 23:41 CBC with Diff Sent. km8 23:41 D-Dimer Sent. km8 23:41 Magnesium Sent. km8 23:41 NT PRO-BNP Sent. km8 23:41 Troponin HS Sent. km8 23:42 Inserted saline lock: 20 gauge in right antecubital area, using aseptic technique. km8 Blood collected. 23:46 XRAY Chest (1 view) In Process Unspecified. EDMS 07/17 01:29 Provided Education on: the need to wait and complete plan of care.. ha1 01:29 No provider procedures requiring assistance completed. IV discontinued, intact, ha1 bleeding controlled, No redness/swelling at site. Pressure dressing applied. Administered Medications: 00:55 Drug: NS 0.9% IV 1000 ml IV at 1 bolus Per protocol; 1000 mL bolus Route: IV; Rate: 1 ha1 bolus; Site: right antecubital; 01:30 Follow up: Response: No adverse reaction; IV Status: Completed infusion; IV Intake: ha1 800ml Medication: 00:32 VIS not applicable for this client. ha1 Intake: 01:30 IV: 800ml; Total: 800ml. ha1 Outcome: 01:14 Discharge ordered by . cp 01:29 Discharged to home ambulatory, with family, ha1 01:29 Discharged to home ambulatory, with family, Condition: stable 01:29 Discharge instructions given to patient, family, Instructed on discharge instructions, follow up and referral plans. Demonstrated understanding of instructions, follow-up care, 01:30 Patient left the ED. ha1 Signatures: Dispatcher [employer] Katty Montoya Corey, PA PA cp Doucette, Kyli, RN RN kd3 Barbara Cortes RN RN ha1 Janae Kinney RN RN km8
--- NOTE | 2023-07-17 01:15 | EDPHYS ---
Physician Documentation [facility] Name: Brad Recinos Jr Age: 32 yrs Sex: Male : 1990 Arrival Date: 07/16/2023 Time: 21:35 Bed 17 Private MD: ED Physician Joce Bautista HPI: 07/16 22:30 This 32 yrs old Male presents to ER via Ambulatory with complaints of Shortness Of cp Breath, Ankle Swelling, FATIGUE. 22:30 The patient has shortness of breath with light activity. Onset: The symptoms/episode cp began/occurred gradually. Associated signs and symptoms: Pertinent positives: swelling of ankles with left worse than right, Pertinent negatives: chest pain, fever. Severity of symptoms: in the emergency department the symptoms are unchanged despite home interventions. 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 - Social history:: Smoking status: Patient reports the use of cigarette tobacco products, smokes two packs cigarettes per day. ROS: 22:35 Cardiovascular: Positive for edema, Negative for chest pain, palpitations, cp 22:35 Eyes: Negative for injury, pain, redness, and discharge, cp 22:35 Constitutional: Negative for body aches, chills, fever, poor PO intake, 22:35 ENT: Negative for drainage from ear(s), ear pain, sore throat, difficulty swallowing, difficulty handling secretions, 22:35 Respiratory: Positive for shortness of breath, Negative for wheezing, 22:35 Abdomen/GI: Negative for abdominal pain, vomiting, diarrhea, constipation, 22:35 Neuro: Negative for altered mental status, dizziness, headache, numbness, weakness, 22:35 All other systems are negative, Exam: 22:40 Constitutional: The patient appears in no acute distress, alert, awake, cp non-diaphoretic, non-toxic, well developed, well nourished, 22:40 Head/Face: Normocephalic, atraumatic. cp 22:40 Eyes: Periorbital structures: appear normal, Conjunctiva: normal, no exudate, no injection, Sclera: no appreciated abnormality, Lids and lashes: appear normal, bilaterally, 22:40 ENT: External ear(s): are unremarkable, Nose: is normal, Mouth: Lips: moist, Oral mucosa: pink and intact, moist, Posterior pharynx: is normal, airway is patent, no erythema, no exudate, 22:40 Neck: ROM/movement: is normal, is supple, without pain, no range of motions limitations, 22:40 Chest/axilla: Inspection: normal, 22:40 Cardiovascular: Rate: normal, Rhythm: regular, Edema: pedal edema, that is mild, ankle edema, that is mild, JVD: is not appreciated, 22:40 Respiratory: the patient does not display signs of respiratory distress, Respirations: normal, no use of accessory muscles, no retractions, labored breathing, is not present, Breath sounds: decreased breath sounds, are not appreciated, stridor, is not appreciated, wheezing: is not appreciated, 22:40 Abdomen/GI: Inspection: obese Palpation: abdomen is soft and non-tender, in all quadrants, 22:40 Back: pain, is absent, ROM is normal, 22:40 Skin: cellulitis, is not appreciated, no rash present. 22:40 Neuro: Orientation: to person, place \T\ time. Mentation: is normal, Motor: moves all fours, strength is normal, Sensation: is normal, Gait: is steady, at a normal pace, Vital Signs: 21:56 BP 118 / 68; Pulse 91; Resp 16; Temp 98.5(O); Pulse Ox 97% on R/A; Weight 161.03 kg; kd3 Height 6 ft. 0 in. ; 22:15 BP 126 / 76; Pulse 93; Resp 17 S; Pulse Ox 95% on R/A; ha1 23:00 BP 118 / 65; Pulse 90; Resp 18 S; Pulse Ox 98% on R/A; ha1 12 00:00 BP 121 / 73; Pulse 97; Resp 18 S; Pulse Ox 96% on R/A; ha1 01:00 BP 115 / 76; Pulse 98; Resp 18 S; Pulse Ox 95% on R/A; ha1 07/16 21:56 Body Mass Index 48.15 (161.03 kg, 182.88 cm) kd3 MDM: 07/16 21:50 Patient medically screened. [facility] 07/17 01:13 Data reviewed: vital signs, nurses notes, lab test result(s), EKG, radiologic studies, cp plain films, ultrasound. 01:13 Differential diagnosis: CHF exacerbation, Myocardial Infarction pneumonia, pulmonary cp edema, Pulmonary Embolism Sepsis DVT. Counseling: I had a detailed discussion with the patient and/or guardian regarding the historical points, exam findings, and any diagnostic results supporting the discharge/admit diagnosis, lab results, radiology results, to return to the emergency department if symptoms worsen or persist or if there are any questions or concerns that arise at home. Refusal of service: The patient/guardian displays adequate decision making capability and despite a detailed discussion of alternatives, benefits, risks, and consequences refuses: CT Scan. ED course: Patient refuses CT of chest at this time. Understands may return to ED at anytime for reevaluation. Discussed smoking cessation, elevated WBC and need for f/u . 07/16 22:23 Order name: Basic Metabolic Panel; Complete Time: 00:23 cp 07/16 22:23 Order name: CBC with Diff; Complete Time: 00:23 cp 07/16 22:23 Order name: D-Dimer; Complete Time: 00:23 cp 07/16 22:23 Order name: Magnesium; Complete Time: 00:23 cp 07/16 22:23 Order name: NT PRO-BNP; Complete Time: 00:23 cp 07/16 22:23 Order name: Troponin HS; Complete Time: 00:23 cp 07/16 22:23 Order name: XRAY Chest (1 view) cp 07/16 22:23 Order name: US Extremity Venous W Compression Brooks cp 07/16 22:23 Order name: EKG; Complete Time: 22:24 cp 07/16 22:23 Order name: Cardiac monitoring; Complete Time: 22:47 cp 07/16 22:23 Order name: EKG - Nurse/Tech; Complete Time: 22:47 cp 07/16 22:23 Order name: IV Saline Lock; Complete Time: 23:41 cp 07/16 22:23 Order name: Labs collected and sent; Complete Time: 23:41 cp 07/16 22:23 Order name: O2 Per Protocol; Complete Time: 23:41 cp 07/16 22:23 Order name: O2 Sat Monitoring; Complete Time: 23:41 cp Administered Medications: 00:55 Drug: NS 0.9% IV 1000 ml IV at 1 bolus Per protocol; 1000 mL bolus Route: IV; Rate: 1 ha1 bolus; Site: right antecubital; 01:30 Follow up: Response: No adverse reaction; IV Status: Completed infusion; IV Intake: ha1 800ml Disposition Summary: 07/17/23 01:14 Discharge Ordered Notes: Location: Home cp Problem: new cp Symptoms: are unchanged cp Condition: Stable cp Diagnosis - Edema, unspecified cp - Shortness of breath cp - Elevated white blood cell count, unspecified cp Followup: cp - With: Private Physician - When: 2 - 3 days - Reason: Recheck today's complaints Discharge Instructions: - Discharge Summary Sheet cp - Edema cp - Shortness of Breath, Adult cp - Aspirin and Your Heart cp - Leukocytosis cp - Peripheral Edema cp - How to Use Compression Stockings cp Forms: - Medication Reconciliation Form cp - Thank You Letter cp - Antibiotic Education cp - Prescription Opioid Use cp - Patient Portal Instructions cp - Leadership Thank You Letter cp Signatures: Dispatcher [employer] Joce Chan MD MD cha Page, Corey PA PA cp Liliya Ugarte, RN RN kd3 Barbara Cortes, AUGUST RN ha1 Corrections: (The following items were deleted from the chart) 01:27 00:24 Chest For PE Angio+CT.RAD.BRZ ordered. DECLAN MANRIQUEZ
[2023-07-17 01:59] VITALS: TEMP 98.5
[2023-07-17 02:15] VITALS: BP 121/73; O2SAT 96
--- NOTE | 2023-07-19 15:48 | RAD REPORT ---
EXAM DESCRIPTION: RAD - Chest Single View - 07/16/2023 11:43 pm CLINICAL HISTORY: SOB COMPARISON: None. FINDINGS: Single frontal radiograph view of the chest. Large body habitus. Cardiomediastinal silhouette: Normal size and contour. Lungs: No consolidation, pneumothorax, or pleural effusion. Bones: No acute osseous abnormality. Upper abdomen: No abnormality identified. IMPRESSION: 1. No acute pulmonary process identified. Electronically signed by: Thee Feng DO 07/16/2023 11:52 PM PROCESS CONTROL MANAGER M Due to temporary technical issues with the PACS/Fluency reporting system, reports are being signed by the in house radiologist without review as a courtesy to ensure prompt reporting. The interpreting r adiologist is fully responsible for the content of the report.
--- NOTE | 2023-07-19 15:50 | RAD REPORT ---
EXAM DESCRIPTION: US - Extrem Venous W Compress Brooks - 07/16/2023 11:04 pm CLINICAL HISTORY: 32 years Male; SWELLING TECHNIQUE: Spectral analysis and color/grayscale sonographic images of both legs were obtained utili zing a high-frequency linear array transducer supplemented with color Doppler, compression and augmen tation techniques. COMPARISON: None. FINDINGS: Right leg veins: Common femoral: normal Greater saphenous: normal Superficial femoral: normal Popliteal: normal Calf Veins: normal Left leg veins: Common femoral: normal Greater saphenous: normal Superficial femoral: normal Popliteal: normal Calf Veins: normal IMPRESSION: 1. No sonographic evidence for lower extremity deep venous thrombosis in either leg. Electronically signed by: Adonay Amador MD 07/16/2023 11:38 PM CALL CENTER CONSULTANT Due to temporary technical issues with the PACS/Fluency reporting system, reports are being signed by the in house radiologist without review as a courtesy to ensure prompt reporting. The interpreting r adiologist is fully responsible for the content of the report.
--- NOTE | 2023-07-20 13:55 | EKG ---
Test Date: 2023-07-16 Test Time: 22:42:11 Soil Surveyor: SMILEY MEASUREMENT RESULTS: Intervals: Rate: 93 RI: 146 QRSD: 98 QT: 352 QTc: 437 Wiseman: P: 67 RI: 146 QRS: 37 T: 47 INTERPRETIVE STATEMENTS: Normal sinus rhythm Normal ECG Compared to ECG 05/06/2023 05:00:02 No significant changes Electronically Signed On 07-20-23 13:42:56 CLAIM ADMINISTRATOR by Jose Luis Ferguson
== END 2023-07-17 01:30 | disposition home or self-care (01) ==
LOC: ER 21:35
DX: R06.02 Shortness of breath (principal); R60.9 Edema, unspecified; D72.829 Elevated white blood cell count, unspecified; F17.210 Nicotine dependence, cigarettes, uncomplicated
CPT/HCPCS: 36415; 71045; 80048; 83735; 83880; 84484; 85025; 85379; 93005; 93970; 96360; 99284; J7030

== ENCOUNTER → 2023-08-16 | Emergency (ER) | payer SELFPAY ==
[~2023-08-16] MED LIST: ALBUTEROL 2.5 MG/3 ML NEB SOL ONE; AZITHROMYCIN 250 MG TAB ONE; FAMOTIDINE 20 MG TAB ONE; PROMETHAZINE 25 MG TABLET ONE; predniSONE 20 MG TAB ONE
--- OUTSIDE RECORDS SUMMARY | 2023-08-16 19:59 | XMS REPORT | Continuity of Care Document ---
Author Name Unknown Address [address] [facility] [place] [address] [facility] thconnect Address [address] [place] [address] [place] [address] Care Team Providers Care Technical Sourcing Recruiter Name Role Phone PCP, PATIENT DOES NOT HAVE A Primary Care Physic clinton Unavailable MUMTAZ BALLESTEROS Attending Clinician Unav Mumtaz Covington MD Attending Clinician + SHEILA HILLMAN Attending Clinician Unavailab Sheila Rodriguez DO Attending Clinician [phone] Sukhjinder Diaz DO Attending Clinician [phone] SUKHJINDER DIAZ Attending Clinician Unavailable Payers Payer Name Policy Type Policy Number Effective Date Expirati on Date Source MEDICAID PENDING PENDING 2023 00:00:00 Allergies, Adverse Reactions, Alerts Allergy Name Allergy Type Status Severity Reaction(s) Onset Date Inactive Date Treating Clinician Comments Source NO KNOWN ALLERGIE S Drug Class Active [facility] Social History Social Habit Start Date Stop Date Quantity Comments Source Sexual orientation U [facility] Sex Assigned At 1990 00:00[birth year]00 1990 00:00:00 [facility] Smoking Status Start Date Stop Date Source Tobacco smoking consumption unknown [facility] Medications Ordered Medication Name Filled Medication Name Start Date Stop Date Current Medication? Ordering Clinician Indication Dosage Frequency Signature (SIG) Comments Components Source maalox:diph enhydrAMINE :lidocaine 2 % viscous 1:1:1 ([facility]) oral suspension 15 mL 2022-08 03:30: 00 05-26 03:23 :00 No 15mL 15 mL, Oral, ONCE, 1 dose, On Wed05/25/23 at 2230, Routine [facility] maalox:diph enhydrAMINE :lidocaine 2 % viscous 1:1:1 ([facility] oral suspension 15 mL 2022-08 20:15: 00 05-21 20:15 :00 No 15mL 15 mL, Oral, ONCE, 1 dose, On Wed05/21/23 at 1515, Routine [facility] omeprazole 40 mg capsule 2022-08 00:00: 00 Yes [id number] 40mg Take 1 capsule by mouth in the morning. [facility] omeprazole 40 mg capsule 2022-08 00:00: 00 Yes [id number] 40mg Take 1 capsule by mouth in the morning. [facility] Vital Signs Vital Name Observation Time Observation Value Comments S eligio Systolic blood pressure 2023-05-26 03:47:00 129 mm[Hg] [facility] Diastolic blood pressure 2023-05-26 03:47:00 76 mm[Hg] [facility] Heart rate 2023-05-26 03:47:00 75 /min [facility] Body temperature 2023-05-26 03:47:00 37.28 Marcela [facility] Respiratory rate 2023-05-26 03:47:00 16 /min [facility] Oxygen saturation in Arterial blood by Pulse oximetry 2023-05-26 03:47:00 95 /min [facility] Body height 2023-05-26 02:24:00 182.9 cm [facility] Body weight 2023-05-26 02:24:00 154.223 kg [facility] BMI 2023-05-26 02:24:00 46.11 kg/m2 [facility] Systolic blood pressure 2023-05-21 21:26:06 128 mm[Hg] [facility] Diastolic blood pressure 2023-05-21 21:26:06 94 mm[Hg] [facility] Heart rate 2023-05-21 21:26:06 86 /min [facility] Body temperature 2023-05-21 21:26:06 37.06 Marcela [facility] Respiratory rate 2023-05-21 21:26:06 18 /min [facility] Oxygen saturation in Arterial blood by Pulse oximetry 2023-05-21 21:26:06 100 /min [facility] Body height 2023-05-21 19:31:00 182.9 cm [facility] Body weight 2023-05-21 19:31:00 156.491 kg [facility] BMI 2023-05-21 19:31:00 46.79 kg/m2 [facility] Systolic blood pressure 2023-05-21 16:40:00 128 mm[Hg] [facility] Diastolic blood pressure 2023-05-21 16:40:00 95 mm[Hg] [facility] Heart rate 2023-05-21 16:40:00 92 /min [facility] 2023-05-21 16:40:00 37 Marcela [facility] Respiratory rate 2023-05-21 16:40:00 18 /min [facility] Body height 2023-05-21 16:40:00 182.9 cm [facility] Body weight 2023-05-21 16:40:00 156.627 kg [facility] BMI 2023-05-21 16:40:00 46.83 kg/m2 [facility] Oxygen saturation in Arterial blood by Pulse oximetry 2023-05-21 16:40:00 100 /min [facility] Procedures Procedure Date / Time Performed Performing Clinicia n Source CONSENT/REFUSAL FOR DIAGNOSIS AND TREATMENT 2023-05-26 02:02:36 Doctor Unassigned, [place] [facility] ASSIGNMENT OF BENEFITS 2023-05-21 20:39:33 Docto r Unassigned, [place] [facility] CONSENT/REFUSAL FOR DIAGNOSIS AND TREATMENT 2023-05-21 19:14:42 Doctor Unassigned, [place] [facility] NOTICE OF PRIVACY PRACTICES 2023-05-21 16:34:41 Doctor Unassigned, [place] [facility] CONSENT/REFUSAL FOR DIAGNOSIS AND TREATMENT 2023-05-21 16:30:50 Doctor Unassigned, [place] [facility] Encounters Start Date/Time End Date/Time Encounter Type Admission Type Attending [facility] Care Department Encounter ID Source 2023-05-25 21:28:00 2023-05-25 22:49:00 Emergency X MUMTAZ BALLESTEROS [facility] ERT [id number] [facility] 2023-05-25 21:28:00 2023-05-25 22:49:00 Emergency Mumtaz Ballesteros [facility] [id number] [facility] 2023-05-21 14:33:00 2023-05-21 16:29:00 Emergency X SHEILA HILLMAN [facility] ERT [id number] [facility] 2023-05-21 14:33:00 2023-05-21 16:29:00 Emergency Sheila Hillman [facility] [id number] [facility] 2023-05-21 11:40:00 2023-05-21 12:58:00 Emergency Sukhjinder Diaz [facility] [id number] [facility] 2023-05-21 11:40:00 2023-05-21 12:58:00 Emergency X ANTONI SUKHJINDER ANTONI SUKHJINDER [facility] ERT [id number] [facility]
--- NOTE | 2023-08-16 21:23 | RAD REPORT ---
EXAM DESCRIPTION: RAD - Chest Pa And Lat (2 Views) - 08/16/2023 8:44 pm CLINICAL HISTORY: COUGH COMPARISON: Chest Pa And Lat (2 Views) dated 08/11/2023; Chest Single View dated 07/16/2023; Chest Sing le View dated 05/06/2023; CHEST SINGLE VIEW dated 02/04/2011 TECHNIQUE: PA and lateral views of the chest were obtained. FINDINGS: The lungs are clear. Heart size is normal and central vasculature is within normal limits. No pleural effusion or pneumothorax seen. No acute bony finding noted. IMPRESSION: No acute cardiopulmonary process.
--- NOTE | 2023-08-16 22:10 | ER ---
Nurse's Notes [facility] Name: Brad Recinos Jr Age: 32 yrs Sex: Male : 1990 Arrival Date: 08/16/2023 Time: 19:55 Bed 8 Private MD: Diagnosis: Acute pharyngitis, unspecified Presentation: 08/16 20:11 Chief complaint: Patient states: "I WAS IN HERE THE OTHER DAY AND DIAGNOSE WITH THE bp FLU. NOTHING HELPING". Coronavirus screen: At this time, the client does not indicate any symptoms associated with coronavirus-19. Ebola Screen: No symptoms or risks identified at this time. Initial Sepsis Screen: Does the patient meet any 2 criteria? No. Patient's initial sepsis screen is negative. Does the patient have a suspected source of infection? No. Patient's initial sepsis screen is negative. Risk Assessment: Do you want to hurt yourself or someone else? Patient reports no desire to harm self or others. Onset of symptoms is unknown. 20:11 Method Of Arrival: Ambulatory bp 20:11 Acuity: ANABELLE 4 bp Triage Assessment: 20:11 General: Appears in no apparent distress. Behavior is cooperative, appropriate for age. bp Pain: Complains of pain in head. Respiratory: Reports cough that is Onset: The symptoms/episode began/occurred LAST WED, the patient has moderate shortness of breath. 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 - Social history:: Smoking status: unknown. Screenin:53 [facility] ED Fall Risk Assessment (Adult) History of falling in the last 3 months, jj7 including since admission No falls in past 3 months (0 pts) Confusion or Disorientation No (0 pts) Intoxicated or Sedated No (0 pts) Impaired Gait No (0 pts) Mobility Assist Device Used No (0 pt) Altered Elimination No (0 pt) Score/Fall Risk Level 0 - 2 = Low Risk Oriented to surroundings, Maintained a safe environment, Educated pt \\T\\ family on fall prevention, incl call for assistance when getting out of bed. Abuse screen: Denies threats or abuse. Nutritional screening: No deficits noted. Tuberculosis screening: No symptoms or risk factors identified. Assessment: 21:53 Cardiovascular: No deficits noted. Rhythm is regular. Respiratory: Reports shortness of jj7 breath cough that is Airway is patent Respiratory effort is even, unlabored. Vital Signs: 20:11 BP 135 / 87; Pulse 98; Resp 16; Temp 98; Pulse Ox 94% ; Weight 154.22 kg; Height 6 ft. bp 0 in. ; 21:53 BP 118 / 72; Pulse 88; Resp 17; Pulse Ox 100% on Nebulizer Mask; jj7 22:30 BP 127 / 82; Pulse 92; Resp 18; Pulse Ox 96% on R/A; pf1 20:11 Body Mass Index 46.11 (154.22 kg, 182.88 cm) bp ED Course: 19:58 Patient arrived in ED. jj6 20:11 Arm band placed on. bp 20:23 Triage completed. bp 20:31 Liz Pandya FNP-C is PHCP. snw 20:31 Tanner Haddad MD is Attending Physician. snw 20:46 Chest Pa And Lat (2 Views) XRAY In Process Unspecified. EDMS 21:53 Patient has correct armband on for positive identification. Bed in low position. Call jj7 light in reach. Side rails up X 1. Adult w/ patient. Warm blanket given. 21:53 No provider procedures requiring assistance completed. jj7 22:31 Provided Education on: prescriptions. pf1 22:31 Patient did not have IV access during this emergency room visit. pf1 Administered Medications: 21:50 Drug: Famotidine PO 20 mg PO once Route: PO; pf1 22:30 Follow up: Response: No adverse reaction; Marked relief of symptoms pf1 21:50 Drug: Promethazine PO 25 mg PO once Route: PO; pf1 22:30 Follow up: Response: No adverse reaction; Marked relief of symptoms pf1 21:50 Drug: AZITHromycin PO 500 mg PO once Route: PO; pf1 22:29 Follow up: Response: No adverse reaction; Marked relief of symptoms pf1 21:50 Drug: predniSONE PO 40 mg PO once Route: PO; pf1 22:29 Follow up: Response: No adverse reaction; Marked relief of symptoms pf1 21:50 Drug: Albuterol Inhalation 2.5 mg Inhalation once Route: Inhalation; pf1 22:29 Follow up: Response: No adverse reaction; Marked relief of symptoms pf1 Medication: 21:53 VIS not applicable for this client. jj7 Outcome: 22:09 Discharge ordered by . snw 22:30 Discharged to home ambulatory, with family, pf1 22:30 Condition: improved 22:30 Discharge instructions given to patient, family, Instructed on discharge instructions, follow up and referral plans. Demonstrated understanding of instructions, follow-up care, medications, Prescriptions given X 5 22:31 Patient left the ED. pf1 Signatures: Dispatcher [employer] EDMS Liz Pandya, LOT BOSS-C LOT BOSS-Csnw Shaun Ovalles RN RN Anisa Rodriguez jj6 Daxa Pennington RN RN jj7 Cassi Dye RN RN pf1
--- NOTE | 2023-08-16 22:10 | EDPHYS ---
Physician Documentation [facility] Name: Brad Recinos Jr Age: 32 yrs Sex: Male : 1990 Arrival Date: 08/16/2023 Time: 19:55 Bed 8 Private MD: ED Physician Tanner Haddad HPI: 08/16 22:07 This 32 yrs old Male presents to ER via Ambulatory with complaints of Shortness Of snw Breath, Dizziness, Cough. 22:07 The patient has shortness of breath at rest. Onset: The symptoms/episode began/occurred snw acutely. Duration: The symptoms are continuous. The patient's shortness of breath is aggravated by coughing. Associated signs and symptoms: Pertinent positives: nausea, vomiting, diarrhea. The patient has not experienced similar symptoms in the past. The patient has been recently seen by a physician: with similar presenting complaints, dx with influenza and given tamiflu. 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 - Social history:: Smoking status: unknown. ROS: 21:43 Constitutional: Negative for fever, chills, and weight loss, Eyes: Negative for injury, snw pain, redness, and discharge, 21:43 Neck: Negative for injury, pain, and swelling, Cardiovascular: Negative for chest pain, palpitations, and edema, 21:43 Back: Negative for injury and pain, : Negative for injury, bleeding, discharge, and swelling, MS/Extremity: Negative for injury and deformity, Skin: Negative for injury, rash, and discoloration, Neuro: Negative for headache, weakness, numbness, tingling, and seizure, Psych: Negative for depression, anxiety, suicide ideation, homicidal ideation, and hallucinations, 21:43 ENT: Positive for sinus congestion, sore throat, 21:43 Respiratory: Positive for cough, 21:43 Abdomen/GI: Positive for nausea, vomiting, diarrhea, Exam: 21:41 Constitutional: This is a well developed, well nourished patient who is awake, alert, snw and in no acute distress. Head/Face: Normocephalic, atraumatic. Eyes: Pupils equal round and reactive to light, extra-ocular motions intact. Lids and lashes normal. Conjunctiva and sclera are non-icteric and not injected. Cornea within normal limits. Periorbital areas with no swelling, redness, or edema. 21:41 Neck: Trachea midline, no thyromegaly or masses palpated, and no cervical lymphadenopathy. Supple, full range of motion without nuchal rigidity, or vertebral point tenderness. No Meningismus. Chest/axilla: Normal chest wall appearance and motion. Nontender with no deformity. No lesions are appreciated. Cardiovascular: Regular rate and rhythm with a normal S1 and S2. No gallops, murmurs, or rubs. Normal PMI, no JVD. No pulse deficits. Abdomen/GI: Soft, non-tender, with normal bowel sounds. No distension or tympany. No guarding or rebound. No evidence of tenderness throughout. 21:41 Back: No spinal tenderness. No costovertebral tenderness. Full range of motion. Skin: Warm, dry with normal turgor. Normal color with no rashes, no lesions, and no evidence of cellulitis. MS/ Extremity: Pulses equal, no cyanosis. Neurovascular intact. Full, normal range of motion. Neuro: Awake and alert, GCS 15, oriented to person, place, time, and situation. Cranial nerves II-XII grossly intact. Motor strength 5/5 in all extremities. Sensory grossly intact. Cerebellar exam normal. Normal gait. Psych: Awake, alert, with orientation to person, place and time. Behavior, mood, and affect are within normal limits. 21:41 ENT: External ear(s): are unremarkable, Ear canal(s): are normal, TM's: are normal, Nose: Mouth: is normal, Posterior pharynx: erythema, that is moderate, Voice: is normal, 21:41 Respiratory: the patient does not display signs of respiratory distress, Respirations: normal, shallow respirations, Breath sounds: bronchial sounds, that are moderate, are heard diffusely, bronchitic cough, Vital Signs: 20:11 BP 135 / 87; Pulse 98; Resp 16; Temp 98; Pulse Ox 94% ; Weight 154.22 kg; Height 6 ft. bp 0 in. ; 21:53 BP 118 / 72; Pulse 88; Resp 17; Pulse Ox 100% on Nebulizer Mask; jj7 22:30 BP 127 / 82; Pulse 92; Resp 18; Pulse Ox 96% on R/A; pf1 20:11 Body Mass Index 46.11 (154.22 kg, 182.88 cm) bp MDM: 20:45 Patient medically screened. snw 22:08 Differential diagnosis: Anxiety Reaction asthma, Bronchitis pneumonia, pharyngitis. snw Data reviewed: vital signs, nurses notes, radiologic studies, plain films. Counseling: I had a detailed discussion with the patient and/or guardian regarding the historical points, exam findings, and any diagnostic results supporting the discharge/admit diagnosis, radiology results, the need for outpatient follow up, for definitive care, to return to the emergency department if symptoms worsen or persist or if there are any questions or concerns that arise at home. Special discussion: Based on the history and exam findings, there is no indication for further emergent testing or inpatient evaluation. I discussed with the patient/guardian the need to see the primary care provider for further evaluation of the symptoms. 08/16 20:26 Order name: Chest Pa And Lat (2 Views) XRAY; Complete Time: 21:26 bp Administered Medications: 21:50 Drug: Famotidine PO 20 mg PO once Route: PO; pf1 22:30 Follow up: Response: No adverse reaction; Marked relief of symptoms pf1 21:50 Drug: Promethazine PO 25 mg PO once Route: PO; pf1 22:30 Follow up: Response: No adverse reaction; Marked relief of symptoms pf1 21:50 Drug: AZITHromycin PO 500 mg PO once Route: PO; pf1 22:29 Follow up: Response: No adverse reaction; Marked relief of symptoms pf1 21:50 Drug: predniSONE PO 40 mg PO once Route: PO; pf1 22:29 Follow up: Response: No adverse reaction; Marked relief of symptoms pf1 21:50 Drug: Albuterol Inhalation 2.5 mg Inhalation once Route: Inhalation; pf1 22:29 Follow up: Response: No adverse reaction; Marked relief of symptoms pf1 Disposition Summary: 08/16/23 22:09 Discharge Ordered Notes: Location: Home snw Condition: Stable snw Diagnosis - Acute pharyngitis, unspecified snw Followup: snw - With: Emergency Department - When: As needed - Reason: Worsening of condition Followup: snw - With: Private Physician - When: 2 - 3 days - Reason: Recheck today's complaints, Continuance of care, Re-evaluation by your physician Discharge Instructions: - Discharge Summary Sheet snw - Acute Bronchitis, Adult snw - Pharyngitis snw Forms: - Work release form snw - Medication Reconciliation Form snw - Thank You Letter snw - Antibiotic Education snw - Prescription Opioid Use snw - Patient Portal Instructions snw - Leadership Thank You Letter snw Prescriptions: - albuterol sulfate 90 mcg/actuation Inhalation HFA Aerosol Inhaler - inhale 2 puff INHALATION route every 4 to 6 hours for 7 days as needed for snw shortness of breath or wheezing; 1 Unspecified; Refills: 0, Product Selection Permitted - Zofran 4 mg Oral Tablet - take 1 tablet ORAL route every 12 hours As needed; 20 tablet; Refills: 0, snw Product Selection Permitted - Zyrtec 10 mg Oral Tablet - take 1 tablet ORAL route once daily As needed; 20 tablet; Refills: 0, Product snw Selection Permitted - Pepcid 20 mg Oral Tablet - take 1 tablet ORAL route once daily; 20 tablet; Refills: 0, Product Selection snw Permitted - Zithromax 500 mg Oral Tablet - take 1 tablet ORAL route once daily for 5 days; 5 tablet; Refills: 0, Product snw Selection Permitted Signatures: Dispatcher [employer] Liz Cross FNP-C FNP-Suniw Shaun Ovalles, RN RN bp Cassi Dye RN RN pf1
[2023-08-17 02:26] VITALS: BP 127/82; TEMP 98; O2SAT 96
== END ==
LOC: ER 19:55
DX: J02.9 Acute pharyngitis, unspecified (principal); R06.02 Shortness of breath; R05.9 Cough, unspecified; R11.2 Nausea with vomiting, unspecified
CPT/HCPCS: 71046; 99284; J7512; J7613; Q0169

== ENCOUNTER → 2023-10-21 | Emergency (ER) | payer SELFPAY ==
--- OUTSIDE RECORDS SUMMARY | 2023-10-21 17:14 | XMS REPORT | Continuity of Care Document ---
Author Name Unknown Address [address] [facility] [address] [place] [address] [facility] thconnect Address [address] [facility]. [address] [place] [address] Care Team Providers Care Publicity Manager Name Role Phone UNKNOWN, REFFERING Primary Care Physician MARIA ANTONIA Matson Attending Clinician Unavailable ISABEL FLOREZ Attending Clinician Isabel Garcia MD Attending Clinician + SHEILA HILLMAN Attending Clinician Unavailab Sheila Rodriguez DO Attending Clinician [phone] SUKHJINDER DIAZ Attending Clinician Unavailable SUKHJINDER DIAZ Attending Clinician Unavailable ADINA GOODRICH M.D., ADINA Ash M.D. Attendin g Clinician Unavailable MARIA ANTONIA HOLLIS Admitting Clinician Unavailable ADINA GOODRICH M.D., MICHAEL M Admitting Clin ician Unavailable Payers Payer Name Policy Type Policy Number Effective Date Expirati on Date Source MEDICAID PENDING PENDING 2023 00:00:00 Allergies, Adverse Reactions, Alerts Allergy Name Allergy Type Status Severity Reaction(s) Onset Date Inactive Date Treating Clinician Comments Source NO KNOWN ALLERGIE S Drug Class Active [facility] Social History Social Habit Start Date Stop Date Quantity Comments Source Sexual orientation U [facility] Sex Assigned At 1990 00:00:00 1990 00:00:00 [facility] Smoking Status Start Date Stop Date Source Tobacco smoking consumption unknown [facility] Medications Ordered Medication Name Filled Medication Name Start Date Stop Date Current Medication? Ordering Clinician Indication Dosage Frequency Signature (SIG) Comments Components Source ipratropium -albuteroL (DUONEB) 0.5 mg-3 mg(2.5 mg base)/3 mL nebulizer solution 3 mL 09-09 22:54: 00 09-09 22:58 :00 No 3mL 3 mL, Inhalation , ONCE, 1 dose, On Wed09/09/23 at 1700, Routine [facility] benzonatate 100 mg capsule 09-09 00:00: 00 Yes [id number] 100mg Take 1 capsule by mouth 3 (three) times daily as needed for Cough. [facility] albuterol 90 mcg/actuati on inhaler 09-09 00:00: 00 Yes [id number] 2{puff} Inhale 2 Puffs every 6 (six) hours as needed for Wheezing or Shortness of Breath. [facility] maalox:diph enhydrAMINE :lidocaine 2 % viscous 1:1:1 ([facility]) oral suspension 15 mL 2022-08 03:30: 00 05-26 03:23 :00 No 15mL 15 mL, Oral, ONCE, 1 dose, On Wed05/25/23 at 2230, Routine [facility] maalox:diph enhydrAMINE :lidocaine 2 % viscous 1:1:1 ([facility]) oral suspension 15 mL 2022-08 20:15: 00 05-21 20:15 :00 No 15mL 15 mL, Oral, ONCE, 1 dose, On Wed05/21/23 at 1515, Routine [facility] omeprazole 40 mg capsule 2022-08 00:00: 00 Yes [id number] 40mg Take 1 capsule by mouth in the morning. [facility] omeprazole 40 mg capsule 2022-08 00:00: 00 Yes [id number] 40mg Take 1 capsule by mouth in the morning. [facility] omeprazole 40 mg capsule 2022-08 0-13 00:00: 00 Yes [id number] 40mg Take 1 capsule by mouth in the morning. [facility] Vital Signs Vital Name Observation Time Observation Value Comments S eligio Heart rate 2023-09-09 23:03:00 91 /[facility] 2023-09-09 23:03:00 16 /min [facility] Oxygen saturation in Arterial blood by Pulse oximetry 2023-09-09 23:03:00 97 /min [facility] Systolic blood pressure 2023-09-09 21:55:00 129 mm[Hg] [facility] Diastolic blood pressure 2023-09-09 21:55:00 84 mm[Hg] [facility] Body temperature 2023-09-09 21:55:00 37 Marcela [facility] Body height 2023-09-09 21:55:00 182.9 cm [facility] Body weight 2023-09-09 21:55:00 163.295 kg [facility] BMI 2023-09-09 21:55:00 48.82 kg/m2 [facility] Systolic blood pressure 2023-05-26 03:47:00 129 mm[Hg] [facility] Diastolic blood pressure 2023-05-26 03:47:00 76 mm[Hg] [facility] Heart rate 2023-05-26 03:47:00 75 /min [facility] Body temperature 2023-05-26 03:47:00 37.28 Marcela [facility] Respiratory rate 2023-05-26 03:47:00 16 /min [facility] Oxygen saturation in Arterial blood by Pulse oximetry 2023-05-26 03:47:00 95 /min [facility] Body height 2023-05-26 02:24:00 182.9 cm [facility] Body weight 2023-05-26 02:24:00 154.223 kg [facility] BMI 2023-05-26 02:24:00 46.11 kg/m2 [facility] Systolic blood pressure 2023-05-21 21:26:06 128 mm[Hg] [facility] Diastolic blood pressure 2023-05-21 21:26:06 94 mm[Hg] [facility] Heart rate 2023-05-21 21:26:06 86 /min [facility] Body temperature 2023-05-21 21:26:06 37.06 Marcela [facility] Respiratory rate 2023-05-21 21:26:06 18 /min [facility] Oxygen saturation in Arterial blood by Pulse oximetry 2023-05-21 21:26:06 100 /min [facility] Body height 2023-05-21 19:31:00 182.9 cm [facility] Body weight 2023-05-21 19:31:00 156.491 kg [facility] BMI 2023-05-21 19:31:00 46.79 kg/m2 [facility] Body height 2023-05-21 16:40:00 182.9 cm [facility] Body weight 2023-05-21 16:40:00 156.627 kg [facility] BMI 2023-05-21 16:40:00 46.83 kg/m2 [facility] Oxygen saturation in Arterial blood by Pulse oximetry 2023-05-21 16:40:00 100 /min [facility] Systolic blood pressure 2023-05-21 16:40:00 128 mm[Hg] [facility] Diastolic blood pressure 2023-05-21 16:40:00 95 mm[Hg] [facility] Heart rate 2023-05-21 16:40:00 92 /min [facility] Body temperature 2023-05-21 16:40:00 37 Marcela [facility] Respiratory rate 2023-05-21 16:40:00 18 /min [facility] Procedures Procedure Date / Time Performed Performing Clinicia n Source COMP. METABOLIC PANEL (28803) 2023-09-09 22:23:00 Maria Antonia Hollis [facility] CBC WITH DIFF 2023-09-09 22:23:00 Maria Antonia Hollis [facility] RAPID INFLUENZA A/B 2023-09-09 22:23:00 Lashonda Hollis [facility] XR CHEST 1 VW 2023-09-09 22:22:56 Maria Antonia Hollis [facility] CONSENT/REFUSAL FOR DIAGNOSIS AND TREATMENT 2023-09-09 21:33:59 Doctor Unassigned, [place] [facility] CONSENT/REFUSAL FOR DIAGNOSIS AND TREATMENT 2023-05-26 02:02:36 Doctor Unassigned, [place] [facility] ASSIGNMENT OF BENEFITS 2023-05-21 20:39:33 Docto r Unassigned, [place] [facility] CONSENT/REFUSAL FOR DIAGNOSIS AND TREATMENT 2023-05-21 19:14:42 Doctor Unassigned, [place] [facility] NOTICE OF PRIVACY PRACTICES 2023-05-21 16:34:41 Doctor Unassigned, [place] [facility] CONSENT/REFUSAL FOR DIAGNOSIS AND TREATMENT 2023-05-21 16:30:50 Doctor Unassigned, [place] [facility] Encounters Start Date/Time End Date/Time Encounter Type Admission Type Attending [facility] Care Department Encounter ID Source 2023-09-09 16:08:00 2023-09-09 17:42:00 Emergency X MARIA ANTONIA HOLLIS [facility] ERT [id number] [facility] 2023-09-09 16:08:00 2023-09-09 17:42:00 Emergency Maria Antonia Hollis [facility] 1.2.840.114 350.1.13.10 4.2.7.2.686 [id number] [facility] 2023-05-25 21:28:00 2023-05-25 22:49:00 Emergency X ISABEL FLOREZ [facility] ERT [id number] [facility] 2023-05-25 21:28:00 2023-05-25 22:49:00 Emergency Aurose mary Isabel Susanne [facility] 1.2.840.114 350.1.13.10 4.2.7.2.686 [id number] [id number] [facility] 2023-05-21 14:33:00 2023-05-21 16:29:00 Emergency X SHEILA HILLMAN [facility] ERT [id number] [facility] 2023-05-21 14:33:00 2023-05-21 16:29:00 Emergency Sheila Hillman [facility] 1.2.840.114 350.1.13.10 4.2.7.2.686 [id number] [id number] [facility] 2023-05-21 11:40:00 2023-05-21 12:58:00 Emergency SUKHJINDER RICHARDSON TIMOTHY [facility] ERT [id number] [facility] 2023-05-21 11:40:00 2023-05-21 12:58:00 Emergency Sukhjinder Diaz [facility] 1.2.840.114 350.1.13.10 4.2.7.2.686 [id number] [id number] [facility] Results Test Description Test Time Test Comments Results Result Co mments Source [facility] WITH [id number] 22:52:56* Test Item Value Reference Range Interpretation Comme nts WBC (test code = 6690-2) 9.34 4.20-10.70 RBC (test code = 789-8) 5.96 4.26-5.52 H HGB (test code = 718-7) 17.8 g/dL 12.2-16.4 H HCT (test code = 4544-3) 52.6 % 38.4-49.3 H MCV (test code = 787-2) 88.3 fL 81.7-95.6 MCH (test code = 785-6) 29.9 pg 26.1-32.7 MCHC (test code = 786-4) 33.8 g/dL 31.2-35.0 RDW-SD (test code = 76530-1) 41.6 fL 38.5-51.6 RDW-CV (test code = 788-0) 12.9 % 12.1-15.4 PLT (test code = 777-3) 218 150-328 MPV (test code = 08977-6) 10.0 fL 9.8-13.0 NRBC/100 WBC (test code = 0140645376) 0.0 0.0-10.0 NRBC x10^3 (test code = 9150489861) See_Comment [Automated messa ge] The system which generated this result transmitted reference range: 10*3/?L. The reference range was not used to interpret this result as normal/abnormal. GRAN MAT (NEUT) % (test code = 770-8) 47.2 % IMM GRAN % (test code = 9205756766) 1.00 % LYMPH % (test code = 736-9) 39.4 % MONO % (test code = 5905-5) 10.0 % EOS % (test code = 713-8) 2.1 % BASO % (test code = 706-2) 0.3 % GRAN MAT x10^3(ANC) (test code = 3152358493) 4.41 10*3/uL 1.99-6.95 IMM GRAN x10^3 (test code = 8581012037) 0.09 10*3/uL 0.00-0.06 H LYMPH x10^3 (test code = 731-0) 3.68 10*3/uL 1.09-3.23 H MONO x10^3 (test code = 742-7) 0.93 10*3/uL 0.36-1.02 EOS x10^3 (test code = 711-2) 0.20 10*3/uL 0.06-0.53 BASO x10^3 (test code = 704-7) 0.03 10*3/uL 0.01-0.09 Lab Interpretation (test code = 75227-7) Abnormal [facility] [id number] 22:25:13HISTORY: SOB and cough. TECHNIQUE: Portable AP view of the chest is obtained. FINDINGS: Minimal congestion suspected surrounding the right hilum and inboth lower lungs. No acute pneumonia. No pneumothorax or pleural effusiondetected. Cardiac size is within normal limits. CONCLUSIONS: Minimal bilateral pulmonary congestion. Etiology could beviral infection. No pneumonia.[facility]min2018-01-09 08:36:00* Test Item Value Reference Range Interpretation Comme nts Ceruloplasmin (test code = 948241) 24.9 mg/dL 16.0-31.0 N Treponema Pallidum Yswccdixbq0678-70-50 22:05:00* Test Item Value Reference Range Interpretation Comme nts Treponemal Antibody IgG (rody t code = TREPAB) Non-reactive Non-reactive N Fshsjkynrq0946-10-47 07:39:00* Test Item Value Reference Range Interpretation Comme nts Phosphorus (test code = PO4) 4.2 mg/dL 2.70-4.50 N Thyroid Stimulating Hormone (TSH)2017-08-07 07:51:00* Test Item Value Reference Range Interpretation Comme nts TSH (test code = TSH) 1.33 mIU/mL 0.270-4.200 N Lipid Fnicdbr7850-84-60 07:46:00* Test Item Value Reference Range Interpretation Comme nts Cholesterol (test code = CHOL) 177 mg/dL 0-200 N Triglycerides (test code = TRIG) 71 mg/dL 9-200 N HDL (test code = HDL) 39 mg/dL 40-60 L Chol/HDL (test code = CHOLPHDL) 4.5 Ratio 0.0-5.0 N LDL, Calculated (test code = LDLC) 124 0-130 N (NOTE)RISK OF HEART DISEASEPublished by Turkmen Heart AssociationAnalyte Optimal Boderline Increased RiskCHOL <200 200-239 >240TRIG <150 150-199 >200HDL Male: >60 <40HDL Female: >60 <50LDL <100 130-159 >160LDL NEAR OPTIMAL IS 100-129 VLDL (test code = VLDL) 14 mg/dL 5-40 N LDL/HDL (test code = LDLPHDL) 3 RPR, Zgme9611-04-00 06:55:00* Test Item Value Reference Range Interpretation Comme nts RPR (test code = RPR) Non-Reactive Non-Reactive N MKU5Q7994-96-34 22:21:00* Test Item Value Reference Range Interpretation [...] = ETOHU) <0.01 g/dL 0.00-0.01 N Urinalysis Nrpkvtqz4370-36-00 22:13:00* Test Item Value Reference Range Interpretation Comme nts Color (test code = COLOR) Yellow Yellow,Straw,Pl yellow N Clarity (test code = CLAR) Clear Clear N Specific [place] (test code = SPGR) 1.019 1.001-1.035 N [...] code = BACT) None /HPF Comprehensive Metabolic Vgewl8509-74-56 20:50:00* Test Item Value Reference Range Interpretation [...] race is not provided, and the patient isAfrican-Turkmen, multiply by 1.212. If sex is not [...] the National Kidney Foundation,http://nkdep .nih.gov CBC with Iftqjbbntjds4380-77-60 20:36:00* Test Item Value Reference Range Interpretation [...] code = ALYMPH) 1.5 K/cumm 0.5-4.6 N [place] Abs (test code = AMONO) 0.7 K/cumm 0.0-1.2 N Eos Abs (test code = AEOS) 0.06 K/cumm 0.00-0.74 N Baso Abs (test code = ABASO) 0.0 K/cumm 0.00-0.21 N Notes Date/Time Note Provider Source 2023-09-09 17:41:45 Xm/Lh4bIGaGVZTyyDKt7 szFap9cZpihAl nLEI6qsL8e8Xtn3H3Ht3AJGt+LmL0h+20 02-10-00T17:41:45 Patient discharged home with rx. Follow up with PCP. Return to ER if condition worsens. 24627-4Tfbyjcwds department DmtkFG0550-70-37I98:42:33Emerchi [facility] y department NoteTXT1.2.840.899468.1.13.104.2. 7.2.084725|[id number] for patient fgll75744-6CvawJPERXXVWVNNTsesgad ed C-CDA narrative rbmg130411567Izauicf D Wierzbicki [address]TXTX[address] 846NGBXQSKICEXVWZJLYPQADX6780-79- 01T17:42:331.2.840.381098.1.72.3. 15|1.2.840.818381.1.13.104.2.7.2. [id number] Husam Brown [facility] 2023-09-09 16:17:58 KUjMpDVbKvtT6QhJKKGU DMQBn93VenrXS hjc8RGpNtDG7j0SuZmsdGbysTMEGZQc73 02-10-00T16:17:58 RT paged for neb treatment. 83810-1Vjxhoxxct department XrurHC5419-68-67O06:18:05[facility] NoteTXT1.2.840.048898.1.13.104.2. 7.2.045247|[id number] for patient ebfj82605-0BcvqRLGBBURLGNLBggmihe ed C-CDA narrative smcn681296707Ltjww N Dewoody RN[address]TXTX[address] 429UWUVXOENNUWQDZKLKQBTKG0190-74- 01T16:18:051.2.840.596646.1.72.3. 15|1.2.840.390793.1.13.104.2.7.2. 727879_[id number] Cinthya Montejo RN [facility] 2023-09-09 15:55:00 MigRP+0OmnliL/4BInih bFG3zxLOh7WEL e2ZOYyGydz/t6yA4Es3v1zGFO/uhFof20 02-10-00T15:55:00 Patient states: "I'm having congestion, SOB when I move around since 3 weeks now. I was diagnosed with bronchitis a week ago and finished a course of antibiotics but it still hasn't cleared up, I still feel my chest congested." Patient denies chest pain in triage and states he only have it when he coughs. 32703-1Nhaflxrmd department Triage gmjrTB3860-29-28S39:12:32[facility] department Triage noteTXT1.2.840.357249.1.13.104.2. 7.2.365927|[id number] for patient eter62445-9Cslcnbmsd department NoteLNNARRATIVEFormatted C-CDA narrative lgqm578227582Ymbcvfyv C Heredia RN[address] UoqrAeqkkkotwErqgzgyamSGXD6361582 912JXIOOOIKVOHZXBEHINSFDR7967-04- 01T16:12:321.2.840.221910.1.72.3. 15|1.2.840.005903.1.13.104.2.7.2. [id number] Ruth Tilley RN [facility] 2017-09-08 17:53:42 [id number]+Reo nGKUmZz+HxSjR YYja7eOimRXu26zo6J2l9t7n4UmdM9IYF EivrLk584897-06-02D48:53:42 [facility] Discharge SummaryPATIENT NAME: IVELISSE SCHUMACHER PHYSICIAN: Deb Bianchi MD Admitted: MR NUMBER: [id number] DISCHARGED: 08/13/2017 02:02:00 REASON FOR ADMISSION:Mr. Schumacher [...] on this claim. He was evaluated at [facility] twice, got a CT head which [...] isolative and talking less with family since which is about 1 month prior. Other than that, family denies any other delusions, AVH, disorganized speech,behavior or negative symptoms of schizophrenia. They state that his hygiene is good. He has a good heart. He is responsible. 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 His presentation is in the [...] hand contracture.AXIS IV: Lives with mother in [place]. 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 Has supportive family in the area who visit him on a daily basis while in the unit.LEGAL HISTORY: [facility] Discharge SummaryPATIENT NAME: IVELISSE SCHUMACHER PHYSICIAN: Deb Bianchi MD Admitted: MR NUMBER: [id number] DISCHARGED: 08/13/2017 02:02:00 REASON FOR ADMISSION:Mr. Schumacher [...] on this claim. He was evaluated at [facility] twice, got a CT head which [...] isolative and talking less with family since which is about 1 month prior. Other than that, family denies any other delusions, AVH, disorganized speech,behavior or negative symptoms of schizophrenia. They state that his hygiene is good. He has a good heart. He is responsible. 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 His presentation is in the [...] hand contracture.AXIS IV: Lives with mother in [place]. 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 Has supportive family in the area who visit him on a daily basis while in the unit.LEGAL HISTORY: [facility] Discharge SummaryNone.High school is his highest level of education.PRINCIPAL PROCEDURES:Psychopharmacotherapy. SPECIAL PROCEDURE:None. [facility] Discharge SummaryNone.High school is his highest level of education.PRINCIPAL PROCEDURES:Psychopharmacotherapy. SPECIAL PROCEDURE:None. [facility] Discharge SummaryHOSPITAL COURSE:Mr. Ivelisse Schumacher is a 26-year-old male that was admitted to Dr. Goodrich's team from 08/05/2017 to 08/13/2017. The patient was on unit restriction along with elopement and standard PICU precautions. The patient was started on Risperdal 2 mg p.o. at bedtime for his psychotic symptoms; however, he experienced nausea and vomiting. He was also started on Htczfhie38 mg p.o. at bedtime p.r.n. for anxiety [...] and follow up with his outpatient psychiatrist. [facility] Discharge SummaryHOSPITAL COURSE:Mr. Ivelisse Schumacher is a 26-year-old male that was admitted to Dr. oGodrich's team from 08/05/2017 to 08/13/2017. The patient was on unit restriction along with elopement and standard PICU precautions. The patient was started on Risperdal 2 mg p.o. at bedtime for his psychotic symptoms; however, he experienced nausea and vomiting. He was also started on Vqmxfavm54 mg p.o. at bedtime p.r.n. for anxiety [...] and follow up with his outpatient psychiatrist. [facility] Discharge SummaryMENTAL STATUS EXAMINATION ON DISCHARGE:The patient [...] patient has a followup appointment scheduled with [facility] in [place], [place] on 08/18/[address] Apodaca. The patient has been given specific instructions on how to get to the appointment. [facility] Discharge SummaryMENTAL STATUS EXAMINATION ON DISCHARGE:The patient [...] patient has a followup appointment scheduled with [facility] in [place], [place] on 08/18/[address] Apodaca. The patient has been given specific instructions on how to get to the appointment. [facility] Discharge SummaryDISPOSITION:Mr. Ivelisse Schumacher is currently stable [...] The patient has also met with his social worker masters to obtain the appropriate followup paperwork. The importance of following through with this plan had been reviewed with the patient, with the understanding that compliance would be crucial to his recovery. [facility] and information about [facility] if he wishes to obtain therapy.Geneva Knutson MDLK/BEKAH/GRACIEDD: 08/13/2017 18:32TD: 08/13/2017 21:44Job #: [id number]:Adina Goodrich MD Electronically Authenticated and Edited by:Deb Bianchi MD On 08/16/2017 03:31 PM PHARMACY PICKING TECH [facility] Discharge SummaryDISPOSITION:Mr. Ivelisse Schumacher is currently stable [...] The patient has also met with his social worker masters to obtain the appropriate followup paperwork. The importance of following through with this plan had been reviewed with the patient, with the understanding that compliance would be crucial to his recovery. He has been given the [facility] hotline number and information about [facility] if he wishes to obtain therapy.Geneva Knutson MDLK/BEKAH/VALARIE: 08/13/2017 18:32TD: 08/13/2017 21:44Job #: [id number]:Adina Goodrich MD Electronically Authenticated and Edited by:Deb Bianchi MD On 08/16/2017 03:31 PM CSTElectronically Authenticated by:Adina Goodrich MD On 09/08/2017 05:53 PM CSTDSDischarge pxguiai922159290WTGxhxgmjub for patient emrrMAEJAFFNIBZW8259-54-48E79:53: 42 [facility] 2017-09-08 17:53:18 [id number]+b MBpoGe/D/mYWq w+LiBJ+pBYviNbXLg3mqpP8TmISdTir8W y+47vSb23265-39-34A66:53:18 [facility] Psych EvalPATIENT NAME: IVELISSE SCHUMACHER PHYSICIAN: Deb Bianchi MD Admitted: MR NUMBER: [id number] DISCHARGED: Psych EvalPatient Name: IVELISSE SCHUMACHER Date ofService: Date of : 1990Clinician: Deb Bianchi MD User Field 1: JEncounter Visit: [facility] User Field 3: Reva Goodrich [facility]ician:ATTENDING PHYSICIAN:Adina Goodrich MD.The patient was admitted on 08/05/2017 to the intake and 08/06/2017 to the inpatient psych floor.INFORMANTS:Patient, the patient's family including the hmrsuo-fy-rxs and his mother as well as an EAD.CHIEF COMPLAINT:Per EAD, delusional, paranoid activity, behavior escalating to verbal aggression. Thinks Tate and rcchwi-oi-quk wants to shoot and stab him.HISTORY OF [...] negative x9. The patient was brought inby [facility]'s office and did not sign in [...] of a timeline of events starting at [facility]. Familystarted to notice how he easily forgot things. Since then when he talked on the phone with his mom he was more easily distractible and absent minded. However, he came home about 7-10 days ago and was healthy enough to make a trip to [place] on the Wednesday before , 3 days prior. Then on 08/02/2017, , the patient stated [facility] though he said this was a joke quickly after saying that. On 08/03/2017, he showed up to his family's house. He was asking where his siblings were even though he knew they were in [facility]. He was down and crying and then became very aggressive and was labile. He did not recognize his family including his pkonwe-kl-jrr and mother. He believes that his hvitto-zv-veg was wanting to pull a gun on him and became verbally aggressive, screaming and yelling and slamming cabinet doors. He also stated [facility] Psych EvalPATIENT NAME: IVELISSE SCHUMACHER PHYSICIAN: Deb Bianchi MD Admitted: MR NUMBER: [id number] DISCHARGED: Psych EvalPatient Name: IVELISSE SCHUMACHER Date ofService: Date of : 1990Clinician: Deb Bianchi MD User Field 1: JEncounter Visit: [facility] User Field 3: Reva [facility]ician:ATTENDING PHYSICIAN:Adina Goodrich MD.The patient was admitted on 08/05/2017 to the intake and 08/06/2017 to the inpatient psych floor.INFORMANTS:Patient, the patient's family including the fxvdyg-ai-jzl and his mother as well as an EAD.CHIEF COMPLAINT:Per EAD, delusional, paranoid activity, behavior escalating to verbal aggression. Thinks Tate and hmaoae-jp-ial wants to shoot and stab him.HISTORY OF [...] negative x9. [facility] and did not sign in [...] of a timeline of events starting at [facility]. Familystarted to notice how he easily forgot things. Since then when he talked on the phone with his mom he was more easily distractible and absent minded. However, he came home about 7-10 days ago and was healthy enough to make a trip to [place] on the Wednesday before , 3 days prior. Then on 08/02/2017, , the patient stated he may have used some acid at [employer] house though he said this was a joke quickly after saying that. On 08/03/2017, he showed up to his family's house. He was asking where his siblings were even though he knew they were in [facility]. He was down and crying and then became very aggressive and was labile. He did not recognize his family including his kcvcdq-hw-hrk and mother. He believes that his wgjdwq-zc-rph was wanting to pull a gun on [...] was on. The patient was taken to [facility] on 08/03/[address] he [address] a [address] of the head showing no acute changes. A UDS wasnot done at that time. He said he became agitated. He went home and on 08/04/2017, he went back to the hospital and got a UDS that was negative at [facility]. Family states that nothing like this [...] are poisoning his food. He thinks that I has put a tap on his phone. He thinks that his pxjcnv-gz-wel is going to shoot him. He does state that he has a named Juanita from [place] and that he is afraidimmigration services are here. It turns out that he does have a named Juaniat; however, she is from [facility]. She does not have her papers [...] suicidal ideations or homicidal ideations.PAST PSYCHIATRIC HISTORY:PAST DIAGNOSES:None.PSYCHIATRIST:None. THERAPIST:None.CURRENT PSYCHOTROPIC MEDICATIONS:None.PAST MEDICATION TRIALS:None.HOSPITALIZATIONS:None . Patient Name: IVELISSE SCHUMACHER "I am going to , I don't want to and started hitting himself on the head." He also stated "I had a meeting with president Karol" and became veryparanoid when the TV was on. The patient was taken to [facility] on 08/03/[address] where he got a [address] of the head showing no acute changes. A UDS wasnot done at that time. He said he became agitated. He went home and on 08/04/2017, he went back to the hospital and got a UDS that was negative at [facility]. Family states that nothing like this [...] are poisoning his food. He thinks that I has put a tap on his phone. He thinks that his krzdni-qa-uyk is going to shoot him. He does state that he has a named Juanita from [place] and that he is afraidimmigration services are here. It turns out that he does have a named Juanita; however, she is from [facility]. She does not have her papers [...] suicidal ideations or homicidal ideations.PAST PSYCHIATRIC HISTORY:PAST DIAGNOSES:None.PSYCHIATRIST:None. THERAPIST:None.CURRENT PSYCHOTROPIC MEDICATIONS:None.PAST MEDICATION TRIALS:None.HOSPITALIZATIONS:None . Patient Name: IVELISSE SCHUMACHER ATTEMPTS:None.SUBSTANCE USE:Alcohol. He [...] to get residency as she is from [facility] and does not have papers. 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 However, when he is off which is usually 1-2 weeks out of the month, he lives with his mother in a hotel at [place] as they recently lost their house. 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 However, when he is off which is usually 1-2 weeks out of the month, he lives with his mother in a hotel at [place] as they recently lost their house. 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 Thought content denies any SI [...] him having STDs, being to a from [place]. Thought content denies any SI [...] symptoms and schizophrenia including memory problems since [place], being less social [...] CMP, TSH, RPR, UA and CT head, SPANISH SPEAKING BABYSITTER infection, neurosyphilis, brain tumor, metabolic abnormalities, nutritional deficiencies and thyroid disorders are less likely. 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 Legal history none. Highest education level, high school. Family members include Alyssa Cerda, his ajhzvz-fu-opv, her number is [phone]. His mother is Ann Schumacher, her number is [phone] [facility]. She prefers that we speak with oqqijm-nr-xsw as she states that herlevel of [place]uran can make it hard to communicate.PLAN:Ivelisse Schumacher will be admitted to Dr. Goodrich's service on the [facility] and placed on suicide, [...] CMP, TSH, RPR, UA and CT head, SPANISH SPEAKING BABYSITTER infection, neurosyphilis, brain tumor, metabolic abnormalities, nutritional deficiencies and thyroid disorders are less likely. 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 Legal history none. Highest education level, high school. Family members include Alyssa Cerda, his utiwfb-ng-iey, her number is [phone]. His mother is Ann Schumacher, her number is [phone] from [facility]. She prefers that we speak with tgitpi-dl-uxj as she states that herlevel of [place] can make it hard to communicate.PLAN:Ivelisse Schumacher will be admitted to Dr. Goodrich's service on the [facility] Inpatient Unit and placed on suicide, [...] MD Patient Name: IVELISSE SCHUMACHER Dictated: 08/07/2017Date 08/07/2017Transcribed:CARLOS/CADEN/VANDA ob #: [id number]:Adina Goodrich MD Edited by:Deb Bianchi MD On 08/10/2017 03:03 PM CSTElectronically Authenticated and Edited by:Deb Bianchi MD On 08/16/2017 04:36 PM CSTPatient Name: IVELISSE SCHUMACHER Dictated: 08/07/2017Date 08/07/2017Transcribed:CARLOS/CADEN/VANDA ob #: [id number]:Adina Goodrich MD Edited by:Deb Bianchi MD On 08/10/2017 03:03 PM CSTElectronically Authenticated and Edited by:Deb Bianchi MD On 08/16/2017 04:36 PM CSTElectronically Authenticated by:Adina Goodrich MD On 09/08/2017 05:53 PM [id number] for patient [id number]:53: 18 [facility] 2017-08-31 21:43:11 [id number] 5Hj+5/CDpcqh7bfilbG2km033cq59JD+Q GYYwaQRz2609-14-77U61:43:11 [facility] History and PhysicalPATIENT NAME: IVELISSE SCHUMACHER PHYSICIAN: Shar Ambriz MD Admitted: MR NUMBER: [id number] DISCHARGED: DATE OF SERVICE: 08/07/2017TIME SEEN: Approximately around 1355.REASON FOR EVALUATION:Medical management.REQUESTING PHYSICIAN:Adina Goodrich MDDICTATING PHYSICIAN:Shar Ambriz MD.HISTORY OF PRESENT ILLNESS:This is a 26-year-old male, who has no known past medical problems; however, there is a document here with the patient's hwbqje-yg-duf and mother with a history. Apparently, he [...] noticeable by family. 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 However, the last 5 days,it [...] appears to have a little loss of kick press setter on the left side compared to the [...] will be happy to reevaluate this patient.MOIRA aGrcia/VENDD: 08/07/2017 14:18TD: 08/07/2017 17:40Job #: [id number] Authenticated by:Shar Ambriz MD On 08/11/2017 11:34 AM CSTHPHistory and physical [id number] for patient [id number]:43: 11 [facility]
== END ==
LOC: ER 17:11
DX: Z02.9 Encounter for administrative examinations, unspecified (principal)

== ENCOUNTER 2024-11-16 10:03 | Emergency (ER) | payer OTHER ==
--- OUTSIDE RECORDS SUMMARY | 2024-11-16 10:08 | XMS REPORT | Continuity of Care Document ---
Author Name Unknown Address [address] [place] [address] [facility] Address 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 Name Role Phone Keyonna Wall Primary Care Physician MARIA ANTONIA HOLLIS Attending Clinician Unavailable ISABEL BALLESTEROS Attending Clinician Isabel Garcia MD Attending Clinician + SHEILA HILLMAN Attending Clinician Unavailab Sheila Rodriguez DO Attending Clinician [phone] SUKHJINDER DIAZ Attending Clinician Unavailable SUKHJINDER DIAZ [...] KNOWN ALLERGIE S Drug Class Active [facility] Social History Social Habit Start Date Stop Date Quantity Comments Source Sexual orientation U [facility] Sex Assigned At 1990 00:00:00 1990 00:00:00 [facility] Smoking Status Start Date Stop Date Source Tobacco smoking consumption unknown [facility] Medications Ordered Medication Name Filled Medication Name Start Date Stop Date Current Medication? Ordering Clinician Indication Dosage Frequency Signature (SIG) Comments Components Source ipratropium -albuteroL (DUONEB) 0.5 mg-3 mg(2.5 mg base)/3 mL nebulizer solution 3 mL 09-09 22:54: 00 09-09 22:58 :00 No 3mL 3 mL, Inhalation , ONCE, 1 dose, On Wed09/09/23 at 1700, Routine [facility] benzonatate 100 mg capsule 09-09 00:00: 00 Yes [id number] 100mg Take 1 capsule by mouth 3 (three) times daily as needed for Cough. [facility] albuterol 90 mcg/actuati on inhaler 09-09 00:00: 00 Yes [id number] 2{puff} Inhale 2 Puffs every 6 (six) hours as needed for Wheezing or Shortness of Breath. [facility] maalox:diph enhydrAMINE :lidocaine 2 % viscous 1:1:1 ([facility] HWGLEN LYON BLM) oral suspension 15 mL 2022-08 03:30: 00 05-26 03:23 :00 No 15mL 15 mL, Oral, ONCE, 1 dose, On Wed05/25/23 at 2230, Routine [facility] maalox:diph enhydrAMINE :lidocaine 2 % viscous 1:1:1 ([facility] BLM) oral suspension 15 mL 2022-08 20:15: 00 05-21 20:15 :00 No 15mL 15 mL, Oral, ONCE, 1 dose, On Wed05/21/23 at 1515, Routine [facility] omeprazole 40 mg capsule 2022-08 00:00: 00 Yes [id number] 40mg Take 1 capsule by mouth in the morning. [facility] Vital Signs Vital Name Observation Time Observation Value Comments S eligio Heart rate 2023-09-09 23:03:00 91 /min [facility] Respiratory rate 2023-09-09 23:03:00 16 /min [facility] Oxygen saturation in Arterial blood by Pulse oximetry 2023-09-09 23:03:00 97 /min [facility] Systolic blood pressure 2023-09-09 21:55:00 129 mm[Hg] [facility] Diastolic blood pressure 2023-09-09 21:55:00 84 mm[Hg] [facility] Body temperature 2023-09-09 21:55:00 37 Marcela [facility] Body height 2023-09-09 21:55:00 182.9 cm [facility] Body weight 2023-09-09 21:55:00 163.295 kg [facility] BMI 2023-09-09 21:55:00 48.82 kg/m2 [facility] Heart rate 2023-05-26 03:47:00 75 /min [facility] Body temperature 2023-05-26 03:47:00 37.28 Marcela [facility] Respiratory rate 2023-05-26 03:47:00 16 /min [facility] Oxygen saturation in Arterial blood by Pulse oximetry 2023-05-26 03:47:00 95 /min [facility] Systolic blood pressure 2023-05-26 03:47:00 129 mm[Hg] [facility] Diastolic blood pressure 2023-05-26 03:47:00 76 mm[Hg] [facility] Body height 2023-05-26 02:24:00 182.9 cm [facility] Body weight 2023-05-26 02:24:00 154.223 kg [facility] BMI 2023-05-26 02:24:00 46.11 kg/m2 [facility] Systolic blood pressure 2023-05-21 21:26:06 128 mm[Hg] [facility] Diastolic blood pressure 2023-05-21 21:26:06 94 mm[Hg] [facility] Heart rate 2023-05-21 21:26:06 86 /min [facility] Body temperature 2023-05-21 21:26:06 37.06 Marcela [facility] Respiratory rate 2023-05-21 21:26:06 18 /min [facility] Oxygen saturation in Arterial blood by Pulse oximetry 2023-05-21 21:26:06 100 /min [facility] Body height 2023-05-21 19:31:00 182.9 cm [facility] Body weight 2023-05-21 19:31:00 156.491 kg [facility] BMI 2023-05-21 19:31:00 46.79 kg/m2 [facility] Systolic blood pressure 2023-05-21 16:40:00 128 mm[Hg] [facility] Diastolic blood pressure 2023-05-21 16:40:00 95 mm[Hg] [facility] Heart rate 2023-05-21 16:40:00 92 /min [facility] Body temperature 2023-05-21 16:40:00 37 Marcela [facility] Respiratory rate 2023-05-21 16:40:00 18 /min [facility] Body height 2023-05-21 16:40:00 182.9 cm [facility] Body weight 2023-05-21 16:40:00 156.627 kg [facility] BMI 2023-05-21 16:40:00 46.83 kg/m2 [facility] Oxygen saturation in Arterial blood by Pulse oximetry 2023-05-21 16:40:00 100 /min [facility] Respiratory Rate 2024-02-08 16:27:00 Neftali Lara BP Systolic 2024-02-08 16:27:00 Step hen Chava Lara BP Diastolic 2024-02-08 16:27:00 Duglas phen F Marco Weight Measured 2024-02-08 16:27:00 384.60 pounds Neftali Lara Height Measured 2024-02-08 16:27:00 70.00 inches Neftali Lara Body Temperature 2024-02-08 16:27:00 Neftali Chava Marco Heart Rate 2024-02-08 16:27:00 Pat en F Marco BP Systolic 2024-02-08 16:04:00 111 mm[Hg] Step hen Chava Lara BP Diastolic 2024-02-08 16:04:00 77 mm[Hg] Duglas Lara Weight Measured 2024-02-08 16:04:00 384.60 pounds Neftali Lara Height Measured 2024-02-08 16:04:00 70.00 inches eNftali Lara Body Temperature 2024-02-08 16:04:00 97.50 degrees Neftali Lara Heart Rate 2024-02-08 16:04:00 88.00 /min Pat Lara Respiratory Rate 2024-02-08 16:04:00 18.00 /min Neftali Lara Procedures Procedure Date / Time Performed Performing Clinicia n Source COMP. METABOLIC PANEL (02795) 2023-09-09 22:23:00 Maria Antonia Hollis [facility] CBC WITH DIFF 2023-09-09 22:23:00 Khoa [facility] RAPID INFLUENZA A/B 2023-09-09 22:23:00 Lashonda Hollis [facility] XR CHEST 1 VW 2023-09-09 22:22:56 Khoa [facility] CONSENT/REFUSAL FOR DIAGNOSIS AND TREATMENT 2023-09-09 21:33:59 Doctor Unassigned, Hilham [facility] CONSENT/REFUSAL FOR DIAGNOSIS AND TREATMENT 2023-05-26 02:02:36 Doctor Unassigned, Hilham [facility] ASSIGNMENT OF BENEFITS 2023-05-21 20:39:33 Docto r Unassigned, Hilham [facility] CONSENT/REFUSAL FOR DIAGNOSIS AND TREATMENT 2023-05-21 19:14:42 Doctor Unassigned, Hilham [facility] NOTICE OF PRIVACY PRACTICES 2023-05-21 16:34:41 Doctor Unassigned, Hilham [facility] CONSENT/REFUSAL FOR DIAGNOSIS AND TREATMENT 2023-05-21 16:30:50 Doctor Unassigned, Hilham [facility] Encounters Start Date/Time End Date/Time Encounter Type Admission Type Attending [facility] Care Facility Care Department Encounter ID Source 2024-02-08 15:53:48 2024-02-08 15:53:48 Outpatient [facility] [id number] Neftali Lara 2024-02-08 00:00:00 2024-02-08 00:00:00 Outpatient Visit [facility] [id number] Neftali Lara 2023-09-09 16:08:00 2023-09-09 17:42:00 Emergency X MARIA ANTONIA HOLLIS [facility] ERT [id number] [facility] 2023-09-09 16:08:00 2023-09-09 17:42:00 Emergency Maria Antonia Hollis [facility] [id number] [facility] 2023-05-25 21:28:00 2023-05-25 22:49:00 Emergency X ISABEL BALLESTEROS [facility] ERT [id number] [facility] 2023-05-25 21:28:00 2023-05-25 22:49:00 Emergency Isabel Ballesteros [facility] [id number] [facility] 2023-05-21 14:33:00 2023-05-21 16:29:00 Emergency X KADY SHEILA [facility] ERT [id number] [facility] 2023-05-21 14:33:00 2023-05-21 16:29:00 Emergency Sheila Hillman Praveen [facility] [id number] [facility] 2023-05-21 11:40:00 2023-05-21 12:58:00 Emergency X SUKHJINDER DIAZ TIMOTHY [facility] ERT [id number] [facility] 2023-05-21 11:40:00 2023-05-21 12:58:00 Emergency Sukhjinder Diaz [facility] [id number] [id number] [facility] Results Test Description Test Time Test Comments Results Result Co mments Source THYROID II PROFILE (TU,T4,FTI,TSH)2024-02-10 05:39:38* Test Item Value Reference Range Interpretation Comme nts T-UPTAKE (test code = 2817) 36.1 % 24.3-39.0 THYROX. BIND. CAPAC. (test code = 89572) 0.9 0.8-1.3 T4 (THYROXINE) (test code = 2819) 6.9 UG/DL 4.5-10.5 CORRECTED T4 (FTI) (test code = 2820) 7.7 UG/DL 4.2-11.6 TSH, THIRD GENERATION (test code = 2821) 1.290 UIU/ML 0.400-4.100 UNLESS OTHERWISE INDICATED, ALL TESTING PERFORMED AT CLINICAL PATHOLOGY [employer] [address] [place] [address] BUFFET RUNNER: CARMEN ESQUIVEL M.D. CLIA NUMBER [id number] [facility] [place]. [id number] HEMOGLOBIN [id number] 05:13:37* Test Item Value Reference Range Interpretation Comme [facility] HEMOGLOBIN A1c (test code = 41407) 5.8 % 4.2-5.6 H [place] [employer] GUIDELINES FOR HGB A1C: PREDIABETES/INCREASED RISK . . . . . . . 5.7-6.4% DIAGNOSIS OF DIABETES . . . . . . . . . >=6.5% WITH CONFIRMATION OR APPROPRIATE SYMPTOMS NOTE: ASSAY MAY BE AFFECTED BY HEMOGLOBINOPATHIES (SICKLE CELL ANEMIA, S-C DISEASE, OTHERS) OR ARTIFICIALLY LOWERED BY DECREASED RED CELL SURVIVAL (HEMOLYTIC ANEMIAS, BLOOD LOSS, ETC.). CONSIDER ALTERNATE TESTING OR LABORATORY CONSULTATION. COMPREHENSIVE METABOLIC [id number] 04:31:37* Test Item Value Reference Range Interpretation Comme nts GLUCOSE (test code = 2217) 108 MG/DL 70-99 H BUN (test code = 2208) 17 MG/DL 6-20 CREATININE (test code = 2214) 0.80 MG/DL 0.80-1.40 eGFR (2020 CKD-EPI) (test code = ) 121 ML/MIN/1.73 >60 CALC BUN/CREAT (test code = 2234) 21 RATIO 6-28 SODIUM (test code = 2230) 139 MEQ/L 133-146 POTASSIUM (test code = 2227) 4.5 MEQ/L 3.5-5.4 CHLORIDE (test code = 2214) 106 MEQ/L 95-107 CARBON DIOXIDE (test code = 2205) 20 MEQ/L 19-31 CALCIUM (test code = 2208) 9.4 MG/DL 8.5-10.5 PROTEIN, TOTAL (test code = 2228) 6.4 G/DL 6.1-8.3 ALBUMIN (test code = 2200) 4.0 G/DL 3.5-5.2 CALC GLOBULIN (test code = 2239) 2.4 G/DL 1.9-3.7 CALC A/G RATIO (test code = 2233) 1.7 RATIO 1.0-2.6 BILIRUBIN, TOTAL (test code = 2206) <0.2 MG/DL <=1.2 ALKALINE PHOSPHATASE (test code = 2203) 96 U/L 40-112 AST (test code = 2217) 26 U/L 9-50 ALT (test code = 2218) 50 U/L 5-50 CBC W/AUTO DIFF WITH [id number] 03:29:47* Test Item Value Reference Range Interpretation Comme nts WBC (test code = 1001) 8.3 K/UL 3.5-11.0 RBC (test code = 1002) 5.62 M/UL 4.50-6.10 HEMOGLOBIN (test code = 1003) 16.7 G/DL 13.5-17.0 HEMATOCRIT (test code = 1004) 49.8 % 40.0-51.0 MCV (test code = 1005) 88.6 fL 80.0-99.0 MCH (test code = 1006) 29.7 PG 25.0-33.0 MCHC (test code = 1007) 33.5 G/DL 31.0-36.0 RDW (test code = 1038) 12.8 % 11.5-15.0 NEUTROPHILS (test code = 1008) 51.0 % LYMPHOCYTES (test code = 1010) 35.7 % MONOCYTES (test code = 1011) 10.1 % EOSINOPHILS (test code = 1012) 2.2 % BASOPHILS (test code = 1013) 0.2 % IMMATURE GRANULOCYTES (test code = 1036) 0.8 % NUCLEATED RBCS (test code = 1065) 0.0 /100 WBC'S See_Comment [Automated messa ge] The system which generated this result transmitted reference range: 0.0. The reference range was not used to interpret this result as normal/abnormal. PLATELET COUNT (test code = 1015) 214 K/UL 130-400 ABSOLUTE NEUTROPHILS (test code = 1066) 4.21 K/UL 1.50-7.50 ABSOLUTE LYMPHOCYTES (test code = 1067) 2.96 K/UL 1.00-4.00 ABSOLUTE MONOCYTES (test code = 1068) 0.84 K/UL 0.20-1.00 ABSOLUTE EOSINOPHILS (test code = 1040) 0.18 K/UL 0.00-0.50 ABSOLUTE BASOPHILS (test code = 1069) 0.02 K/UL 0.00-0.20 ABS IMMATURE GRANULOCYTES (test code = 1020) 0.07 K/UL 0.00-0.10 ABS NUCLEATED RBCS (test code = 94153) 0.00 K/UL 0.00-0.11 COMP. METABOLIC PANEL (24683)2023-09-09 22:59:15* Test Item Value Reference Range Interpretation Comme nts NA (test code = 4507894318) 136 mmol/L 135-145 K (test code = 4429590691) 4.1 mmol/L 3.5-5.0 CL (test code = 1353092689) 108 mmol/L 98-108 CO2 TOTAL (test code = 3773957370) 24 mmol/L 23-31 AGAP (test code = 3647228781) 4 2-16 BUN (test code = 5703301622) 13 mg/dL 7-23 GLUCOSE (test code = 6584874467) 96 mg/dL 70-110 CREATININE (test code = 9923130747) 0.83 mg/dL 0.60-1.25 TOTAL BILI (test code = 0949656081) 0.6 mg/dL 0.1-1.1 CALCIUM (test code = 7537231456) 8.7 mg/dL 8.6-10.6 T PROTEIN (test code = 3236581900) 7.1 g/dL 6.3-8.2 ALBUMIN (test code = 6057734785) 3.9 g/dL 3.5-5.0 ALK PHOS (test code = 9521664583) 83 U/L 34-122 ALTv (test code = 1742-6) 38 U/L 5-50 AST(SGOT) (test code = 8360295893) 38 U/L 13-40 eGFR (test code = 25298-7) 120.0 mL/min/1.73m2 CKD-EPI eGFR (20 21). Assuming creatinine has been stable day-to-day for at least three months, the eGFR indicates Category G1 (>= 90 mL/min/1.73 m2) [facility] WITH [id number] 22:52:56* Test Item Value Reference Range Interpretation [...] 33.8 g/dL 31.2-35.0 RDW-SD (test code = 54443-4) 41.6 fL 38.5-51.6 RDW-CV (test code = 788-0) 12.9 % 12.1-15.4 PLT (test code = 777-3) 218 150-328 MPV (test code = 32026-2) 10.0 fL 9.8-13.0 NRBC/100 WBC (test code = 8639349669) 0.0 0.0-10.0 NRBC x10^3 (test code = 1356643534) See_Comment [Automated Mobi[employer]Moto[employer] ge] The system which generated this result transmitted reference range: 10*3/?L. The reference range was not used to interpret this result as normal/abnormal. GRAN MAT (NEUT) % (test code = 770-8) 47.2 % IMM GRAN % (test code = 6817451496) 1.00 % LYMPH % (test code = 736-9) 39.4 % MONO % (test code = 5905-5) 10.0 % EOS % (test code = 713-8) 2.1 % BASO % (test code = 706-2) 0.3 % GRAN MAT x10^3(ANC) (test code = 4748760860) 4.41 10*3/uL 1.99-6.95 IMM GRAN x10^3 (test code = 1634944457) 0.09 10*3/uL 0.00-0.06 H LYMPH x10^3 (test code = 731-0) 3.68 10*3/uL 1.09-3.23 H MONO x10^3 (test code = 742-7) 0.93 10*3/uL 0.36-1.02 EOS x10^3 (test code = 711-2) 0.20 10*3/uL 0.06-0.53 BASO x10^3 (test code = 704-7) 0.03 10*3/uL 0.01-0.09 Lab Interpretation (test code = 14349-3) [facility] [id number] 22:25:13HISTORY: SOB and cough. TECHNIQUE: Portable AP view of the chest is obtained. FINDINGS: Minimal congestion suspected surrounding the right hilum and inboth lower lungs. No acute pneumonia. No pneumothorax or pleural effusiondetected. Cardiac size is within normal limits. CONCLUSIONS: Minimal bilateral pulmonary congestion. Etiology could beviral infection. No pneumonia.[facility] 08:36:00* Test Item Value Reference Range Interpretation Comme nts Ceruloplasmin (test code = 192455) 24.9 mg/dL 16.0-31.0 N Treponema Pallidum [id number] 22:05:00* Test Item Value Reference Range Interpretation Comme nts Treponemal Antibody IgG (rody t code = TREPAB) Non-reactive Non-reactive N [id number] 07:39:00* Test Item Value Reference Range Interpretation Comme nts Phosphorus (test code = PO4) 4.2 mg/dL 2.70-4.50 N Thyroid Stimulating Hormone (TSH)2017-08-07 07:51:00* Test Item Value Reference Range Interpretation Comme nts TSH (test code = TSH) 1.33 mIU/mL 0.270-4.200 N Lipid [id number] 07:46:00* Test Item Value Reference Range Interpretation Comme nts Cholesterol (test code = CHOL) 177 mg/dL 0-200 N Triglycerides (test code = TRIG) 71 mg/dL 9-200 N HDL (test code = HDL) 39 mg/dL 40-60 L Chol/HDL (test code = CHOLPHDL) 4.5 Ratio 0.0-5.0 N LDL, Calculated (test code = LDLC) 124 0-130 N (NOTE)RISK OF HEART DISEASEPublished by North Korean Heart AssociationAnalyte Optimal Boderline Increased RiskCHOL <200 200-239 >240TRIG <150 150-199 >200HDL Male: >60 <40HDL Female: >60 <50LDL <100 130-159 >160LDL NEAR OPTIMAL IS 100-129 VLDL (test code = VLDL) 14 mg/dL 5-40 N LDL/HDL (test code = LDLPHDL) 3 RPR, [id number] 06:55:00* Test Item Value Reference Range Interpretation Comme nts RPR (test code = RPR) Non-Reactive Non-Reactive N [id number] 22:21:00* Test Item Value Reference Range Interpretation [...] = ETOHU) <0.01 g/dL 0.00-0.01 N Urinalysis [id number] 22:13:00* Test Item Value Reference Range Interpretation Comme nts Color (test code = COLOR) Yellow Yellow,Straw,Pl yellow N Clarity (test code = CLAR) Clear Clear N Specific [place] (test code = SPGR) 1.019 1.001-1.035 N [...] code = BACT) None /HPF Comprehensive Metabolic [id number] 20:50:00* Test Item Value Reference Range Interpretation [...] race is not provided, and the patient isAfrican-North Korean, multiply by 1.212. If sex is not [...] the National Kidney Foundation,http://nkdep .nih.gov CBC with [id number] 20:36:00* Test Item Value Reference Range Interpretation [...] code = ALYMPH) 1.5 K/cumm 0.5-4.6 N [place] Abs (test code = AMONO) 0.7 K/cumm 0.0-1.2 N Eos Abs (test code = AEOS) 0.06 K/cumm 0.00-0.74 N Baso Abs (test code = ABASO) 0.0 K/cumm 0.00-0.21 N Notes Date/Time Note Provider Source [facility] 17:41:45 Patient discharged home with rx. Follow up with PCP. Return to ER if condition worsens. [id number] 16:17:58 RT paged for neb treatment. [place] [facility] 15:55:00 Patient states: "I'm having congestion, SOB when I move around since 3 weeks now. I was diagnosed with bronchitis a week ago and finished a course of antibiotics but it still hasn't cleared up, I still feel my chest congested." Patient denies chest pain in triage and states he only have it when he coughs. [employer] Ruth Tilley [facility] - [id number] 17:53:42St. [facility] Discharge Summary PATIENT NAME: IVELISSE SCHUMACHER PHYSICIAN: Deb Bianchi MD Admitted: MR NUMBER: [id number] DISCHARGED: 08/13/2017 02:02:00 REASON FOR ADMISSION: Mr. Schumacher is a 26-year-old male with no past psychiatric history, presenting for a 5-day history of new onset paranoia, confusion, labile mood and verbal aggression in the context of psychosocial stressors (his left him 2 weeks ago [...] may have been on acid on 08/02/2017, the day before the onset of this presentation, but then he came back on this claim. He was evaluated at [facility] twice, got a CT head which [...] isolative and talking less with family since Thanksgiving which is about 1 month prior. Other than that, family denies any other delusions, AVH, disorganized speech, behavior or negative symptoms of schizophrenia. They state that his hygiene is good. He has a good heart. He is responsible. 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 ADMITTING DIAGNOSIS: Brief psychotic disorder with marked stressor versus [...] denies transporting hazardous materials at work as truck service technician. His presentation is in the context of [...] DIAGNOSES: AXIS I: Unspecified schizophrenia spectrum and other psychotic disorder. AXIS II: None. 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 AXIS IV: Lives with mother in [place]. 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 Has supportive family in the area who visit him on a daily basis while in the unit. LEGAL HISTORY: [facility] Discharge Summary PATIENT NAME: IVELISSE SCHUMACHER PHYSICIAN: Deb Bianchi MD Admitted: MR NUMBER: [id number] DISCHARGED: 08/13/2017 02:02:00 REASON FOR ADMISSION: Mr. Schumacher is a 26-year-old male with no past psychiatric history, presenting for a 5-day history of new onset paranoia, confusion, labile mood and verbal aggression in the context of psychosocial stressors (his left him 2 weeks ago [...] may have been on acid on 08/02/2017, the day before the onset of this presentation, but then he came back on this claim. He was evaluated at [facility] twice, got a CT head which [...] family denies any other delusions, AVH, disorganized speech, behavior or negative symptoms of schizophrenia. They state that his hygiene is good. He has a good heart. He is responsible. 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 ADMITTING DIAGNOSIS: Brief psychotic disorder with marked stressor versus [...] denies transporting hazardous materials at work as truck service technician. His presentation is in the context of [...] DIAGNOSES: AXIS I: Unspecified schizophrenia spectrum and other psychotic disorder. AXIS II: None. 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 AXIS IV: Lives with mother in [place]. 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 Has supportive family in the area who visit him on a daily basis while in the unit. LEGAL HISTORY: [facility] Discharge Summary None. High school is his highest level of education. PRINCIPAL PROCEDURES: Psychopharmacotherapy. SPECIAL PROCEDURE: None. [facility] Discharge Summary None. High school is his highest level of education. PRINCIPAL PROCEDURES: Psychopharmacotherapy. SPECIAL PROCEDURE: None. [facility] Discharge Summary HOSPITAL COURSE: Mr. Ivelisse Schumacher [...] have occurred on the unit are 100% his baseline. After this, staff realized that they could eventually redirect him and no more emergency [...] poor, but family assured us that this was his baseline [...] and follow up with his outpatient psychiatrist. [facility] Discharge Summary HOSPITAL COURSE: Mr. Ivelisse Schumacher [...] have occurred on the unit are 100% his baseline. After this, staff realized that they could eventually redirect him and no more emergency [...] poor, but family assured us that this was his baseline [...] and follow up with his outpatient psychiatrist. [facility] Discharge Summary MENTAL STATUS EXAMINATION ON DISCHARGE: The patient is well appearing and borderline cooperative [...] person, place, time and circumstance. Gait is normal. LABORATORY DATA: None relevant to discharge. DRUG REACTIONS AND INTERACTIONS: The patient did have some nausea and vomiting and belly pain in response to Risperdal. DISCHARGE MEDICATIONS: 1. Zyprexa 10 mg p.o. q. 12 hours. 2. Vistaril 50 mg p.o. q. 6 hours p.r.n. for anxiety. 3. Trazodone 50 mg p.o. at bedtime p.r.n. for insomnia. DISCHARGE INSTRUCTIONS: Provided to the patient. PHYSICAL ACTIVITY: As tolerated. DRIVING RESTRICTIONS: Do not drive after taking sedating medications such as Zyprexa, Vistaril and trazodone. DIET RESTRICTIONS: None. FOLLOWUP: The patient has a followup appointment scheduled with [facility] in [place], [place] on 08/18/[address] Apodaca. The patient has been given specific instructions on how to get to the appointment. [facility] Discharge Summary MENTAL STATUS EXAMINATION ON DISCHARGE: The patient is well appearing and borderline cooperative [...] person, place, time and circumstance. Gait is normal. LABORATORY DATA: None relevant to discharge. DRUG REACTIONS AND INTERACTIONS: The patient did have some nausea and vomiting and belly pain in response to Risperdal. DISCHARGE MEDICATIONS: 1. Zyprexa 10 mg p.o. q. 12 hours. 2. Vistaril 50 mg p.o. q. 6 hours p.r.n. for anxiety. 3. Trazodone 50 mg p.o. at bedtime p.r.n. for insomnia. DISCHARGE INSTRUCTIONS: Provided to the patient. PHYSICAL ACTIVITY: As tolerated. DRIVING RESTRICTIONS: Do not drive after taking sedating medications such as Zyprexa, Vistaril and trazodone. DIET RESTRICTIONS: None. FOLLOWUP: The patient has a followup appointment scheduled with [facility] in [place], [place] on 08/18/[address] Apodaca. The patient has been given specific instructions on how to get to the appointment. [facility] Discharge Summary DISPOSITION: Mr. Ivelisse Schumacher is currently stable and tolerating [...] been encouraged to abstain from illicit drug use and to not discontinue any of his psychotropic medications without the guidance of his outpatient psychiatrist. The patient has also met with his social and human services assistant to obtain the appropriate followup paperwork. The importance of following through with this plan had been reviewed with the patient, with the understanding that compliance would be crucial to his recovery. He has been given the [facility] hotline number and information about [facility] if he wishes to obtain therapy. MD Adina Knutson MD LK/SABA TD: 08/13/2017 21:44 CC:Adina Goodrich MD Electronically Authenticated and Edited by: Deb Bianchi MD On 08/16/2017 03:31 PM [facility] Discharge Summary DISPOSITION: Mr. Ivelisse Schumacher is currently stable and tolerating [...] been encouraged to abstain from illicit drug use and to not discontinue any of his psychotropic medications without the guidance of his outpatient psychiatrist. The patient has also met with his social and human services assistant to obtain the appropriate followup paperwork. The importance of following through with this plan had been reviewed with the patient, with the understanding that compliance would be crucial to his recovery. He has been given the [facility] hotline number and information about [facility] if he wishes to obtain therapy. MD Adina Knutson MD LK/SIV/RAM/RAJ TD: 08/13/2017 21:44 CC:Adina Goodrich MD Electronically Authenticated and Edited by: Deb Bianchi MD On 08/16/2017 03:31 PM [facility] Electronically Authenticated by: Adina Goodrich MD On 09/08/2017 05:53 PM [id number] 17:53:18[facility] Psych Eval PATIENT NAME: IVELISSE SCHUMACHER PHYSICIAN: Deb Bianchi MD Admitted: MR NUMBER: [id number] DISCHARGED: Psych Eval Patient Name: IVELISSE SCHUMACHER Date of Service: Date of : 1990 Clinician: Deb Bianchi MD User Field 1: J Encounter Visit: [facility] User Field 3: J Referring Adina Goodrich MD Clinician: ATTENDING PHYSICIAN: Adina Goodrich MD. The patient was admitted on 08/05/2017 to the intake and 08/06/2017 to the inpatient psych floor. INFORMANTS: Patient, the patient's family including the arwseh-sv-sar and his mother as well as an EAD. CHIEF COMPLAINT: Per EAD, delusional, paranoid activity, behavior escalating to verbal aggression. Thinks Tate and rjoanb-tf-sbl wants to shoot and stab him. HISTORY OF PRESENT ILLNESS: Ivelisse Schumacher is a 26-year-old male with no past psychiatric history presenting for a 5-day history of paranoid delusions, confusion, labile mood, and verbal aggression in the context of psychosocial stressors (his left him 2 weeks ago and has been blocking any communication with her as well as his mother whom he lived for 1-2 weeks out of the month lost her home and has been living in a hotel). His UDS is negative x9. The patient was brought in by [facility]'s office and did not sign in voluntarily. On interview, the patient is positive for paranoid delusions stating "did I shoot someone?" The FBI is tapping my phone. He also asked if I was with immigration services and stated he was scared because of his illegal marriage with a woman from [place]. He is also positive for confusion, thinking that he infected someone. He is positive for labile mood and moving from scared to irritable when talking about how he wanted to go home. When speaking with family, we got more of a timeline of events starting at . Family started to notice how he easily forgot things. Since then when he talked on the phone with his mom he was more easily distractible and absent minded. However, he came home about 7-10 days ago and was healthy enough to make a trip to [place] on the Wednesday before , 3 days prior. Then on 08/02/2017, , the patient stated he may have used some acid at a friend's house though he said this was a joke quickly after saying that. On 08/03/2017, he showed up to his family's house. He was asking where his siblings were even though he knew they were in [facility]. He was down and crying and then became very aggressive and was labile. He did not recognize his family including his gozhfn-jm-fkn and mother. He believes that his buryth-kq-cyq was wanting to pull a gun on him and became verbally aggressive, screaming and yelling and slamming cabinet doors. He also stated [facility] Psych Eval PATIENT NAME: WINSOMEALEXISSHANTE PHYSICIAN: Deb Bianchi MD Admitted: MR NUMBER: [id number] DISCHARGED: Psych Eval Patient Name: IEVLISSE SCHUMACHER Date of Service: Date of : 1990 Clinician: Deb Bianchi MD User Field 1: J Encounter Visit: [facility] User Field 3: J Referring Adina Goodrich MD Clinician: ATTENDING PHYSICIAN: Adina Goodrich MD. The patient was admitted on 08/05/2017 to the intake and 08/06/2017 to the inpatient psych floor. INFORMANTS: Patient, the patient's family including the qfadgz-tx-vjf and his mother as well as an EAD. CHIEF COMPLAINT: Per EAD, delusional, paranoid activity, behavior escalating to verbal aggression. Thinks Tate and bhjnyk-wh-pib wants to shoot and stab him. HISTORY OF PRESENT ILLNESS: Ivelisse Schumacher is a 26-year-old male with no past psychiatric history presenting for a 5-day history of paranoid delusions, confusion, labile mood, and verbal aggression in the context of psychosocial stressors (his left him 2 weeks ago and has been blocking any communication with her as well as his mother whom he lived for 1-2 weeks out of the month lost her home and has been living in a hotel). His UDS is negative x9. The patient was brought in by [facility]'s office and did not sign in voluntarily. On interview, the patient is positive for paranoid delusions stating "did I shoot someone?" The FBI is tapping my phone. He also asked if I was with immigration services and stated he was scared because of his illegal marriage with a woman from [place]. He is also positive for confusion, thinking that he infected someone. He is positive for labile mood and moving from scared to irritable when talking about how he wanted to go home. When speaking with family, we got more of a timeline of events starting at [facility]. Family started to notice how he easily forgot things. Since then when he talked on the phone with his mom he was more easily distractible and absent minded. However, he came home about 7-10 days ago and was healthy enough to make a trip to [place] on the Wednesday before , 3 days prior. Then on 08/02/2017, , the patient stated he may have used some acid at a friend's house though he said this was a joke quickly after saying that. On 08/03/2017, he showed up to his family's house. He was asking where his siblings were even though he knew they were in [facility]. He was down and crying and then became very aggressive and was labile. He did not recognize his family including his urczrs-rt-tjn and mother. He believes that his ktnqpo-sx-yjh was wanting to pull a gun on him and became verbally aggressive, screaming and yelling and slamming cabinet doors. He also stated Patient Name: IVELISSE SCHUMACHER "I am going to , I don't want to and started hitting himself on the head." He also stated "I had a meeting with president Karol" and became very paranoid when the TV was on. The patient was taken to [facility] on 08/03/[address] he got a CT of the head showing no acute changes. A UDS was not done at that time. He said he became agitated. He went home and on 08/04/2017, he went back to the hospital and got a UDS that was negative at [facility]. Family states that nothing like this [...] on his phone. He thinks that his osxhzh-en-yib is going to shoot him. He does state that he has a named Juanita from [place] and that he is afraid immigration services are here. It turns out that he does have a named Juanita; however, she is from [facility]. She does not have her papers and family believes that she him just to get citizenship and has disappeared from his life in the last 2 weeks and blocked all communications. On psych review of systems, the patient denies any delusions saying all these things were just [...] None. HOSPITALIZATIONS: None. Patient Name: IVELISSE SCHUMACHER "I am going to , I don't want to and started hitting himself on the head." He also stated "I had a meeting with president Karol" and became very paranoid when the TV was on. The patient was taken to [facility] on 08/03/[address] where he got a CT of the head showing no acute changes. A UDS was not done at that time. He said he became agitated. He went home and on 08/04/2017, he went back to the hospital and got a UDS that was negative at [facility]. Family states that nothing like this [...] are poisoning his food. He thinks that [facility] has put a tap on his phone. He thinks that his robxbq-sk-hpc is going to shoot him. He does state that he has a named Juanita from [place] and that he is afraid immigration services are here. It turns out that he does have a named Juanita; however, she is from [facility]. She does not have her papers and family believes that she him just to get citizenship and has disappeared from his life in the last 2 weeks and blocked all communications. On psych review of systems, the patient denies any delusions saying all these things were just [...] None. HOSPITALIZATIONS: None. Patient Name: IVELISSE SCHUMACHER SUICIDE ATTEMPTS: None. SUBSTANCE USE: Alcohol. He [...] Recent stressors include his mother whom he lives with 1 to 2 weeks out of the year, lost her home and now they are living in a hotel. He also had a , who recently left him and blocked all communication with him. He believes she him just to get residency as she is from [facility] and does not have papers. 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 However, when he is off which is usually 1-2 weeks out of the month, he lives with his mother in a hotel at [place] as they recently lost their house. He has a lot of social support in the area including his mother and his fsfogq-il-oag. 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 LEGAL HISTORY: None. EDUCATION: Highest level is high school. REVIEW OF SYSTEMS: Patient Name: IVELISSE SCHUMACHER SUICIDE ATTEMPTS: None. SUBSTANCE USE: Alcohol. He [...] Recent stressors include his mother whom he lives with 1 to 2 weeks out of the year, lost her home and now they are living in a hotel. He also had a , who recently left him and blocked all communication with him. He believes she him just to get residency as she is from [facility] and does not have papers. 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 However, when he is off which is usually 1-2 weeks out of the month, he lives with his mother in a hotel at [place] as they recently lost their house. He has a lot of social support in the area including his mother and his vzoauj-wa-bem. 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 LEGAL HISTORY: None. EDUCATION: Highest level is high school. REVIEW OF SYSTEMS: Patient Name: IVELISSE SCHUMACHER GENERAL: Denies. HEENT: Has congestion and cough for the last 3 days. CARDIOVASCULAR: Denies. RESPIRATORY: Denies. GASTROINTESTINAL: Denies. GENITOURINARY: Denies. MUSCULOSKELETAL: Has left-sided weakness since childhood and hand contracture of his left hand. NEUROLOGIC: See musculoskeletal above. ENDOCRINE: Denies. SKIN: Denies. PHYSICAL EXAMINATION: VITAL SIGNS: Temperature 98.1, pulse 113, respiratory rate 18, blood pressure 123/85. MENTAL STATUS EXAMINATION ON ADMISSION: He is a disheveled male who is uncooperative with the interview and easily irritable. He [...] as he believes nothing is wrong and wants to leave. His gait is normal. Cognition, he is alert and oriented x4. His abstraction, recall, memory and concentration are grossly intact. He has appropriate fund of knowledge per education level. LABORATORIES: CBC within normal limits. CMP: Sodium [...] whom he lives losing her house. His UDS is negative x9. His CT head was unremarkable. Family does state a period of some prodromal symptoms and schizophrenia including memory problems since Thanksgiving, being less social and distractible during interpersonal Patient Name: IVELISSE SCHUMACHER GENERAL: Denies. HEENT: Has congestion and cough for the last 3 days. CARDIOVASCULAR: Denies. RESPIRATORY: Denies. GASTROINTESTINAL: Denies. GENITOURINARY: Denies. MUSCULOSKELETAL: Has left-sided weakness since childhood and hand contracture of his left hand. NEUROLOGIC: See musculoskeletal above. ENDOCRINE: Denies. SKIN: Denies. PHYSICAL EXAMINATION: VITAL SIGNS: Temperature 98.1, pulse 113, respiratory rate 18, blood pressure 123/85. MENTAL STATUS EXAMINATION ON ADMISSION: He is a disheveled male who is uncooperative with the interview and easily irritable. He [...] him having STDs, being to a from [place]. Thought content denies any SI or HI. Thought process is disorganized and tangential. Insight is poor. Judgment is poor as he believes nothing is wrong and wants to leave. His gait is normal. Cognition, he is alert and oriented x4. His abstraction, recall, memory and concentration are grossly intact. He has appropriate fund of knowledge per education level. LABORATORIES: CBC within normal limits. CMP: Sodium [...] whom he lives losing her house. His UDS is negative x9. His CT head was unremarkable. Family does state a period of some prodromal symptoms and schizophrenia including memory problems since Thanksgiving, being less social and distractible during interpersonal Patient Name: IVELISSE SCHUMACHER interactions. However, his hygiene has remained intact. He takes care of himself. He is positive for paranoid delusions of the FBI tapping his phone, him having [...] CMP, TSH, RPR, UA and CT head, SANDFILL OPERATOR SURFACE infection, neurosyphilis, brain tumor, metabolic abnormalities, nutritional deficiencies and thyroid disorders are less likely. 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 Will order HIV screening test, phosphate levels and ceruloplasmin to rule out HIV, parathyroid issues and Deven's disease. DIAGNOSTIC IMPRESSION: AXIS I: Brief psychotic disorder with marked stressor versus substance-induced psychotic disorder versus a prodromal phase of schizophrenia. AXIS II: None. 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 AXIS IV: Lives with mother in [place] in a hotel as they recently lost their house, has supportive family in the area. 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 Legal history none. Highest education level, high school. Family members include Alyssa Cerda, his iuwhdk-co-scx, her number is [phone]. His mother is Ann Schumacher, her number is [phone] from [facility]. She prefers that we speak with uvtiuz-ed-hfr as she states that her level of Malagasy can make it hard to communicate. PLAN: Ivelisse Schumacher will be admitted to Dr. Goodrich's service on the [facility] and placed on suicide, elopement, [...] attend all group therapy sessions to participate in his treatment, to bring any concerns to the attention of the treatment team. Deb Bianchi MD Patient Name: IVLEISSE SCHUMACHER interactions. However, his hygiene has remained intact. He takes care of himself. He is positive for paranoid delusions of the FBI tapping his phone, him having [...] CMP, TSH, RPR, UA and CT head, SANDFILL OPERATOR SURFACE infection, neurosyphilis, brain tumor, metabolic abnormalities, nutritional deficiencies and thyroid disorders are less likely. 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 Will order HIV screening test, phosphate levels and ceruloplasmin to rule out HIV, parathyroid issues and Deven's disease. DIAGNOSTIC IMPRESSION: AXIS I: Brief psychotic disorder with marked stressor versus substance-induced psychotic disorder versus a prodromal phase of schizophrenia. AXIS II: None. 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 AXIS IV: Lives with mother in [place] in a hotel as they recently lost their house, has supportive family in the area. 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 Legal history none. Highest education level, high school. Family members include Alyssa Cerda, his oqqndq-dy-kml, her number is [phone]. His mother is Ann Schumacher, her number is [phone] from [facility]. She prefers that we speak with elfnsn-pm-dfu as she states that her level of Malagasy can make it hard to communicate. PLAN: Ivelisse Schumacher will be admitted to Dr. Goodrich's service on the [facility] and placed on suicide, elopement, [...] attend all group therapy sessions to participate in his treatment, to bring any concerns to the attention of the treatment team. MD Adina Knutson MD Michael M. Stone, MD Patient Name: IVELISSE SCHUMACHER Date Dictated: 08/07/2017 Date 08/07/2017 Transcribed: CARLOS/JAIME cc:Adina Goodrich MD Edited by: Deb Bianchi MD On 08/10/2017 03:03 PM [facility] Electronically Authenticated and Edited by: Deb Bianchi MD On 08/16/2017 04:36 PM [facility] Patient Name: IVELISSE SCHUMACHER Date Dictated: 08/07/2017 Date 08/07/2017 Transcribed: SELENA cc:Adina Goodrich MD Edited by: Deb Bianchi MD On 08/10/2017 03:03 PM [facility] Electronically Authenticated and Edited by: Deb Bianchi MD On 08/16/2017 04:36 PM [facility] Electronically Authenticated by: Adina Goodrich MD On 09/08/2017 05:53 PM [id number] 21:43:11[facility] History and Physical PATIENT NAME: IVELISSE SCHUMACHER PHYSICIAN: Shar Ambriz MD Admitted: MR NUMBER: [id number] DISCHARGED: DATE OF SERVICE: 08/07/2017 TIME SEEN: Approximately around 1355. REASON FOR EVALUATION: Medical management. REQUESTING PHYSICIAN: Adina Goodrich MD DICTATING PHYSICIAN: Shar Ambriz MD. HISTORY OF PRESENT ILLNESS: This is a 26-year-old male, who has no known past medical problems; however, there is a document here with the patient's akarzp-vx-qxb and mother with a history. Apparently, he does not have any chronic medical conditions, though has a weakened left side and retracted hand on the left side secondary to what appears to be some form of traumatic brain injury as a child. He has not had any surgeries in the past, either. It appeared that around Thanksgiving time, he started to have issues with memory. That was a noticeable by family. 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 However, the last 5 days, it appears that the patient had become even more as he was starting to appear confused and becoming more mood labile. Apparently, he did recognize some of the patient's family members. He was becoming more [...] brought into our hospital under psychiatrist care here. Currently, [...] otherwise, limited 10-point review of systems asked negative. HOME MEDICATIONS: Apparently none. PAST MEDICAL HISTORY: As stated above. PAST SURGICAL HISTORY: Patient Name: IVELISSE SCHUMACHER None. ALLERGIES: NONE KNOWN. SOCIAL HISTORY: Apparently, [...] PHYSICAL EXAMINATION: VITAL SIGNS: Temperature 99.9 degrees Fahrenheit, heart rate 120, respiratory rate 20, blood pressure 123/78, and pulse ox 98% on room air. GENERAL: This patient is lying in bed, appears comfortable, in no acute distress, though appears to be internally preoccupied and engaging with my interview with him. HEENT: Mucous membranes are moist. Normocephalic, atraumatic. EOMI. NECK: Midline supple. No adenopathy. No JVD. CHEST: Clear to auscultation bilaterally. No wheezes, rhonchi or rales. CARDIOVASCULAR SYSTEM: S1, S2 audible. Rhythm is regular. No gallops. ABDOMEN: Soft, nontender, normoactive bowel sounds, nondistended. GENITOURINARY: Deferred. BACK: No spinal or paraspinal tenderness. No CVA tenderness. Good range of motion, otherwise: EXTREMITIES: No cyanosis, clubbing, or edema. Distal extremities are warm. NEUROLOGIC: Limited secondary to his confused state, however, he moves all 4 extremities. His tongue is midline, he appears to have a contracted left upper extremity and his left wrist is preferentially hyperflexed, somewhat contracted. He appears to have a little loss of air table operator on the left side compared to the right. LABORATORY DATA: His urine drug screen was negative here. No alcohol was picked up in the system. White count 7.7, hemoglobin 16.6, platelet count 184,000. Sodium 133, chloride of 96, BUN of 10, creatinine 0.9. LDL calculated at 124. RPR nonreactive. Urinalysis was negative for infection. ASSESSMENT AND PLAN: Patient Name: IVELISSE SCHUMACHER This is a 26-year-old male, who appears to have from what it seems like a new onset psychosis of unclear etiology. He may be developing a new organic mood disorder, which is being worked up by the psychiatric service. At this point, he is not manifesting much in the way of any sort of neurologic signs to suggest any sort of neurodegenerative disorder at this point, his left upper extremity findings appear to be chronic from his history of a traumatic brain injury. At this point, we will defer treatment to the psychiatric service. If he is able to give us any more relevant information and if there are any new findings from internal medicine standpoin, please feel free to give us a call and we will be happy to reevaluate this patient. Shar Ambriz MD RV/MIK TD: 08/07/2017 17:40 Electronically Authenticated by: Shar Ambriz MD On 08/11/2017 11:34 AM [facility]
[2024-11-16 10:41] LABS: Absolute Eosinophils 0.1 K/uL (0-0.5); Absolute Lymphocytes (CBC) 2.8 K/uL (0.7-4.9); Absolute Monocytes 0.7 K/uL (0.1-1.3); Absolute Neutrophil 6.5 K/uL (1.8-8.0); Basophils % 0.3 % (0-1.3); Eosinophils % 1.2 % (0-4.4); Hematocrit 48.4 % (39.6-49.0); Lymphocytes % 27.4 % (15.3-44.8); MCH 30.1 pg (27.0-35.0); MCHC 35.1 g/dL (32.0-36.0); MPV 8.5 fL (7.6-11.3); Neutrophils % 64.1 % (41.7-73.7); Nucleated Red Blood Cells % 0.3 % (0-0); Platelets 215 thou/uL (152-406); RBC Red Blood Cell Count 5.64 M/uL (4.33-5.43); Red Cell Distribution Width 13.7 % (12.1-15.2)
[2024-11-16 10:59] LABS: Albumin 3.4 g/dL (3.4-5.0); Albumin/Globulin Ratio 0.8 (1.1-1.8); Anion Gap 6.6 mEq/L (5.0-15.0); Bilirubin Total 0.4 mg/dL (0.2-1.0); Globulin 4.1 g/dL (2.3-3.5); Potassium 4.6 mEq/L (3.5-5.1); Protein, Total 7.5 g/dL (6.4-8.2)
[2024-11-16] MEDS ORDERED: FAMOTIDINE 20 MG/2 ML VIAL IV ONE (11:37)
[2024-11-16] MEDS ORDERED: ONDANSETRON 4 MG/2 ML VIAL ONE (11:37)
[2024-11-16] MEDS ORDERED: NA CHLORIDE 0.9% 1,000 ML ONE (11:38)
[2024-11-16 11:53] LABS: Specific Gravity 1.019 (1.005-1.030); Urine Bilirubin NEGATIVE (Negative); Urine Blood Negative (Negative); Urine Clarity Clear (Clear); Urine Color Light-Yellow (Yellow); Urine Glucose NEGATIVE (Negative); Urine Ketones NEGATIVE (Negative); Urine Microscopic Reflex YN NO UMIC; Urine Nitrite NEGATIVE (Negative); Urine Protein NEGATIVE (Negative); Urine Urobilinogen Normal (Normal); Urine pH 5.5 (5.0-7.0)
--- NOTE | 2024-11-16 14:26 | EDPHYS ---
Physician Documentation [facility] Name: Brad Recinos Jr Age: 33 yrs Sex: Male : 1990 Arrival Date: 11/16/2024 Time: 10:03 Bed 10 Private MD: [place] Physician Joce Bautista HPI: 11/16 14:18 This 33 yrs old Male presents to ER via Ambulatory with complaints of Abdominal Pain, julien Nausea. 14:18 The patient presents to the emergency department with nausea, abdominal pain, described julien as sharp. Onset: The symptoms/episode began/occurred 1 day(s) ago. Possible causes: unknown. The symptoms are aggravated by nothing. Associated signs and symptoms: The patient has no apparent associated signs or symptoms. Severity of symptoms: At their worst the symptoms were mild in the emergency department the symptoms are unchanged. The patient has experienced similar episodes in the past, a few times. Historical: - Allergies: 10: No Known Allergies; iw - Home Meds: : Invega Sustenna intramuscular every 30 days [Active]; hydroxyzine pamoate 25 mg oral iw capsule every day at bedtime [Active]; - PMHx: 10: fell on head as a baby; TBI; Bipolar disorder; Depressive disorder; Schizophrenia; iw Anxiety; - PSHx: 10:27 Appendectomy; Pilonidal Cyst; iw - Immunization history:: Adult Immunizations not up to date. - Infectious Disease History:: Denies. - Social history:: Smoking status: Patient reports the use of cigarette tobacco products, smokes one pack cigarettes per day. Patient uses Patient/guardian denies using alcohol, street drugs. - Family history:: not pertinent. ROS: 14:18 Constitutional: Negative for fever, chills, and weight loss, Eyes: Negative for injury, julien pain, redness, and discharge, ENT: Negative for injury, pain, and discharge, Neck: Negative for injury, pain, and swelling, Cardiovascular: Negative for chest pain, palpitations, and edema, Respiratory: Negative for shortness of breath, cough, wheezing, and pleuritic chest pain, Back: Negative for injury and pain, : Negative for injury, bleeding, discharge, and swelling, MS/Extremity: Negative for injury and deformity, Skin: Negative for injury, rash, and discoloration, Neuro: Negative for headache, weakness, numbness, tingling, and seizure, Psych: Negative for depression, anxiety, suicide ideation, homicidal ideation, and hallucinations, Allergy/Immunology: Negative for hives, rash, and allergies, Endocrine: Negative for neck swelling, polydipsia, polyuria, polyphagia, and marked weight changes, Hematologic/Lymphatic: Negative for swollen nodes, abnormal bleeding, and unusual bruising, 14:18 Abdomen/GI: Positive for abdominal pain, of the right lower quadrant and left lower quadrant, Exam: 14:18 Constitutional: This is a well developed, well nourished patient who is awake, alert, julien and in no acute distress. Head/Face: Normocephalic, atraumatic. Eyes: Pupils equal round and reactive to light, extra-ocular motions intact. Lids and lashes normal. Conjunctiva and sclera are non-icteric and not injected. Cornea within normal limits. Periorbital areas with no swelling, redness, or edema. ENT: Nares patent. No nasal discharge, no septal abnormalities noted. Tympanic membranes are normal and external auditory canals are clear. Oropharynx with no redness, swelling, or masses, exudates, or evidence of obstruction, uvula midline. Mucous membranes moist. Neck: Trachea midline, no thyromegaly or masses palpated, and no cervical lymphadenopathy. Supple, full range of motion without nuchal rigidity, or vertebral point tenderness. No Meningismus. Chest/axilla: Normal chest wall appearance and motion. Nontender with no deformity. No lesions are appreciated. Cardiovascular: Regular rate and rhythm with a normal S1 and S2. No gallops, murmurs, or rubs. Normal PMI, no JVD. No pulse deficits. Respiratory: Lungs have equal breath sounds bilaterally, clear to auscultation and percussion. No rales, rhonchi or wheezes noted. No increased work of breathing, no retractions or nasal flaring. Abdomen/GI: Soft, non-tender, with normal bowel sounds. No distension or tympany. No guarding or rebound. No evidence of tenderness throughout. Back: No spinal tenderness. No costovertebral tenderness. Full range of motion. Male : Normal genitalia with no discharge or lesions. Skin: Warm, dry with normal turgor. Normal color with no rashes, no lesions, and no evidence of cellulitis. MS/ Extremity: Pulses equal, no cyanosis. Neurovascular intact. Full, normal range of motion., bilateral aka Neuro: Awake and alert, GCS 15, oriented to person, place, time, and situation. Cranial nerves II-XII grossly intact. Motor strength 5/5 in all extremities. Sensory grossly intact. Cerebellar exam normal. Normal gait. Psych: Awake, alert, with orientation to person, place and time. Behavior, mood, and affect are within normal limits. Vital Signs: 10:26 BP 123 / 83; Pulse 86; Resp 19; Temp 97.4; Pulse Ox 96% on R/A; Weight 176.9 kg; Height iw 6 ft. 0 in. ; Pain 7/10; 10:26 Body Mass Index 52.89 (176.90 kg, 182.88 cm) iw 10:26 Pain Scale: Adult iw MDM: 10:11 Medical Screening Exam initiated julien 14:22 Differential diagnosis: Nonspecific abd pain, gastritis, cholecystitis, pancreatitis, julien appendicitis, diverticulitis, viral gastroenteritis, gastroenteritis. Data reviewed: vital signs, nurses notes, lab test result(s), radiologic studies, CT scan. Consideration of Admission/Observation Escalation of care including admission/observation considered. I considered the following discharge prescriptions or medication management in the emergency department Medications were administered in the Emergency Department. See MAR. Independent interpretation of the following test(s) in the Emergency Department CT Scan: My interpretation is ct abd/pel. Historians other than the Patient: Parent: mom well informed. Care significantly affected by the following chronic conditions: schizo, anxiety, bipolar, tbi. 11/16 10:11 Order name: CBC with Diff; Complete Time: 11:28 [facility] 11/16 10:11 Order name: CMP; Complete Time: 11:28 [facility] 11/16 10:11 Order name: Lipase; Complete Time: 11:28 [facility] 11/16 10:11 Order name: Urinalysis w/ reflexes; Complete Time: 13:56 [facility] 11/16 13:56 Order name: CT Abd/Pelvis - IV Contrast Only [facility] 11/16 10:11 Order name: IV Saline Lock; Complete Time: 10:59 [facility] 11/16 10:11 Order name: Labs collected and sent; Complete Time: 10:59 [facility] Administered Medications: 11:44 Drug: Famotidine IVP 20 mg IVP once; dilute with 10 mL 0.9% NaCl; give over 2 minutes ll1 Route: IVP; Site: right antecubital; 14:00 Follow up: Response: No adverse reaction aa5 11:44 Drug: Ondansetron IVP 4 mg IVP once; over 2 minutes Route: IVP; Site: right antecubital;ll1 14:00 Follow up: Response: No adverse reaction aa5 11:44 Drug: NS 0.9% IV 1000 ml IV at 1 bolus Per protocol; to be given as a bolus over 60 ll1 minutes Route: IV; Rate: 1 bolus; Site: right antecubital; 14:00 Follow up: IV Status: Completed infusion; IV Intake: 1000ml aa5 Disposition Summary: 11/16/24 14:26 Discharge Ordered Notes: Location: Home julien Problem: new julien Symptoms: have improved julien Condition: Stable julien Diagnosis - Abdominal pain, Generalized julien - Nausea julien Followup: julien - With: Private Physician - When: 2 - 3 days - Reason: Recheck today's complaints, Continuance of care, Re-evaluation by your physician Followup: julien - With: Edson Clark MD - When: 2 - 3 days - Reason: Recheck today's complaints, Re-evaluation by your physician Discharge Instructions: - Discharge Summary Sheet julien - Abdominal Pain, Adult julien - Nausea, Adult julien - Abdominal Pain, Adult, [id number] [facility] Forms: - Medication Reconciliation Form julien - Antibiotic Education julien - Prescription Opioid Use julien - Patient Portal Instructions [facility] - Leadership Thank You Letter [facility] Prescriptions: - Pepcid 20 mg Oral Tablet - take 1 tablet ORAL route every 12 hours for 10 days; 20 tablet; Refills: 0, [facility] Product Selection Permitted - Zofran 4 mg Oral Tablet - take 1 tablet ORAL route every 12 hours As needed; 20 tablet; Refills: 0, [facility] Product Selection Permitted - dicyclomine 20 mg Oral tablet - take 1 tablet ORAL route 4 times per day; 28 tablet; Refills: 0, Product [facility] Selection Permitted Signatures: Dispatcher [employer] Joce Chan MD MD cha Williams, Irene, RN RN iw Mariya Johnson RN RN ll1 Rehana Roberson RN aa5 Corrections: (The following items were deleted from the chart) 10:12 10:12 CBC+H.LAB.BRZ ordered. EDMS EDMS 10:12 10:12 COMPREHENSIVE METABOLIC PANEL+C.LAB.BRZ ordered. EDMS EDMS 10:12 10:12 LIPASE+C.LAB.BRZ ordered. EDMS EDMS 10:12 10:12 Urinalysis+U.LAB.BRZ ordered. EDMS EDMS 13:57 13:57 Abdomen Pelvis W Con+CT.RAD.BRZ ordered. EDMS EDMS
--- NOTE | 2024-11-16 14:26 | ER ---
Nurse's Notes [facility] Name: Brad Recinos Jr Age: 33 yrs Sex: Male : 1990 Arrival Date: 11/16/2024 Time: 10:03 Bed 10 Private MD: Diagnosis: Abdominal pain, Generalized;Nausea Presentation: 11/16 10:26 Chief complaint: Patient states: woke up this morning with sharp and pain to RUQ, iw nauseated , no vomiting, no diarrhea. Coronavirus screen: At this time, the client does not indicate any symptoms associated with coronavirus-19. Ebola Screen: No symptoms or risks identified at this time. Initial Sepsis Screen: Does the patient meet any 2 criteria? No. Patient's initial sepsis screen is negative. Does the patient have a suspected source of infection? No. Patient's initial sepsis screen is negative. Risk Assessment: Do you want to hurt yourself or someone else? Patient reports no desire to harm self or others. Onset of symptoms was November 16, 2024. 10:26 Method Of Arrival: Ambulatory iw 10:26 Acuity: ANABELLE 3 iw Historical: - Allergies: 10:27 No Known Allergies; iw - Home Meds: 10:27 Invega Sustenna intramuscular every 30 days [Active]; hydroxyzine pamoate 25 mg oral iw capsule every day at bedtime [Active]; - PMHx: 10:27 fell on head as a baby; TBI; Bipolar disorder; Depressive disorder; Schizophrenia; iw Anxiety; - PSHx: 10:27 Appendectomy; Pilonidal Cyst; iw - Immunization history:: Adult Immunizations not up to date. - Infectious Disease History:: Denies. - Social history:: Smoking status: Patient reports the use of cigarette tobacco products, smokes one pack cigarettes per day. Patient uses Patient/guardian denies using alcohol, street drugs. - Family history:: not pertinent. Screenin:00 [facility] ED Fall Risk Assessment (Adult) History of falling in the last 3 months, iw including since admission No falls in past 3 months (0 pts) Confusion or Disorientation No (0 pts) Intoxicated or Sedated No (0 pts) Impaired Gait No (0 pts) Mobility Assist Device Used No (0 pt) Altered Elimination No (0 pt) Score/Fall Risk Level 0 - 2 = Low Risk Oriented to surroundings, Maintained a safe environment. Abuse screen: Denies threats or abuse. Denies injuries from another. Nutritional screening: No deficits noted. Tuberculosis screening: No symptoms or risk factors identified. Assessment: 11:00 General: Appears in no apparent distress. Behavior is calm, cooperative. Pain: iw Complains of pain in right upper quadrant Pain currently is 8 out of 10 on a pain scale. Neuro: Level of Consciousness is awake, alert, obeys commands, Oriented to person, place, time, situation, Moves all extremities. Full function. Cardiovascular: Patient's skin is warm and dry. Respiratory: Respiratory effort is even, unlabored, Respiratory pattern is regular. GI: Abdomen is non-distended, obese, Abd is soft X 4 quads. GI: Derm: Skin is intact, is healthy with good turgor. Musculoskeletal: Range of motion: intact in all extremities. 14:00 Reassessment: Patient is alert, oriented x 3, equal unlabored respirations, skin aa5 warm/dry/pink. Pt ambulatory to restroom . 15:40 Reassessment: Patient is alert, oriented x 3, equal unlabored respirations, skin aa5 warm/dry/pink. Vital Signs: 10:26 BP 123 / 83; Pulse 86; Resp 19; Temp 97.4; Pulse Ox 96% on R/A; Weight 176.9 kg; Height iw 6 ft. 0 in. ; Pain 7/10; 10:26 Body Mass Index 52.89 (176.90 kg, 182.88 cm) iw 10:26 Pain Scale: Adult iw ED Course: 10:05 Patient arrived in ED. mr 10:11 Joce Bautista MD is Attending Physician. julien 10:15 Initial lab(s) drawn, by ne, sent to lab. Inserted saline lock: 20 gauge in right iw antecubital area, using aseptic technique. Blood collected. Flushed with 10 mL NS. 10:27 Triage completed. iw 10:29 Arm band placed on. iw 11:32 Patient placed in an exam room, on a stretcher. ll1 11:44 Urinalysis w/ reflexes Sent. ll1 11:56 Mariya Johnson, AUGUST is Primary Nurse. ll1 11:56 Warm blanket given. ll1 14:12 CT Abd/Pelvis - IV Contrast Only In Process Unspecified. EDMS 14:25 Edson Clark MD is Referral Physician. [facility] 15:40 No provider procedures requiring assistance completed. IV discontinued, intact, aa5 bleeding controlled, No redness/swelling at site. Pressure dressing applied. Administered Medications: :44 Drug: Famotidine IVP 20 mg IVP once; dilute with 10 mL 0.9% NaCl; give over 2 minutes ll1 Route: IVP; Site: right antecubital; 14:00 Follow up: Response: No adverse reaction aa5 11:44 Drug: Ondansetron IVP 4 mg IVP once; over 2 minutes Route: IVP; Site: right antecubital;ll1 14:00 Follow up: Response: No adverse reaction aa5 11:44 Drug: NS 0.9% IV 1000 ml IV at 1 bolus Per protocol; to be given as a bolus over 60 ll1 minutes Route: IV; Rate: 1 bolus; Site: right antecubital; 14:00 Follow up: IV Status: Completed infusion; IV Intake: 1000ml aa5 Medication: 11:00 VIS not applicable for this client. iw Intake: 14:00 IV: 1000ml; Total: 1000ml. aa5 Outcome: 14:26 Discharge ordered by . [facility] 15:40 Discharged to home ambulatory, [facility] 15:40 Condition: stable 15:40 Discharge instructions given to patient, Instructed on discharge instructions, follow up and referral plans. medication usage, Demonstrated understanding of instructions, follow-up care, medications, Prescriptions given X 3, 15:44 Patient left the ED. aa5 Signatures: Dispatcher [employer] EDLA Joce Bautista MD MD cha Rivera, Mary, [facility] Reg mr Desire Alexandra, AUGUST KOCH iw Rehana Roberson RN RN aa5 Mariya Johnson RN RN ll1
--- NOTE | 2024-11-16 15:02 | RAD REPORT ---
EXAMINATION: CT Abdomen Pelvis W Contrast CLINICAL INDICATION: Male, 33 years old. ABD PAIN TECHNIQUE: CT abdomen and pelvis was performed, after the administration of IV contrast, as per [facility] protocol. Axial, sagittal and coronal reconstructions were obtained. One or more of the following dose reduction techniques were used: Automated exposure control, adjustment of the mA and k V according to patient size, and iterative reconstruction. Unless otherwise specified, incidental findings do not require dedicated imaging follow-up. COMPARISON: 07/07/2014 CT abdomen. 05/25/2023 ultrasound abdomen FINDINGS: LOWER CHEST: The visualized lung bases are clear. LIVER: Mild fatty liver is present. No focal lesion or biliary dilataion is seen. BILIARY SYSTEM: No suspicious abnormalities. SPLEEN: Normal size. No focal lesion. PANCREAS: No mass, ductal dilation, or ha-pancreatic fluid. ADRENALS: Normal; no mass. KIDNEYS: Normal size and contour. No hydronephrosis. URINARY BLADDER: Decompressed limiting evaluation. GASTROINTESTINAL TRACT: No evidence of free air, significant intra-abdominal free fluid, bowel obstru ction or abscess. Mild mural fat deposition along the distal ileum, not reaching the terminal ileum. APPENDIX: Appendix surgically absent. LYMPH NODES: No lymphadenopathy. MUSCULOSKELETAL: No acute or suspicious osseous abnormality. Transitional anatomy of partial lumbariz ation of S1. ADDITIONAL FINDINGS: Diastasis recti, and small umbilical hernia containing fat.. IMPRESSION: No acute or concerning abnormalities seen in the abdomen or pelvis. Mild mural fat deposition along the distal ileum, not reaching the terminal ileum, may reflect sequel ae of prior inflammatory episodes, overall a nonspecific finding. Incidental findings as above.
[2024-11-16 15:59] VITALS: BP 123/83; TEMP 97.4; O2SAT 96
== END 2024-11-16 15:44 | disposition home or self-care (01) ==
LOC: ER 10:03
DX: R10.84 Generalized abdominal pain (principal); R11.0 Nausea; F17.210 Nicotine dependence, cigarettes, uncomplicated; F20.9 Schizophrenia, unspecified; Z87.820 Personal history of traumatic brain injury
CPT/HCPCS: 96361; 85025; 36415; 81003; 83690; 80053; 74177; 96375; 96374; 99284; Q9967; J2405; J7030